=== PATIENT | male | born 1950 | race Caucasian/White ===

== ENCOUNTER 2019-07-08 15:19 | Outpatient (CLI) | payer MEDICARE, OTHER, SELFPAY ==
[2019-07-11 14:05] LABS: Reference Lab Test Result Negative
== END 2019-07-08 15:20 | disposition home or self-care (01) ==
PROVIDERS: PCP Internal Medicine
DX: Z01.84 Encounter for antibody response examination (principal)
CPT/HCPCS: 36415; 86769

== ENCOUNTER 2019-07-20 09:13 | Inpatient (IN) | payer MEDICARE, OTHER, SELFPAY ==
[2019-07-20] VITALS (27 sets, daily range): BP systolic 139–176; BP diastolic 70–94; PULSE 49–69; RESP 12–20; TEMP 36.1–37; O2SAT 99–100; BMI 22.2; BMI 21.4
[2019-07-20 10:28] LABS: Eosinophils Absolute Auto 0.1 K/mm3 (0-0.3); Eosinophils Percent Auto 2.4 % (0-4.4); Hematocrit 23.7 % (42.0-52.0); Hemoglobin 7.6 g/dL (14.0-18.0); Immature Granulocyte Absolute 0.14 K/mm3 (0.00-0.031); Immature Granulocyte Percent A 4.9 % (0-0.5); Lymphocytes Absolute Auto 0.29 K/mm3 (0.9-3.2); Lymphocytes Percent Auto 10.1 % (18.3-44.2); Mean Corpuscular HGB Conc 32.1 g/dl (32-36); Mean Corpuscular Hemoglobin 32.5 pg (26-34); Mean Corpuscular Volume 101.3 fl (80-100); Monocytes Absolute Auto 0.2 K/mm3 (0.1-0.6); Monocytes Percent Auto 6.6 % (2.6-8.5); Neutrophils Absolute Auto 2.1 K/mm3 (1.3-6.7); Platelet Count Result 138 k/mm3 (150-375); Red Blood Count 2.34 M/mm3 (4.6-6.20); Red Cell Distribution Width 16.5 % (11.5-14.5); White Blood Count 2.9 K/mm3 (4.5-10.0)
[2019-07-20 10:37] LABS: INR 1.1; Partial Thromboplastin Time 29.3 SECONDS (22.3-36.8); Prothrombin Time 13.7 Seconds (11.1-14.7)
[2019-07-20 10:40] LABS: Blood Urea Nitrogen 74 mg/dL (9-20); Calcium 9.4 mg/dL (8.4-10.2); Carbon Dioxide 23 mmol/L (22-30); Chloride 101 mmol/L (98-107); Estimated CRCL calculation 8 ml/min; Estimated Glomerular Filt Rate 8; Glucose 89 mg/dL (75-110); Potassium 5.3 mmol/L (3.4-5.0); Sodium 135 mmol/L (137-145)
--- NOTE | 2019-07-20 11:39 | ED.GENADULT ---
HPI - General Adult General Chief complaint: Unspecified Stated complaint: bleeding hemorrhoids Time Seen by Provider: 07/20/19 10:37 History of Present Illness HPI narrative: Patient is a 68-year-old male who presents ER with rectal bleeding. Patient had 2 episodes of large-volume blood come out of his rectum this morning and last night. Patient has history of internal hemorrhoids that have bled to the point of requiring blood transfusion. Feels he may have reached that point again. No dizziness or shortness of breath. He is not on a blood thinner. He has seen Dr. Beltran in the past. Reports chronic constipation. Of note, patient is a renal transplant patient. Related Data Home Medications Medication Instructions Recorded Confirmed atorvastatin 10 mg tablet 10 mg PO DAILY 02/25/19 03/04/19 acetaminophen 500 mg capsule 500 mg PO Q6H PRN 03/04/19 07/20/19 aspirin 81 mg tablet,delayed 81 mg PO DAILY 03/04/19 03/04/19 release famotidine 20 mg tablet 20 mg PO DAILY 03/04/19 03/04/19 prednisone 5 mg tablet 5 mg PO DAILY 03/04/19 03/04/19 valganciclovir 450 mg tablet See Rx Instructions .ROUTE .COMPLEX 03/04/19 03/04/19 belatacept mg IV 07/20/19 calcium polycarbophil [FiberCon] 1,250 mg PO BID 07/20/19 carvedilol BID 07/20/19 cholecalciferol (vitamin D3) 50 mcg PO DAILY 07/20/19 furosemide [Lasix] 80 mg PO DAILY 07/20/19 lactulose See Rx Instructions .ROUTE .COMPLEX 07/20/19 polyethylene glycol 3350 [Miralax] 17 g PO DAILY PRN 07/20/19 sennosides-docusate sodium [Senna PO BID 07/20/19 with Docusate Sodium] sevelamer carbonate TID 07/20/19 sulfamethoxazole-trimethoprim See Rx Instructions .ROUTE .COMPLEX 07/20/19 [Bactrim] sumatriptan succinate mg PO PRN 07/20/19 Allergies Allergy/AdvReac Type Severity Reaction Status Date / Time lisinopril Allergy Severe Swelling Verified 07/20/19 09:44 celecoxib AdvReac Unknown Other Verified 07/20/19 09:42 Anti-InflammatORY MEDS AdvReac Intermediate Other Uncoded 07/20/19 09:43 Review of Systems Review of Systems: All systems reviewed & are unremarkable except as noted in HPI and below Constitutional: Constitutional: Denies chills, Denies fever(s) and Denies weakness ENT: Denies nasal congestion and Denies sore throat Cardiovascular: Cardiovascular: Denies chest pain and Denies radiating jaw, neck or arm pain Gastrointestinal: Gastrointestinal: Denies abdominal pain, Denies nausea and Denies vomiting Comments: Bleeding hemorrhoids Neurologic: Denies dizziness and Denies syncope [facility] Past Medical History Medical History Anemia in chronic kidney disease With history of blood transfusion. Angioedema (~11/2015) Attributed to DARRYN-inhibitor. Benign prostatic hyperplasia Cerebrovascular accident (~2010) Without residual deficit. Chronic back pain Colon polyp (~11/2017) Colonoscopy per Dr. Beltran revealed transverse colon polyp (tubular adenoma), diverticulosis, and internal hemorrhoids. Depression End-stage renal disease on hemodialysis Gastroesophageal reflux disease Hyperlipidemia Hypertension Melanoma Pulmonary embolism Renal transplant failure and rejection Surgical History Surgical History History of bilateral cataract extraction History of inguinal hernia repair History of kidney transplant History of melanoma excision Malignant melanoma excised from the face. History of repair of anterior cruciate ligament of left knee History of repair of right rotator cuff History of toe surgery Right 2nd toe surgery with hardware. Status post creation of arteriovenous fistula Left upper extremity. Family History Family History Mother Cerebrovascular accident Sibling Diabetes mellitus Hypertension Father Coronary artery disease Congestive heart disease Social History Social History (
[2019-07-20 13:54] LABS: Hematocrit 19.8 % (42.0-52.0); Hemoglobin 6.4 g/dL (14.0-18.0)
--- NOTE | 2019-07-20 15:11 | P.PNNP_ITS ---
Progress Note: A&P Assessment and Plan (1) Renal transplant failure and rejection: Code(s): T86.12 - Kidney transplant failure; T86.11 - Kidney transplant rejection Status: Acute (2) S/P kidney transplant: Code(s): Z94.0 - Kidney transplant status Status: Acute (3) Anemia: Code(s): D64.9 - Anemia, unspecified Status: Acute (4) Essential (primary) hypertension: Code(s): I10 - Essential (primary) hypertension Status: Acute Additional Plan * HD today and continue M/W/F schedule - on dialysis given renal transplant failure - hope is that renal tranplant function will improve with time - followed by [facility] * PRBC transfusion PRN * High dose Epogen with HD * GI consultation * Follow H/H FULL CONSULT TO FOLLOW Subjective Date/time seen: 07/20/19 15:11 Patient olerating dialysis at the time of my visit (seen on HD at ~ 3:00PM); no apparent distress noted other that he is hungry and would like to eat something. Exam Narrative: Exam Narrative: General: WD/WN male in NAD Heart: normal S1 and S2; no rub Lungs: clear to auscultation Abdomen: soft, nontender, nondistended, positive bowel sounds Extremities: no cyanosis or clubbing; no edema Skin: warm and dry Objective Data Vital Signs Vital Signs: Vital Signs Temp Pulse Resp BP Pulse Ox 07/20/19 15:00 36.3 C L 60 18 156/79 H 07/20/19 14:44 36.3 C L 59 L 18 147/71 H 07/20/19 13:27 49 L 12 100 07/20/19 12:30 36.1 C L 58 L 20 151/72 H 99 07/20/19 12:28 49 L 12 152/94 H 100 07/20/19 11:16 56 L 15 159/79 H 100 07/20/19 09:31 56 L 07/20/19 09:26 36.1 C L 58 L 14 139/71 100 Intake/Output Intake/Output: Intake & Output 07/17/19 07/18/19 07/19/19 07/20/19 23:59 23:59 23:59 23:59 Intake Total 0 Balance 0 Meds/Results Medications: Active Medications Generic Name Dose Route Start Last Admin Trade Name Freq PRN Reason Stop Dose Admin Epoetin Miguel 20,000 units 07/20/19 19:00 Epogen IV PUSH 07/20/19 19:01 ONCE ONE Acetaminophen 1,000 mg in 100 mls @ 400 mls/hr 07/20/19 11:37 Ofirmev 1,000 Mg Ivpb IVPB 07/21/19 11:38 Q6H PRN Mild Pain (1-3) or Fever Albumin Human 50 mls @ 999 mls/hr 07/20/19 13:03 Albutein IVPB 08/19/19 13:04 Q10M PRN HYPOTENSION Sodium Chloride 250 mls @ 30 mls/hr 07/20/19 13:58 Normal Saline Iv IV CONT 07/20/19 22:17 .Q8H20M STA Morphine Sulfate 4 mg 07/20/19 11:37 Morphine Sulfate Inj IV PUSH Q2H PRN Pain Rated 7-10 Ondansetron HCl 4 mg 07/20/19 11:37 Zofran Inj IV PUSH Q4H PRN Nausea Labs Labs: Laboratory Tests 07/20/19 13:42 07/20/19 10:14
--- NOTE | 2019-07-20 16:14 | WPDGICN ---
Assessment and Plan Assessment and plan (1) Lower GI bleeding: Code(s): K92.2 - Gastrointestinal hemorrhage, unspecified Status: Acute Assessment and Plan: In view of rather massive lower GI bleeding. Plan is for colonoscopy after preparation tonight. Colonoscopy will be performed in the morning. Continue to monitor hemoglobin and transfuse as necessary. (2) Acute on chronic anemia: Code(s): D64.9 - Anemia, unspecified Status: Acute (3) End-stage renal disease on hemodialysis: Code(s): N18.6 - End stage renal disease; Z99.2 - Dependence on renal dialysis Status: Acute Assessment and Plan: Patient receiving transfusion during dialysis this evening. (4) Hypertension: Code(s): I10 - Essential (primary) hypertension Status: Acute (5) S/P kidney transplant: Code(s): Z94.0 - Kidney transplant status Status: Acute Assessment and Plan: Kidney apparently not functioning well after transplantation. Patient remains on dialysis and consideration for additional transplant in the future is being discussed. GI Consult Note Consult date/time: 07/20/19 16:14 HPI: Atiloi Sarmiento is a 68 year old male seen in evaluation at the request of the emergency room. Patient has a history of chronic kidney disease. Underwent renal transplant last year. However new kidney is not working appropriately. Patient remains on dialysis. He has history of hemorrhoids with occasional rectal bleeding. Over the last 2 days has had massive lower GI bleeding with large amount of bright red blood per rectum. Because of massive bleeding he presented the emergency room last evening. He was found to have a hemoglobin of 6.4 today. Baseline hemoglobin several weeks ago with a hemoglobin at 10.4 . Patient denies abdominal pain. His weight appetite has been normal. He does have a tendency to constipation. Patient had a screening colonoscopy prior to renal transplant in 2018 which revealed a benign adenomatous colon polyp. Internal hemorrhoids were also identified at that time. Past medical history is significant for hypertension and arthritis. Medications include atorvastatin, bupropion, carvedilol, calcium, cholecalciferol, famotidine, Lasix, lactulose. Prednisone. Allergies are reported to lisinopril and celecoxib. Review of Systems Review of Systems: All systems reviewed & are unremarkable except as noted in HPI and below PMFSH Past Medical History Medical History Anemia in chronic kidney disease With history of blood transfusion. Angioedema (~11/2015) Attributed to DARRYN-inhibitor. Benign prostatic hyperplasia Cerebrovascular accident (~2010) Without residual deficit. Chronic back pain Colon polyp (~11/2017) Colonoscopy per Dr. Beltran revealed transverse colon polyp (tubular adenoma), diverticulosis, and internal hemorrhoids. Depression End-stage renal disease on hemodialysis Gastroesophageal reflux disease Hyperlipidemia Hypertension Melanoma Pulmonary embolism Renal transplant failure and rejection Surgical History Surgical History History of bilateral cataract extraction History of inguinal hernia repair History of kidney transplant History of melanoma excision Malignant melanoma excised from the face. History of repair of anterior cruciate ligament of left knee History of repair of right rotator cuff History of toe surgery Right 2nd toe surgery with hardware. Status post creation of arteriovenous fistula Left upper extremity. Family History Family History Mother Cerebrovascular accident Sibling Diabetes mellitus Hypertension Father Coronary artery disease Congestive heart disease Social History Social History Social History: The patient
[2019-07-20] MEDS: EPOETIN ALFA 20,000 UNITS/ML VIAL 20000 UNITS IV PUSH (16:42)
--- NOTE | 2019-07-20 16:42 | WPDANESEPP ---
Anes - Eval Pre Procedure Procedure: Operation Date: 07/21/19 08:00 Proposed Procedures p Esophagogastroduodenoscopy & Colonoscopy - Alan Beltran MD Date/Time: 07/20/19 16:42 Pre Op Diagnosis: rectal bleeding/anemia Patient Data Age: 68 Gender: M Height: 5 ft 6 in Weight: 60.3 kg Last Vital Signs Temp 97.6 F 07/20/19 15:16 Pulse 58 L 07/20/19 16:30 Resp 18 07/20/19 15:16 BP 171/70 H 07/20/19 16:30 Pulse Ox 100 07/20/19 13:27 Allergies Allergy/AdvReac Type Severity Reaction Status Date / Time lisinopril Allergy Severe Swelling Verified 07/20/19 09:44 celecoxib AdvReac Unknown Other Verified 07/20/19 09:42 Anti-InflammatORY MEDS AdvReac Intermediate Other Uncoded 07/20/19 09:43 Home Medications Medication Instructions Recorded Confirmed Type tamsulosin 0.4 mg capsule 0.4 mg PO BID #180 cap 02/09/19 03/04/19 Rx atorvastatin 10 mg tablet 10 mg PO DAILY 02/25/19 03/04/19 History acetaminophen 500 mg capsule 500 mg PO Q6H PRN 03/04/19 07/20/19 History aspirin 81 mg tablet,delayed 81 mg PO DAILY 03/04/19 03/04/19 History release famotidine 20 mg tablet 20 mg PO DAILY 03/04/19 03/04/19 History prednisone 5 mg tablet 5 mg PO DAILY 03/04/19 03/04/19 History valganciclovir 450 mg tablet See Rx Instructions .ROUTE .COMPLEX 03/04/19 03/04/19 History bupropion HCl 150 mg tablet,12 hr 150 mg PO BID #180 tablet 04/18/19 Rx sustained-release zolpidem 5 mg tablet 5 mg PO .AT HS #30 tablet 06/30/19 Rx belatacept mg IV 07/20/19 History calcium polycarbophil [FiberCon] 1,250 mg PO BID 07/20/19 History carvedilol BID 07/20/19 History cholecalciferol (vitamin D3) 50 mcg PO DAILY 07/20/19 History furosemide [Lasix] 80 mg PO DAILY 07/20/19 History lactulose See Rx Instructions .ROUTE .COMPLEX 07/20/19 History polyethylene glycol 3350 [Miralax] 17 g PO DAILY PRN 07/20/19 History sennosides-docusate sodium [Senna PO BID 07/20/19 History with Docusate Sodium] sevelamer carbonate TID 07/20/19 History sulfamethoxazole-trimethoprim See Rx Instructions .ROUTE .COMPLEX 07/20/19 History [Bactrim] sumatriptan succinate mg PO PRN 07/20/19 History Laboratory Tests 07/20/19 07/20/19 07/20/19 10:14 10:14 10:14 WBC 2.9 K/mm3 L K/mm3 (4.5-10.0) RBC 2.34 M/mm3 L M/mm3 (4.6-6.20) Hgb 7.6 g/dL L g/dL (14.0-18.0) Hct 23.7 % L % (42.0-52.0) MCV 101.3 fl H fl (80-100) MCH 32.5 pg pg (26-34) MCHC 32.1 g/dl g/dl (32-36) RDW 16.5 % H % (11.5-14.5) Plt Count 138 k/mm3 L k/mm3 (150-375) MPV 11.0 fl H fl (7.4-10.4) Immature Gran % (Auto) 4.9 % H % (0-0.5) Neut % (Auto) 75.0 % H % (45.5-73.1) Lymph % (Auto) 10.1 % L % (18.3-44.2) [place] % (Auto) 6.6 % % (2.6-8.5) Eos % (Auto) 2.4 % % (0-4.4) Baso % (Auto) 1.0 % % (0.2-1.2) Lymph # (Auto) 0.29 K/mm3 L K/mm3 (0.9-3.2) [place] # (Auto) 0.2 K/mm3 K/mm3 (0.1-0.6) Eos # (Auto) 0.1 K/mm3 K/mm3 (0-0.3) Baso # (Auto) 0.0 K/mm3 K/mm3 (0.0-0.1) Abs Immat Gran (auto) 0.14 K/mm3 H K/mm3 (0.00-0.031) Absolute Neuts (auto) 2.1 K/mm3 K/mm3 (1.3-6.7) Absolute Nucleated RBC 0.0 K/mm3 K/mm3 (0.0-0.012) Nucleated RBC % 0.0 % % (0.0-0.2) PT 13.7 Seconds Seconds (11.1-14.7) INR 1.1 APTT 29.3 SECONDS SECONDS (22.3-36.8) Sodium 135 mmol/L L mmol/L (137-145) Potassium 5.3 mmol/L H mmol/L (3.4-5.0) Chloride 101 mmol/L mmol/L (98-107) Carbon Dioxide 23 mmol/L mmol/L (22-30) BUN 74 mg/dL H mg/dL (9-20) Creatinine 7.10 mg/dL H mg/dL (0.7-1.3) Estim Creat Clear Calc 8 ml/min ml/min Estimated GFR 8 L (59 - ) Glucose 89 mg/dL mg/dL (75-110) Calcium 9.4 mg/dL mg/dL
--- NOTE | 2019-07-20 17:00 | PM.IMHP ---
H&P: HPI History of Present Illness Chief complaint: Bleeding hemorrhoids. Narrative: Atilio Sarmiento is a 68-year-old male with end-stage renal disease currently on hemodialysis due to transplant failure, chronic anemia with history of blood transfusions, hypertension, and several other comorbidities who presented to the emergency department earlier this morning for evaluation of bleeding hemorrhoids. He reports hemorrhoidal bleeding over the past 1 month, however over the last 2 days the bleeding has been more severe. This morning he reports passing ?strictly red blood? and thus he came in for evaluation. As mentioned, he has chronic anemia with baseline hemoglobin around 10 grams. On arrival to the emergency department today his hemoglobin was 7.6, with a drop of over 1 gram on repeat lab draw approximately 3 hours later. He is now status post dialysis and did receive blood transfusion at that time. At the time my evaluation, he is drinking his colon prep and feels in his usual state of health. He denies epigastric pain, abdominal pain and rectal pain. No tenesmus. He has not been straining to have bowel movements. No epistaxis, hematuria, or melena. Review of Systems Review of Systems: Narrative: Twelve systems were reviewed with pertinent positives and negatives as per HPI. No fever, chills, or sweats. No recent cold or flu symptoms. He denies chest pain and pleuritic pain. He has occasional dyspnea on exertion, which is unchanged. He denies lower extremity edema. No nausea or vomiting. He still urinates in some amount and denies dysuria. Except as documented, all other systems were reviewed and are negative. [facility] Past Medical History Medical History (Updated 07/20/19 @ 20:19 by Wendy Castellanos PA-C) Anemia in chronic kidney disease With history of blood transfusion. Angioedema (~11/2015) Attributed to DARRYN-inhibitor. Benign prostatic hyperplasia Cerebrovascular accident (~2010) Without residual deficit. Chronic back pain Colon polyp (~11/2017) Colonoscopy per Dr. Beltran revealed transverse colon polyp (tubular adenoma), diverticulosis, and internal hemorrhoids. Depression End-stage renal disease on hemodialysis Gastroesophageal reflux disease Hyperlipidemia Hypertension Melanoma in situ Pulmonary embolism Renal transplant failure and rejection (~01/2019) Surgical History Surgical History (Updated 07/20/19 @ 20:19 by Wendy Castellanos PA-C) History of bilateral cataract extraction History of inguinal hernia repair History of kidney transplant History of melanoma excision Melanoma in situ excised from the face. History of repair of anterior cruciate ligament of left knee History of repair of right rotator cuff History of toe surgery Right 2nd toe surgery with hardware. Status post creation of arteriovenous fistula Left upper extremity. Family History Family History Mother Cerebrovascular accident Sibling Diabetes mellitus Hypertension Father Coronary artery disease Congestive heart disease Social History Social History (Updated 07/20/19 @ 20:20 by Wendy Castellanos PA-C) Social History: The patient is and lives with his in [place]. 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 He is a lifelong nonsmoker and denies alcohol and drug abuse. He designates his , Brigid, as his surrogate decision maker and he wishes to be a full code. Spiritual care concerns: No Meds Home Medications and Allergies Home Medications Medication Instructions Recorded Confirmed Type tamsulosin 0.4 mg capsule 0.4 mg PO BID #180 cap 02/09/19 07/20/19 Rx atorvastatin 10 mg tablet 10 mg PO DAILY 02/25/19 07/20/19 History acetaminophen 500 mg capsule 500 mg PO Q6H PRN 03/04/19 07/20/19 History famotidine 20 mg tablet 20 mg PO DAILY 03/04/19 07/20/19 History prednisone 5 mg tablet 5 mg PO DAILY 03/04/19 07/20/19 History valganciclovir 450 mg
[2019-07-20] MEDS: PEG (High)/E-LYTE SOLN 4,000 ML BTL 4000 ML PO (17:57)
[2019-07-20 18:32] LABS: Hematocrit 24.1 % (42.0-52.0); Hemoglobin 8.1 g/dL (14.0-18.0)
[2019-07-20] MEDS: carvediloL 12.5 MG TABLET PO (21:30)
[2019-07-20] MEDS: TAMSULOSIN HCL 0.4 MG CAPSULE PO (22:41)
[2019-07-21] VITALS (14 sets, daily range): BP systolic 115–162; BP diastolic 60–71; PULSE 56–78; RESP 16–20; TEMP 36.6–37.1; O2SAT 99–100
[2019-07-21] LABS: Hematocrit 27.2 % (42.0-52.0); Hemoglobin 8.9 g/dL (14.0-18.0)
[2019-07-21 06:34] LABS: Basophils Percent Auto 0.6 % (0.2-1.2); Eosinophils Percent Auto 2.5 % (0-4.4); Hematocrit 24.6 % (42.0-52.0); Hemoglobin 8.3 g/dL (14.0-18.0); Immature Granulocyte Absolute 0.02 K/mm3 (0.00-0.031); Immature Granulocyte Percent A 1.3 % (0-0.5); Lymphocytes Absolute Auto 0.24 K/mm3 (0.9-3.2); Mean Corpuscular HGB Conc 33.7 g/dl (32-36); Mean Corpuscular Hemoglobin 32.2 pg (26-34); Mean Corpuscular Volume 95.3 fl (80-100); Mean Platelet Volume 9.9 fl (7.4-10.4); Monocytes Absolute Auto 0.1 K/mm3 (0.1-0.6); Monocytes Percent Auto 8.8 % (2.6-8.5); Neutrophils Absolute Auto 1.2 K/mm3 (1.3-6.7); Neutrophils Percent Auto 71.8 % (45.5-73.1); Platelet Count Result 117 k/mm3 (150-375); Red Blood Count 2.58 M/mm3 (4.6-6.20); Red Cell Distribution Width 16.2 % (11.5-14.5)
[2019-07-21 06:40] LABS: White Blood Count 1.6 K/mm3 (4.5-10.0)
[2019-07-21 06:54] LABS: Blood Urea Nitrogen 33 mg/dL (9-20); Calcium 8.5 mg/dL (8.4-10.2); Carbon Dioxide 29 mmol/L (22-30); Chloride 98 mmol/L (98-107); Estimated CRCL calculation 14 ml/min; Estimated Glomerular Filt Rate 15; Glucose 80 mg/dL (75-110); Potassium 3.9 mmol/L (3.4-5.0); Sodium 138 mmol/L (137-145)
[2019-07-21] MEDS: SODIUM CHLORIDE 0.9% IV 500 ML 10 ML IV CONT (07:33)
--- NOTE | 2019-07-21 07:53 | PC.NURSE ---
Pt off the floor for his EGD and colonoscopy this am.
--- NOTE | 2019-07-21 08:23 | SUR.OPER ---
SPOKE WITH DR. BROOKS AND HE IS AWARE OF 1.1 WBC, INFORMED HIS BILATERAL KNEE REPLACEMENTS WERE BOTH WITHIN THE PAST YEAR PT IS ON SEPTRA INPAT. DR. BROOKS DOES NOT WANT OTHER ANTIBIOTICS GIVEN
--- NOTE | 2019-07-21 08:31 | SUR.OPER ---
COLON ENDED AT 0824 EGD STARTED AT 0831
--- NOTE | 2019-07-21 08:36 | WPDGIPROGNO ---
Progress Note: A&P Additional Plan Patient alert and comfortable. he noted some additional bleeding with preparation for colonoscopy. Bright red blood per rectum described. He denies abdominal or rectal pain. Physical exam reveals him to be alert. Comfortable at rest. Lungs are clear. Heart without murmur. Abdomen is soft and nontender. Digital external rectal exam reveals no masses. Labs reveal hemoglobin 8.3 after transfusion. WBC has decreased to 1.6. Platelets 117 K. impression 1. Acute on chronic anemia. GI blood loss recently from rectal area. Hemorrhoids identified by colonoscopy. These may require surgery because of profound decline in hemoglobin recently. EGD today was unremarkable aside from hiatal hernia. 2.. Leukopenia. Decline in WBC and platelet count suggest he may have hematologic process in place. Consider Hematology evaluation. Continue to monitor hemoglobin. 3. End-stage renal disease. Failed renal transplant patient reminds on dialysis. Likely chronic kidney disease contributes to his baseline chronic anemia. Subjective Date/time seen: 07/21/19 08:36 Objective Data Vital Signs Vital Signs: Vital Signs - 24 hr 07/20/19 09:26 07/20/19 09:31 07/20/19 11:16 Temperature 36.1 C L Pulse Rate 58 L 56 L 56 L Respiratory Rate 14 15 Blood Pressure 139/71 159/79 H Pulse Oximetry 100 100 07/20/19 12:28 07/20/19 12:30 07/20/19 13:27 Temperature 36.1 C L Pulse Rate 49 L 58 L 49 L Respiratory Rate 12 20 12 Blood Pressure 152/94 H 151/72 H Pulse Oximetry 100 99 100 07/20/19 14:01 07/20/19 14:15 07/20/19 14:30 Temperature 36.3 C L Pulse Rate 51 L 59 L 56 L Respiratory Rate 18 Blood Pressure 147/77 H 147/71 H 146/70 H Pulse Oximetry 07/20/19 14:44 07/20/19 14:45 07/20/19 15:00 Temperature 36.3 C L 36.3 C L Pulse Rate 59 L 58 L 60 Respiratory Rate 18 18 Blood Pressure 147/71 H 155/72 H 156/79 H Pulse Oximetry 07/20/19 15:15 07/20/19 15:16 07/20/19 15:30 Temperature 36.4 C Pulse Rate 56 L 56 L 61 Respiratory Rate 18 Blood Pressure 162/76 H 162/76 H 162/82 H Pulse Oximetry 07/20/19 15:45 07/20/19 16:00 07/20/19 16:15 Temperature Pulse Rate 60 58 L 67 Respiratory Rate Blood Pressure 153/77 H 163/79 H 176/91 H Pulse Oximetry 07/20/19 16:30 07/20/19 16:45 07/20/19 17:00 Temperature Pulse Rate 58 L 60 58 L Respiratory Rate Blood Pressure 171/70 H 163/81 H 160/78 H Pulse Oximetry 07/20/19 17:03 07/20/19 17:08 07/20/19 20:23 Temperature 36.7 C Pulse Rate 58 L 63 69 Respiratory Rate 18 Blood Pressure 164/79 H 166/82 H Pulse Oximetry 07/20/19 21:30 07/20/19 22:00 07/21/19 00:00 Temperature 36.9 C Pulse Rate 67 69 56 L Respiratory Rate 16 Blood Pressure 170/79 H Pulse Oximetry 100 07/21/19 04:00 07/21/19 06:00 07/21/19 07:16 Temperature 36.7 C 37.1 C Pulse Rate 64 62 66 Respiratory Rate 16 16 Blood Pressure 156/71 H 162/66 H Pulse Oximetry 100 100 Intake/Output Intake/Output: Intake & Output 07/18/19 07/19/19 07/20/19 07/21/19 23:59 23:59 23:59 23:59 Intake Total 850 3250 Output Total 1600 Balance -750 3250 Meds/Results Medications: Active Medications Generic Name Dose Route Start Last Admin Trade Name Freq PRN Reason Stop Dose Admin Acetaminophen 500 mg 07/20/19 20:26 Tylenol Tablet PO Q6H PRN Mild Pain (Scale Score 1-4) Atorvastatin Calcium 10 mg 07/21/19 09:00 Lipitor PO DAILY JESSA Bupropion HCl 150 mg 07/20/19 21:00 07/20/19 21:30 Wellbutrin-Sr (12 Hr) PO 150 mg Q12HR JESSA Administration Calcium Polycarbophil 1,250 mg 07/21/19 09:00 Fiber Con PO BID JESSA Carvedilol 12.5 mg 07/20/19 21:00 07/20/19 21:30 Coreg PO 12.5 mg Q12HR JESSA Administration Famotidine 20 mg 07/21/19 09:00 Pepcid PO DAILY JESSA Furosemide 80 mg 07/21/19 09:00 Lasix Tablet PO DAILY
[2019-07-21] MEDS: TAMSULOSIN HCL 0.4 MG CAPSULE PO ×2 (10:03→16:17)
[2019-07-21] MEDS: CHOLECALCIFEROL 1,000 UNIT TABLET 2000 UNITS PO (10:03)
[2019-07-21] MEDS: SEVELAMER CARBONATE 800 MG TABLET BY MOUTH ×3 (10:03→16:17)
[2019-07-21] MEDS: SENNA/DOCUSATE SODIUM TABLET 1 TAB PO ×2 (10:04→16:17)
[2019-07-21] MEDS: FUROSEMIDE 80 MG TABLET PO (10:04)
[2019-07-21] MEDS: calcium polycarbophiL 625 MG TABLET 1250 MG PO ×2 (10:04→16:16)
[2019-07-21] MEDS: predniSONE 5 MG TABLET PO (10:04)
[2019-07-21] MEDS: ATORVASTATIN 10 MG TABLET PO (10:04)
[2019-07-21] MEDS: carvediloL 12.5 MG TABLET PO ×2 (10:04→20:45)
[2019-07-21] MEDS: FAMOTIDINE 20 MG TABLET PO (10:05)
--- NOTE | 2019-07-21 12:45 | PM.CNNEP ---
Assessment and Plan Assessment and plan (1) S/P kidney transplant: Code(s): Z94.0 - Kidney transplant status Status: Acute (2) Renal transplant failure and rejection: Code(s): T86.12 - Kidney transplant failure; T86.11 - Kidney transplant rejection Status: Acute (3) Rectal bleeding: Code(s): K62.5 - Hemorrhage of anus and rectum Status: Acute (4) Anemia: Code(s): D64.9 - Anemia, unspecified Status: Acute (5) Hypertension: Qualifiers: Hypertension type: essential hypertension Qualified Code(s): I10 - Essential (primary) hypertension Code(s): I10 - Essential (primary) hypertension Status: Acute Assessment and Plan: . Additional Plan HD tomorrow and continue M/W/F schedule PRBC transfusion Surgery consultation regarding hemorrhoids High dose Epogen with HD continue transplant medications GI following s/p colonoscopy Follow trend of H/H Will continue to follow. History of Present Illness Reason for Consult Consult date: 07/21/19 Reason for consult: acute renal failure (s/p renal transplant failure) Chief Complaint Chief complaint: Bleeding hemorrhoids. History of Present Illness Narrative: The patient is a 68-year-old male with a past medical history as outlined below who presented to [facility] emergency room yessterday for evaluation of bleeding hemorrhoids. He state he has been having hemorrhoidal bleeding over the past month but recently, in the last 2 - 3 days, he has noted the bleeding to be more severe. On the morning of admision, he states he was passing a significant amount of bright red blood. For this reason, he came to the ER for further evaluation. Workup and evaluation in the emergency room demonstrated the a for mention hemorrhoidal bleeding with routine blood test showing a hemoglobin of 7.6 given the constellation of symptoms that he mention as well as the a for mentioned hemoglobin result, he was admitted the hospital for further evaluation and therapy it should be noted that 3 hr after the initial blood draw, his hemoglobin dropped even further to 6.5 and is tentatively going to be transfused with a unit of packed red blood cells with his dialysis treatment. Renal consultation was requested due to his dialysis dependent renal failure. The patient recently had a renal transplant for his end-stage renal disease. 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 Since this issue began in May, he has been back on dialysis on Thursday schedule under my care at [facility]. He received dialysis yesterday and is due for dialysis tomorrow to maintain this schedule. Currently, he appears to be doing reasonably well with no other acute issues or complaints voiced at this time. Review of Systems Review of Systems: Narrative: As per HPI. [facility] Past Medical History Medical History Anemia in chronic kidney disease With history of blood transfusion. Angioedema (~11/2015) Attributed to DARRYN-inhibitor. Benign prostatic hyperplasia Cerebrovascular accident (~2010) Without residual deficit. Chronic back pain Colon polyp (~11/2017) Colonoscopy per Dr. Beltran revealed transverse colon polyp (tubular adenoma), diverticulosis, and internal hemorrhoids. Depression End-stage renal disease on hemodialysis Gastroesophageal reflux disease Hyperlipidemia Hypertension Melanoma in situ Pulmonary embolism Renal transplant failure and rejection (~01/2019) Surgical History Surgical History (Reviewed 07/01
[2019-07-21 14:01] LABS: Hematocrit 26.4 % (42.0-52.0); Hemoglobin 8.4 g/dL (14.0-18.0)
--- NOTE | 2019-07-21 15:41 | PM.CNGS ---
Assessment and Plan Assessment and plan (1) Hemorrhoids, internal, with bleeding: Code(s): K64.8 - Other hemorrhoids Status: Acute Assessment and Plan: The patient was found to have internal hemorrhoids with stigmata of bleeding during his Colonoscopy today associated with profound anemia. The patient was seen in evaluation with Dr. Babcock and treatment options were discussed, including the recommendation of proceeding with anoscopy with rubberband ligation. Description of the procedure, risks, benefits, indications, and expected outcomes were discussed with the patient in detail. All questions were answered. The patient was agreeable to proceed with the bedside procedure today. He tolerated this well and we discussed instructions with the patient after discharge. Will plan to have the patient follow-up with Dr. Babcock in 3 weeks in our office and call sooner if he has any significant pain or rectal bleeding prior to the appointment. Would recommend continuing his currently bowel regimen and also adding Metamucil 1-2 times daily. Also instructed the patient to run warm water with his shower head over perianal area twice daily. Patient is agreeable to staying overnight and will recheck labs again in the morning. Thank you for allowing us to see the patient in consultation. (2) Anemia: Code(s): D64.9 - Anemia, unspecified Status: Acute Assessment and Plan: Received 1 transfusion and hemoglobin stable at 8.4. Will continue to monitor labs. Should stabilize following rubberband ligation. (3) Rectal bleeding: Code(s): K62.5 - Hemorrhage of anus and rectum Status: Acute (4) End-stage renal disease on hemodialysis: Code(s): N18.6 - End stage renal disease; Z99.2 - Dependence on renal dialysis Status: Acute (5) S/P kidney transplant: Code(s): Z94.0 - Kidney transplant status Status: Acute (6) Chronic idiopathic constipation: Code(s): K59.04 - Chronic idiopathic constipation Status: Acute Assessment and Plan: Will add Metamucil as discussed above. Continue normal bowel regimen he was taking previously on discharge for the constipation. (7) Hypertension: Code(s): I10 - Essential (primary) hypertension Status: Acute (8) BPH w/o urinary obs/LUTS: Code(s): N40.0 - Benign prostatic hyperplasia without lower urinary tract symptoms Status: Acute (9) Hyperlipidemia, unspecified: Code(s): E78.5 - Hyperlipidemia, unspecified Status: Acute (10) Pancytopenia: Code(s): D61.818 - Other pancytopenia Status: Acute Additional Plan Discussed and formulated plan of care with Dr. Babcock today. History of Present Illness Consult details Consult date: 07/21/19 Reason for consult: other (Internal hemorrhoids with bleeding and anemia.) Requesting physician: Alan Beltran MD Narrative: The patient is a 68-year-old male who has end-stage renal disease with failed renal transplant currently on hemodialysis, chronic anemia with a history of transfusions, chronic constipation, hypertension, and multiple other medical problems. He presented to the emergency department yesterday with complaints of significant rectal bleeding. He reports having a known history of hemorrhoids that have had issues with bleeding in the past. He reports that typically he is able to apply pressure with a wet wipe after a bowel movement and the bleeding stops. On Thursday, he reports noticing a significant amount of bleeding per his rectum, more than he had in the past, which required the help of his to get the bleeding to stop with applying pressure with a wash cloth. After about 10-15 minutes, he reports the bleeding resolved. He called his transplant team to notify them of this issue and for guidance, and they instructed him to go to the nearest ER for evaluation. ER workup revealed anemia with a hemoglobin of 7.6 and neutropenia. The patient was
--- NOTE | 2019-07-21 15:48 | PM.IMPN ---
Progress Note: A&P Assessment and Plan (1) Hemorrhoids, internal, with bleeding: Code(s): K64.8 - Other hemorrhoids Status: Acute Assessment and Plan: The patient reports a hx of hemorrhoids. He presented to the ED with c/o bleeding hemorrhoids. He reports mild bleeding for the past 1-2 months which worsening in the past 2-3 weeks. He reports two episodes of large volume blood loss Tuesday 07/18 which prompted him to proceed to the ED. He underwent colonosopy by Dr. Beltran today which revealed large internal hemorrhoids with bleeding stigmata which were the likely etiology for his bleeding. He also had extensive medium sized diverticula without active bleeding. General surgery has been consulted as his hemorrhoids have caused profound anemia Continue bowel regimen to prevent constipation Continue to stress the importance of avoiding straining during bowel movements Continue high fiber diet and fiber supplement (2) Acute on chronic anemia: Code(s): D64.9 - Anemia, unspecified Status: Acute Assessment and Plan: He has chronic anemia, likely due to his renal disease and anti-rejection regimen, with baseline Hb 10.3 and Hct 32. Hb at presentation was 07/19 was 7.6g/dL and Hct 23.7%. Hb decreased to 6.4g/dL and Hct 19.8% three hours later and he received 1 unit pRBC yesterday. Hb and Hct are stable today at 8.4g/dL and 26.4% respectively. Vitamin B12, folate, and iron are pending. Continue to monitor hemoglobin and hematocrit closely He will receive epogen with HD per nephrology Transfuse pRBC PRN (3) End-stage renal disease on hemodialysis: Code(s): N18.6 - End stage renal disease; Z99.2 - Dependence on renal dialysis Status: Acute Assessment and Plan: The patient is s/p renal transplant in January 2019, with subsequent failure in June 2019. He follows with the transplant team at [place] and his meat team lead is Dr. Patrick. He is on HD M/W/F. Nephrology is on board and recommendations are greatly appreciated Continue HD on M/W/F schedule per nephrology (4) Hypertension: Qualifiers: Hypertension type: essential hypertension Qualified Code(s): I10 - Essential (primary) hypertension Code(s): I10 - Essential (primary) hypertension Status: Acute Assessment and Plan: Blood pressures were reviewed and are at target. Continue carvedilol Continue lasix Continue to monitor (5) Pancytopenia: Code(s): D61.818 - Other pancytopenia Status: Acute Assessment and Plan: The patient was noted to have pancytopenia. His WBC was 2.9 k/mm3 07/19 and 1.6 today on repeat labs. His absolute neutrophil count is 1.2 k/mm3. His platelet count was 138 k/mm3 07/19 and repeat platelet count today was 117 k/mm3. Hb is 8.3 g/dL and Hct 24.6%. I called to discuss this with Mariely, his construction coordinator with [facility]. She recommended I call and speak with Dr. Webb, one of the renal transplant specialists. She advised that I check CMV DNA PCR and BK DNA PCR and call their team with the results once available. She discussed this is likely due to medications given for his renal transplant/anti-rejection regimen. She advised that he was fine to discharge but will need close outpatient follow-up with the transplant team in 1 week. He will also need repeat labs on Monday 07/24. Plan to send CMV and BK results to [facility] transplant team Subjective Date/time seen: 07/21/19 12:45 Interval history: Mr. Sarmiento is seen and examined at bedside following EGD and colonoscopy earlier today in follow-up for acute on chronic anemia due to hemorrhoids and ESRD. He reports that he is very hungry and eager to eat. He denies further rectal bleeding today. He reports that he generally is generally constipated but is on an bowel regimen which works well. He denies chest pain and shortness of breath. He denies headaches, lightheadedness, and wea
--- NOTE | 2019-07-21 15:55 | P.OP_ITS ---
Procedure Note - Detailed Date of procedure: 07/21/19 Pre-op diagnosis: Bleeding hemorrhoids. Bleeding internal hemorrhoids Post-op diagnosis: same Procedure performed: Anoscopy with rubber-band ligation of internal hemorrhoids Description of procedure: Time-out was performed confirming patient and planned procedure being a anoscopy with hemorrhoid ligation. With the patient in the left lateral decubitus position and Marcelina our SIDE STAPLER helping me we carefully positioned the patient such that I could easily performing anoscopy. This was with his buttocks right at the edge of his bed. I then performed anoscopy completely circumferentially which revealed a large left lateral internal hemorrhoid that appeared to be somewhat irritated and had the signs of previous or fairly recent bleeding. He also had a similar sized right posterolateral Hemorrhoid with some excoriations on it suggesting recent bleeding. and lastlly a small to medium right anterolateral internal hemorrhoid without any signs of recent bleeding. He has a small anterior anal tag externally andno other external hemorrhoids. Following this the anoscope was positioned to expose the left lateral side of the area just above the dentate line. Following this we could see the large irritated internal hemorrhoid. I used the hemorrhoidal grasper to carefully pinch its base and the patient did not complain of any significant pain. Therefore, I passed a grasper through the loop of the hemorrhoid ligator which had been loaded with a black latex rubber band. We then advanced the ligation device over the grasper to the base of the hemorrhoid and fired it releasing the rubber band. There was briefly some mild bright red bleeding. I used a Kleenex through the anoscope to put pressure on this for about 1 minute. I then removed the Kleenex and carefully inspected it. I could see the band in good position. The patient was not having significant pain. I then removed the anoscope waited for about 1-2 minutes the patient stated that he had some aching discomfort but otherwise no sharp discomfort. We therefore placed the anoscope back again such that I could see the right posterior large irritated hemorrhoid and similar procedure was then done to apply another rubber-band at the base of this internal hemorrhoid. The scope was removed and the patient tolerated the procedure well. Estimated blood loss about 5 cc. Surgeon: Saji Babcock MD Drains: No Packing: No Pathology: none sent Complications: No immediate complications Condition: stable Disposition: floor
[2019-07-21 17:48] LABS: Iron 73 ug/dL (49-181)
[2019-07-21 17:59] LABS: Percent Iron Saturation 29 % (20-50)
[2019-07-21 20:08] LABS: Folic Acid 6.1 ng/mL (2.76->20)
[2019-07-21] MEDS: ZOLPIDEM TARTRATE 5 MG TABLET PO (20:45)
[2019-07-22] VITALS (22 sets, daily range): BP systolic 125–158; BP diastolic 61–79; PULSE 51–78; RESP 12–18; TEMP 35.9–37; O2SAT 97–98
[2019-07-22 05:46] LABS: Basophils Percent Auto 0.7 % (0.2-1.2); Eosinophils Percent Auto 2.1 % (0-4.4); Hematocrit 21.8 % (42.0-52.0); Hemoglobin 7.2 g/dL (14.0-18.0); Immature Granulocyte Absolute 0.08 K/mm3 (0.00-0.031); Immature Granulocyte Percent A 5.5 % (0-0.5); Lymphocytes Absolute Auto 0.28 K/mm3 (0.9-3.2); Lymphocytes Percent Auto 19.2 % (18.3-44.2); Mean Corpuscular Volume 96.9 fl (80-100); Mean Platelet Volume 10.4 fl (7.4-10.4); Monocytes Absolute Auto 0.1 K/mm3 (0.1-0.6); Monocytes Percent Auto 8.2 % (2.6-8.5); Neutrophils Absolute Auto 0.9 K/mm3 (1.3-6.7); Neutrophils Percent Auto 64.3 % (45.5-73.1); Platelet Count Result 109 k/mm3 (150-375); Red Blood Count 2.25 M/mm3 (4.6-6.20); Red Cell Distribution Width 16.3 % (11.5-14.5)
[2019-07-22 05:54] LABS: Blood Urea Nitrogen 51 mg/dL (9-20); Calcium 8.6 mg/dL (8.4-10.2); Carbon Dioxide 27 mmol/L (22-30); Chloride 98 mmol/L (98-107); Estimated CRCL calculation 10 ml/min; Estimated Glomerular Filt Rate 10; Glucose 82 mg/dL (75-110); Potassium 4.2 mmol/L (3.4-5.0); Sodium 135 mmol/L (137-145)
[2019-07-22 06:15] LABS: White Blood Count 1.5 K/mm3 (4.5-10.0)
[2019-07-22 06:16] LABS: Anisocytosis 2+ (NORMAL); Ovalocytes 1+ (NORMAL); Platelet Estimate Adequate (Adequate)
--- NOTE | 2019-07-22 07:40 | WPDANESPN ---
Anes - Prog Note Post-Op Date/Time: 07/22/19 07:40 Cardiovascular status: normal Respiratory status: normal Airway patency: baseline Mental status: baseline Post-Op hydration status: normal Vital Signs: Last Vital Signs Temp 36.6 C 07/22/19 06:00 Pulse 68 07/22/19 06:00 Resp 16 07/22/19 06:00 BP 158/64 H 07/22/19 06:00 Pulse Ox 97 07/22/19 06:00 I/O: Intake & Output 07/21/19 07/21/19 07/22/19 15:59 23:59 07:59 Intake Total 490 470 300 Output Total 500 200 Balance 490 -30 100 Laboratory Tests 07/22/19 05:11 07/22/19 05:11 07/21/19 07/21/19 07/21/19 06:19 06:28 13:55 WBC RBC Hgb 8.4 L Hct 26.4 L MCV MCH MCHC RDW Plt Count MPV Immature Gran % (Auto) Neut % (Auto) Lymph % (Auto) Burnet % (Auto) Eos % (Auto) Baso % (Auto) Lymph # (Auto) Burnet # (Auto) Eos # (Auto) Baso # (Auto) Abs Immat Gran (auto) Absolute Neuts (auto) Absolute Nucleated RBC Nucleated RBC % Platelet Estimate Anisocytosis Ovalocytes Sodium Potassium Chloride Carbon Dioxide BUN Creatinine Estim Creat Clear Calc Estimated GFR Glucose Calcium Iron 73 TIBC 253 L % Saturation 29 Ferritin 1130.00 H Vitamin B12 786.0 Folate 6.1 CMV DNA Quant PCR CMV DNA Qnt Source CMV Qnt PCR log IU/mL BK Virus Spec Source BK Virus DNA Quant PCR 07/21/19 07/21/19 07/22/19 13:55 13:55 05:11 WBC 1.5 L* RBC 2.25 L Hgb 7.2 L Hct 21.8 L MCV 96.9 MCH 32.0 MCHC 33.0 RDW 16.3 H Plt Count 109 L MPV 10.4 Immature Gran % (Auto) 5.5 H Neut % (Auto) 64.3 Lymph % (Auto) 19.2 Burnet % (Auto) 8.2 Eos % (Auto) 2.1 Baso % (Auto) 0.7 Lymph # (Auto) 0.28 L Burnet # (Auto) 0.1 Eos # (Auto) 0.0 Baso # (Auto) 0.0 Abs Immat Gran (auto) 0.08 H Absolute Neuts (auto) 0.9 L Absolute Nucleated RBC 0.0 Nucleated RBC % 0.0 Platelet Estimate Adequate Anisocytosis 2+ Ovalocytes 1+ Sodium Potassium Chloride Carbon Dioxide BUN Creatinine Estim Creat Clear Calc Estimated GFR Glucose Calcium Iron TIBC % Saturation Ferritin Vitamin B12 Folate CMV DNA Quant PCR Pending CMV DNA Qnt Source Pending CMV Qnt PCR log IU/mL Pending BK Virus Spec Source Pending BK Virus DNA Quant PCR Pending 07/22/19 05:11 WBC RBC Hgb Hct MCV MCH MCHC RDW Plt Count MPV Immature Gran % (Auto) Neut % (Auto) Lymph % (Auto) Burnet % (Auto) Eos % (Auto) Baso % (Auto) Lymph # (Auto) Burnet # (Auto) Eos # (Auto) Baso # (Auto) Abs Immat Gran (auto) Absolute Neuts (auto) Absolute Nucleated RBC Nucleated RBC % Platelet Estimate Anisocytosis Ovalocytes Sodium 135 L Potassium 4.2 Chloride 98 Carbon Dioxide 27 BUN 51 H D Creatinine 5.50 H Estim Creat Clear Calc 10 Estimated GFR 10 L Glucose 82 Calcium 8.6 Iron TIBC % Saturation Ferritin Vitamin B12 Folate CMV DNA Quant PCR CMV DNA Qnt Source CMV Qnt PCR log IU/mL BK Virus Spec Source BK Virus DNA Quant PCR Post-procedural complaints: none Patient Feedback: Patient satisfied with anesthetic care.
[2019-07-22] MEDS: CHOLECALCIFEROL 1,000 UNIT TABLET 2000 UNITS PO (07:48)
[2019-07-22] MEDS: predniSONE 5 MG TABLET PO (07:49)
[2019-07-22] MEDS: SEVELAMER CARBONATE 800 MG TABLET BY MOUTH ×2 (07:49→12:41)
[2019-07-22] MEDS: carvediloL 12.5 MG TABLET PO (07:49)
[2019-07-22] MEDS: FAMOTIDINE 20 MG TABLET PO (07:49)
[2019-07-22] MEDS: ATORVASTATIN 10 MG TABLET PO (07:49)
[2019-07-22] MEDS: TAMSULOSIN HCL 0.4 MG CAPSULE PO (07:50)
[2019-07-22] MEDS: calcium polycarbophiL 625 MG TABLET 1250 MG PO (07:50)
[2019-07-22] MEDS: SENNA/DOCUSATE SODIUM TABLET 1 TAB PO (07:50)
[2019-07-22] MEDS: FUROSEMIDE 80 MG TABLET PO (07:50)
[2019-07-22] MEDS: ACETAMINOPHEN 500 MG TABLET PO (07:53)
--- NOTE | 2019-07-22 08:03 | WPDGIPROGNO ---
Progress Note: A&P Additional Plan patient alert and comfortable this morning. Had initial hemorrhoid banding yesterday. Physical exam reveals patient to be alert. Comfortable at rest. He is anicteric. Abdomen is soft and nontender. Labs reveal WBC 1.5, hemoglobin 7.2, hematocrit 21.8, platelets 109 K. impression 1. Internal hemorrhoids. Now status post banding appear to been source a recent massive rectal bleeding. Follow-up with Dr. Babcock for additional banding at a later date. High-fiber diet suggested. 2. History of colon polyps. No polyps at this time. Follow-up colonoscopy in 5 years suggested. 3. Acute on chronic anemia. Chronic anemia likely related to kidney disease. Acute anemia could be from GI bleeding. Patient also on immunosuppressant medications for recent kidney transplant. 4. Pancytopenia. Likely related to immunosuppressants related to a kidney transplant. Patient should follow up with Renal Transplant surgery. Continue to monitor CBC frequently. Plan hopefully early discharge. As stated should follow up with Renal Transplant surgery. CBC will need to be monitored closely. Subjective Date/time seen: 07/22/19 08:03 Objective Data Vital Signs Vital Signs: Vital Signs - 24 hr 07/21/19 08:39 07/21/19 08:49 07/21/19 08:59 Temperature Pulse Rate 59 L 65 63 Respiratory Rate 16 20 19 Blood Pressure 115/61 128/65 136/68 Pulse Oximetry 99 99 99 07/21/19 12:44 07/21/19 14:00 07/21/19 16:00 Temperature 36.6 C Pulse Rate 63 70 69 Respiratory Rate 16 Blood Pressure 136/65 Pulse Oximetry 100 07/21/19 20:00 07/21/19 20:45 07/21/19 22:00 Temperature 36.8 C Pulse Rate 78 78 60 Respiratory Rate 16 16 Blood Pressure 139/60 Pulse Oximetry 100 99 07/22/19 00:00 07/22/19 04:00 07/22/19 06:00 Temperature 36.6 C Pulse Rate 63 61 68 Respiratory Rate 16 Blood Pressure 158/64 H Pulse Oximetry 97 07/22/19 07:49 Temperature Pulse Rate 68 Respiratory Rate Blood Pressure Pulse Oximetry Intake/Output Intake/Output: Intake & Output 07/19/19 07/20/19 07/21/19 07/22/19 23:59 23:59 23:59 23:59 Intake Total 850 3960 300 Output Total 1600 500 200 Balance -750 3460 100 Meds/Results Medications: Active Medications Generic Name Dose Route Start Last Admin Trade Name Freq PRN Reason Stop Dose Admin Acetaminophen 500 mg 07/20/19 20:26 07/22/19 07:53 Tylenol Tablet PO 500 mg Q6H PRN Administration Mild Pain (Scale Score 1-4) Atorvastatin Calcium 10 mg 07/21/19 09:00 07/22/19 07:49 Lipitor PO 10 mg DAILY JESSA Administration Bupropion HCl 150 mg 07/20/19 21:00 07/22/19 07:48 Wellbutrin-Sr (12 Hr) PO 150 mg Q12HR JESSA Administration Calcium Polycarbophil 1,250 mg 07/21/19 09:00 07/22/19 07:50 Fiber Con PO 1,250 mg BID JESSA Administration Carvedilol 12.5 mg 07/20/19 21:00 07/22/19 07:49 Coreg PO 12.5 mg Q12HR JESSA Administration Epoetin Miguel 20,000 units 07/22/19 18:47 Epogen IV PUSH 07/22/19 18:48 ONCE ONE Famotidine 20 mg 07/21/19 09:00 07/22/19 07:49 Pepcid PO 20 mg DAILY JESSA Administration Furosemide 80 mg 07/21/19 09:00 07/22/19 07:50 Lasix Tablet PO 80 mg DAILY JESSA Administration Albumin Human 50 mls @ 999 mls/hr 07/20/19 13:03 Albutein IVPB 08/19/19 13:04 Q10M PRN HYPOTENSION Morphine Sulfate 4 mg 07/20/19 11:37 Morphine Sulfate Inj IV PUSH Q2H PRN Pain Rated 7-10 Non-Formulary Medication 0 % 07/20/19 20:30 Belatacept [Nulojix] .ROUTE 08/19/19 20:31 .COMPLEX JESSA Non-Formulary Medication 0 % 07/20/19 20:30 Valganciclovir .ROUTE 08/19/19 20:31 .COMPLEX JESSA Ondansetron HCl 4 mg 07/20/19 11:37 Zofran Inj IV PUSH Q4H PRN Nausea Polyethylene Glycol 17 gm 07/20/19 20:26 Miralax PO DAILY PRN Constipation Prednisone 5 mg 07/21/19 09:00
--- NOTE | 2019-07-22 08:57 | PC.NURSE ---
Patient to dialysis per bed.
--- NOTE | 2019-07-22 09:17 | PM.PNGS ---
Progress Note: A&P Assessment and Plan (1) Hemorrhoids, internal, with bleeding: Code(s): K64.8 - Other hemorrhoids Status: Acute Assessment and Plan: F/U in 3 weeks in the office. (2) Anemia: Code(s): D64.9 - Anemia, unspecified Status: Acute Assessment and Plan: F/U as out patient with nephrology and Transplant service. Additional Plan Okay from the surgical point of view for patient uto be discharged. Would recommend had held shower to the external anal area twice a day. Will follow up with the patient in the office in 3 weeks for repeat anoscopy possible further rubber-band ligation of internal hemorrhoids. Patient should contact the office if he has further bleeding that is more serious. Occasional small amounts of blood are expected. Time Spent With Patient Time with patient: less than 15 minutes Subjective Subjective Date/Time Seen: 07/22/19 09:17 Post Op day: 1 ( No serious bleeding from the rectum) Patient reports: tolerating a regular diet and bowel movement Interval history: Patient is sitting up in bed. He is eating breakfast. He states that he felt that he needed to have a small bowel movement this morning when he urinated. There was a low mucousy bloody fluid that came out. No bright red bleeding or continuing bleeding after the hemorrhoid ligation yesterday afternoon. Review of Systems Constitutional: Constitutional: Reports no additional constitutional complaints ENT: Reports other (Mucous Membranes moist.) Cardiovascular: Cardiovascular: Denies dyspnea Respiratory: Respiratory: Denies pain on inspiration and Denies dyspnea Gastrointestinal: Comments: Now continuing bleeding per rectum. Pain well controlled with Tylenol. Musculoskeletal: Musculoskeletal: Reports other (No calf swelling or edema) Integumentary/Breasts: Skin/Breast: Reports system reviewed and no additional complaints, except as docu Exam Const: General: cooperative, no acute distress, alert and awake Orientation/consciousness: patient oriented x3 HENMT: Mouth: Yes moist mucous membranes Neck: Neck: normal visual inspection Chest: Chest palpation & inspection: normal inspection of the chest Resp: Effort & Inspection: normal respiratory effort Auscultation: clear to auscultation bilaterally Cardio: Jugular venous distension: no JVD Rate: regular rate Rhythm: regular rhythm GI: GI Palp: No abdominal tenderness Auscultation: normal bowel sounds Rectal Exam: deferred Neuro: General: patient oriented x3 and moves all extremities Speech: normal speech Extrem: General: normal exam except as noted Psych: Mental Status: mental status grossly normal Speech and movement: Normal speech and movement present Affect: normal affect Thought content: Yes Normal thought content present Objective Data Vital Signs Vital Signs: Vital Signs - 24 hr 07/21/19 12:44 07/21/19 14:00 07/21/19 16:00 Temperature 36.6 C Pulse Rate 63 70 69 Respiratory Rate 16 Blood Pressure 136/65 Pulse Oximetry 100 07/21/19 20:00 07/21/19 20:45 07/21/19 22:00 Temperature 36.8 C Pulse Rate 78 78 60 Respiratory Rate 16 16 Blood Pressure 139/60 Pulse Oximetry 100 99 07/22/19 00:00 07/22/19 04:00 07/22/19 06:00 Temperature 36.6 C Pulse Rate 63 61 68 Respiratory Rate 16 Blood Pressure 158/64 H Pulse Oximetry 97 07/22/19 07:49 07/22/19 08:00 Temperature Pulse Rate 68 78 Respiratory Rate Blood Pressure Pulse Oximetry Intake/Output Intake/Output: Intake & Output 07/19/19 07/20/19 07/21/19 07/22/19 23:59 23:59 23:59 23:59 Intake Total 850 3960 300 Output Total 1600 500 200 Balance -750 3460 100 Meds/Results Medications: Active Medications Generic Name Dose Route Start Last Admin Trade Name Freq PRN Reason Stop Dose Admin Acetaminophen 500 mg 07/20/19 20:26 07/22/19 07:53 Tylenol Tablet PO 500 mg Q6H PRN Administration
--- NOTE | 2019-07-22 09:56 | P.PNNP_ITS ---
Progress Note: A&P Assessment and Plan (1) Renal transplant failure and rejection: Code(s): T86.12 - Kidney transplant failure; T86.11 - Kidney transplant rejection Status: Acute Assessment and Plan: * [place] transplant attempting to salvage kidney * however, dialysis dependent at this time * continue transplant medications as outlined * HD today and continue M/W/F schedule * electrolytes, volume status, and clearance acceptable (2) Rectal bleeding: Code(s): K62.5 - Hemorrhage of anus and rectum Status: Acute Assessment and Plan: * s/p EGD and colonoscopy with results noted * s/p noscopy with rubber-band ligation of internal hemorrhoids * continue supportive therapy (3) Anemia: Code(s): D64.9 - Anemia, unspecified Status: Acute Assessment and Plan: * likely a combination of renal failure, chronic disease, and #2 * s/p PRBC transfusion on this admission * high dose Epogen with HD * follow trend of H/H (4) Hypertension: Qualifiers: Hypertension type: essential hypertension Qualified Code(s): I10 - Essential (primary) hypertension Code(s): I10 - Essential (primary) hypertension Status: Acute Assessment and Plan: * elevated at this time * follow trend following dialysis * previous readings with in range (5) Pancytopenia: Code(s): D61.818 - Other pancytopenia Status: Acute Assessment and Plan: * presumably secondary to immunosuppressant medications * noted discussion with Transplant physician at [facility] Will continue to follow. Subjective Date/time seen: 07/22/19 09:56 Tolerating dialysis at the time of my visit (seen on HD at ~ 9:45AM); no apparent distress voiced; s/p EGD and colonoscopy as well as anoscopy with rubber-band ligation of internal hemorrhoids yesterday and tolerated these procedure reasonably well. Exam Narrative: Exam Narrative: General: WD/WN male in NAD Heart: normal S1 and S2; no rub Lungs: clear to auscultation Abdomen: soft, nontender, nondistended, positive bowel sounds Extremities: no cyanosis or clubbing; no edema Skin: warm and dry Objective Data Vital Signs Vital Signs: Vital Signs Temp Pulse Resp BP Pulse Ox 07/22/19 09:45 58 L 135/71 07/22/19 09:30 55 L 143/65 H 07/22/19 09:20 59 L 139/68 07/22/19 09:10 36.6 C 63 16 143/70 H 07/22/19 08:00 78 07/22/19 07:49 68 07/22/19 06:00 36.6 C 68 16 158/64 H 97 07/22/19 04:00 61 07/22/19 00:00 63 07/21/19 22:00 36.8 C 60 16 139/60 99 07/21/19 20:45 78 07/21/19 20:00 78 16 100 07/21/19 16:00 69 07/21/19 14:00 36.6 C 70 16 136/65 100 07/21/19 12:44 63 Intake/Output Intake/Output: Intake & Output 07/19/19 07/20/19 07/21/19 07/22/19 23:59 23:59 23:59 23:59 Intake Total 850 3960 540 Output Total 1600 500 200 Balance -750 3460 340 Meds/Results Medications: Active Medications Generic Name Dose Route Start Last Admin Trade Name Freq PRN Reason Stop Dose Admin Acetaminophen 500 mg 07/20/19 20:26 07/22/19 07:53 Tylenol Tablet PO 500 mg Q6H PRN Administration Mild Pain (Scale Score 1-4)
--- NOTE | 2019-07-22 09:56 | PM.PNNEP ---
Progress Note: A&P Assessment and Plan (1) Renal transplant failure and rejection: Code(s): T86.12 - Kidney transplant failure; T86.11 - Kidney transplant rejection Status: Acute Assessment and Plan: [place] transplant attempting to salvage kidney however, dialysis dependent at this time continue transplant medications as outlined HD today and continue M/W/F schedule electrolytes, volume status, and clearance acceptable (2) Rectal bleeding: Code(s): K62.5 - Hemorrhage of anus and rectum Status: Acute Assessment and Plan: s/p EGD and colonoscopy with results noted s/p noscopy with rubber-band ligation of internal hemorrhoids continue supportive therapy (3) Anemia: Code(s): D64.9 - Anemia, unspecified Status: Acute Assessment and Plan: likely a combination of renal failure, chronic disease, and #2 s/p PRBC transfusion on this admission high dose Epogen with HD follow trend of H/H (4) Hypertension: Qualifiers: Hypertension type: essential hypertension Qualified Code(s): I10 - Essential (primary) hypertension Code(s): I10 - Essential (primary) hypertension Status: Acute Assessment and Plan: elevated at this time follow trend following dialysis previous readings with in range (5) Pancytopenia: Code(s): D61.818 - Other pancytopenia Status: Acute Assessment and Plan: presumably secondary to immunosuppressant medications noted discussion with Transplant physician at [facility] Will continue to follow. Subjective Date/time seen: 07/22/19 09:56 Tolerating dialysis at the time of my visit (seen on HD at ~ 9:45AM); no apparent distress voiced; s/p EGD and colonoscopy as well as anoscopy with rubber-band ligation of internal hemorrhoids yesterday and tolerated these procedure reasonably well. Exam Narrative: Exam Narrative: General: WD/WN male in NAD Heart: normal S1 and S2; no rub Lungs: clear to auscultation Abdomen: soft, nontender, nondistended, positive bowel sounds Extremities: no cyanosis or clubbing; no edema Skin: warm and dry Objective Data Vital Signs Vital Signs: Vital Signs Temp Pulse Resp BP Pulse Ox 07/22/19 09:45 58 L 135/71 07/22/19 09:30 55 L 143/65 H 07/22/19 09:20 59 L 139/68 07/22/19 09:10 36.6 C 63 16 143/70 H 07/22/19 08:00 78 07/22/19 07:49 68 07/22/19 06:00 36.6 C 68 16 158/64 H 97 07/22/19 04:00 61 07/22/19 00:00 63 07/21/19 22:00 36.8 C 60 16 139/60 99 07/21/19 20:45 78 07/21/19 20:00 78 16 100 07/21/19 16:00 69 07/21/19 14:00 36.6 C 70 16 136/65 100 07/21/19 12:44 63 Intake/Output Intake/Output: Intake & Output 07/19/19 07/20/19 07/21/19 07/22/19 23:59 23:59 23:59 23:59 Intake Total 850 3960 540 Output Total 1600 500 200 Balance -750 3460 340 Meds/Results Medications: Active Medications Generic Name Dose Route Start Last Admin Trade Name Freq PRN Reason Stop Dose Admin Acetaminophen 500 mg 07/20/19 20:26 07/22/19 07:53 Tylenol Tablet PO 500 mg Q6H PRN Administration Mild Pain (Scale Score 1-4) Atorvastatin Calcium 10 mg 07/21/19 09:00 07/22/19 07:49 Lipitor PO 10 mg DAILY JESSA Administration Bupropion HCl 150 mg 07/20/19 21:00 07/22/19 07:48 Wellbutrin-Sr (12 Hr) PO 150 mg Q12HR JESSA Administration Calcium Polycarbophil 1,250 mg 07/21/19 09:00 07/22/19 07:50 Fiber Con PO 1,250 mg BID JESSA Administration Carvedilol 12.5 mg 07/20/19 21:00 07/22/19 07:49 Coreg PO 12.5 mg Q12HR JESSA Administration Epoetin Miguel 20,000 units 07/22/19 19:00 Epogen IV PUSH 07/22/19 19:01 ONCE ONE Famotidine 20 mg 07/21/19 09:00 07/22/19 07:49 Pepcid PO 20 mg DAILY JESSA Administration Furosemide 80 mg 07/21/19 09:00 07/22/19 07:50 Lasix Tablet PO 80 mg DAILY JESSA Administ
[2019-07-22] MEDS: EPOETIN ALFA 20,000 UNITS/ML VIAL 20000 UNITS IV PUSH (11:15)
--- NOTE | 2019-07-22 12:40 | PC.NURSE ---
Patient returned from dialysis per bed.
[2019-07-22 12:56] LABS: Hematocrit 23.7 % (42.0-52.0); Hemoglobin 7.9 g/dL (14.0-18.0)
--- NOTE | 2019-07-22 14:40 | PM.DS ---
DS: Admitting Diagnosis Admitting Diagnosis Admitting Diagnosis: Kidney transplant failure DS: Discharge Diagnosis Discharge Diagnosis (1) Hemorrhoids, internal, with bleeding: Code(s): K64.8 - Other hemorrhoids Status: Acute (2) Acute on chronic anemia: Code(s): D64.9 - Anemia, unspecified Status: Acute (3) End-stage renal disease on hemodialysis: Code(s): N18.6 - End stage renal disease; Z99.2 - Dependence on renal dialysis Status: Acute (4) Hypertension: Qualifiers: Hypertension type: essential hypertension Qualified Code(s): I10 - Essential (primary) hypertension Code(s): I10 - Essential (primary) hypertension Status: Acute (5) Pancytopenia: Code(s): D61.818 - Other pancytopenia Status: Acute DS: Summary Hospital Course Reason for hospitalization: Bleeding Hemorrhoids Hospital Course: Mr. Sarmiento is a 68 y.o. male with PMH significant for ESRD on HD due to transplant failure and currently on immunosuppresive therapy for transplant therapy, hemorrhoids, chronic anemia with hx of blood transfusions, hypertension, GERD, HTN, and multiple other comorbidities. He presented to the emergency department 07/20/19 due to rectal bleeding. He reported ongoing bleeding for the past 1-2 months with recent onset of large volume bleeding in the past two days prior to admission. Initial workup in the ED revealed WBC 2.900, Hb 7.6, Hct 23.7, platelet count 138, potassium 5.3, BUN 74, and Cr 7.1. Hb dropped to 6.5 and Hct 19.8 three hours later so he was transfused 1 unit pRBC. He as admitted to the hospitalist service and GI was consulted. He underwent colonosopy by Dr. Beltran today which revealed large internal hemorrhoids with bleeding stigmata which were the likely etiology for his bleeding. He also had extensive medium sized diverticula without active bleeding. EGD revealed a hiatal hernia but was otherwise unremarkable. He was advised to begin a high fiber diet and continue his fiber supplement. He was seen by general surgery and underwent rubber-band ligation of his internal hemorrhoids. He was advised to continue his bowel regimen to prevent constipation. He was noted to have pancytopenia. I spoke with Dr. Webb, one of the renal transplant specialists, who advised that I check CMV DNA PCR and BK DNA PCR and call their team with the results once available. She discussed this is likely due to medications given for his renal transplant/anti-rejection regimen. She advised that he was fine to discharge but will need close outpatient follow-up with the transplant team in 1 week. He will also need repeat labs on Monday 07/24. Status at Discharge Functional status at discharge: independent ambulation Overall status at discharge: patient is back to baseline Time Spent with Patient Time attestation: Total time spent providing and/or coordinating discharge services: 45 minutes Exam Narrative: Exam Narrative: General: Well-developed and well-nourished 68 y.o. male sitting in the Gipson's position in bed in no acute distress. HEENT: Normocephalic and atraumatic. EOMI. Mucous membranes moist. Neck: Supple without lymphadenopathy or masses. Cardiac: Regular rate and rhythm. S1 and S2 normal. 2/6 systolic murmur at the LSB. Lungs: Lungs are clear to auscultation bilaterally. Abdomen: Bowel sounds normoactive. Abdomen is soft, non-distended, and non-tender. Extremities: LUE radiocephalic fistula with palpable thrill and audible bruit. No edema to the lower extremities bilaterally. Arianna negative. Neurological: Alert. Exam is non-focal. Speech is clear. Skin: Warm and dry. Psychiatric: Judgment and insight intact. Mood pleasant and affect normal. DS: Data Data Completed and Pending Labs on day of discharge: Labs from last 24 hours 07/22/19 07/22/19 07/22/19 12:50 05:11 05:11 WBC 1.5 L* RBC 2.25 L Hgb 7.9 L 7.2 L Hct 23.7 L 21.8 L MCV 9
[2019-07-27 10:48] LABS: CMV DNA Quant PCR IU/mL <200 IU/mL (<200); Cytomegalovirus DNA Quant PCR <2.30 log IU/mL (<2.30); Cytomegalovirus DNA Source Serum
[2019-07-28 15:18] LABS: BK Virus Specimen Source Plasma
== END 2019-07-22 15:09 | disposition home or self-care (01) | DRG 347 ==
LOC: ANHED 11:04 → ANH2MED 12:02
PROVIDERS: Internal Medicine Gastroenterology; Internal Medicine Nephrology; Physician Assistant; Surgery; Admitting Provider Family Medicine; Emergency Provider Emergency Medicine; PCP Internal Medicine; Visit Provider Hospitalist
PROC: 0DJ08ZZ Inspection of Upper Intestinal Tract, Via Natural or Artificial Opening Endoscopic (ICD-10-PCS; CPT 43235; principal; 2019-07-21 08:00)
DX: K64.8 Other hemorrhoids (principal); N18.6 End stage renal disease; D61.818 Other pancytopenia; T86.11 Kidney transplant rejection; T86.12 Kidney transplant failure; I12.0 Hypertensive chronic kidney disease with stage 5 chronic kidney disease or end stage renal disease; D62 Acute posthemorrhagic anemia; D63.1 Anemia in chronic kidney disease; K59.04 Chronic idiopathic constipation; K64.4 Residual hemorrhoidal skin tags; K57.30 Diverticulosis of large intestine without perforation or abscess without bleeding; N40.0 Benign prostatic hyperplasia without lower urinary tract symptoms; K21.9 Gastro-esophageal reflux disease without esophagitis; K44.9 Diaphragmatic hernia without obstruction or gangrene; E78.5 Hyperlipidemia, unspecified; Z86.73 Personal history of transient ischemic attack (TIA), and cerebral infarction without residual deficits; Z86.010 Personal history of colon polyps; Z99.2 Dependence on renal dialysis; Z85.820 Personal history of malignant melanoma of skin; Z86.711 Personal history of pulmonary embolism; Z79.899 Other long term (current) drug therapy
CPT/HCPCS: 36415; 36430; 80048; 82607; 82728; 82746; 83540; 83550; 85014; 85018; 85025; 85610; 85730; 86850; 86900; 86901; 86923; 87497; 87799; 96361; 96374; 99285; A9270; G0257; G0378; J2704; J7030; J7040; J7512; P9016; Q4081

== ENCOUNTER 2019-07-26 15:28 | Outpatient (CLI) | payer MEDICARE, OTHER, SELFPAY ==
[2019-07-26 16:18] LABS: Hematocrit 24.9 % (42.0-52.0); Hemoglobin 7.9 g/dL (14.0-18.0); Mean Corpuscular HGB Conc 31.7 g/dl (32-36); Mean Corpuscular Hemoglobin 32.4 pg (26-34); Mean Platelet Volume 10.3 fl (7.4-10.4); Platelet Count Result 130 k/mm3 (150-375); Red Blood Count 2.44 M/mm3 (4.6-6.20); Red Cell Distribution Width 17.3 % (11.5-14.5); White Blood Count 2.6 K/mm3 (4.5-10.0)
== END 2019-07-26 15:29 | disposition home or self-care (01) ==
PROVIDERS: Visit Provider Physician Assistant
DX: K92.2 Gastrointestinal hemorrhage, unspecified (principal); D64.9 Anemia, unspecified; N18.6 End stage renal disease; Z99.2 Dependence on renal dialysis
CPT/HCPCS: 36415; 85027

== ENCOUNTER 2019-08-18 10:37 | Outpatient (CLI) | payer MEDICARE, OTHER, SELFPAY ==
--- NOTE | ~2019-08-18 | XR_ITS ---
EXAMINATION: XR chest 2V DATE: 08/18/2019 11:01 INDICATION: Shortness of breath. TECHNIQUE: Frontal and lateral views of the chest were obtained. COMPARISON: Chest 2 views 03/26/2018 FINDINGS: There are small pleural effusions. There is a diffuse interstitial pattern, consistent with mild pulmonary edema. There are airspace opacities at the lung bases, likely atelectasis. There is m ild scarring at the lung apices. No pneumothorax. Cardiomegaly is noted. There is a moderate-sized hi atal hernia. There are suture anchors in right humeral head. IMPRESSION: 1. Mild pulmonary edema with small pleural effusions. 2. Cardiomegaly. 3. Moderate-sized hiatal hernia. Reviewed, dictated and finalized at location A.
== END 2019-08-18 10:38 | disposition home or self-care (01) ==
LOC: ANHIMG 10:44
PROVIDERS: Visit Provider Internal Medicine Nephrology
DX: R06.02 Shortness of breath (principal); K44.9 Diaphragmatic hernia without obstruction or gangrene; J81.1 Chronic pulmonary edema; I51.7 Cardiomegaly
CPT/HCPCS: 71046

== ENCOUNTER 2020-02-03 08:21 | Outpatient (NON) | payer MEDICARE, OTHER, SELFPAY ==
[2020-02-04 00:20] LABS: SARS-CoV-2 RNA PCR Negative
== END 2020-02-03 08:22 ==
PROVIDERS: Visit Provider Nurse Practitioner
DX: R68.89 Other general symptoms and signs (principal); Z20.828 Contact with and (suspected) exposure to other viral communicable diseases
CPT/HCPCS: 87635; C9803; U0003

== ENCOUNTER 2020-02-21 14:08 | Outpatient (CLI) | payer MEDICARE, OTHER, SELFPAY ==
--- NOTE | ~2020-02-21 | XR_ITS ---
EXAMINATION: XR chest 2V EXAM DATE: 02/21/2020 14:22 INDICATION: R06.02 - Shortness of breath. TECHNIQUE: Frontal and lateral projections of the chest obtained and reviewed. Comparison is made to prior examination from 08/18/2019. FINDINGS: Mild cardiomegaly. There is moderate sliding gastroesophageal hiatal hernia. Some biapical scarring. Near resolution of previously seen right pleural effusion. No acute airspace disease or pn eumothorax. There are mild bony degenerative changes. Right-sided rotator cuff repair anchors. Lumbar scoliosis. IMPRESSION: 1. No acute cardiopulmonary findings. 2. Moderate hiatal hernia. 3. Mild cardiomegaly. Reviewed, dictated and finalized at location B. 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
== END 2020-02-21 14:09 | disposition home or self-care (01) ==
PROVIDERS: Visit Provider Nurse Practitioner
DX: R06.02 Shortness of breath (principal); K44.9 Diaphragmatic hernia without obstruction or gangrene; I51.7 Cardiomegaly
CPT/HCPCS: 71046

== ENCOUNTER 2020-04-16 11:49 | Outpatient (CLI) | payer MEDICARE, OTHER, SELFPAY ==
--- NOTE | ~2020-04-16 | XR_ITS ---
XR chest 2V DATE: 04/16/2020 12:13 INDICATION: Pneumonia TECHNIQUE: PA and lateral views COMPARISON: 02/21/2020 PA and lateral chest FINDINGS: Cardiomegaly. Aortic calcification and mild tortuosity. Small pleural effusions and mild prominence of the fissures suggesting mild congestive change. No pul monary infiltrate or consolidation. No pneumothorax. Moderately large hiatal hernia. Diffuse osteopenia. Bilateral chronic rotator cuff atrophy. Scoliosis and degenerative change of the thoracolumbar spine. IMPRESSION: Cardiomegaly and mild congestive changes Hiatal hernia Reviewed, dictated and finalized at location B. NG ANALYST
== END 2020-04-16 11:50 | disposition home or self-care (01) ==
LOC: ANHIMG 12:00
PROVIDERS: Visit Provider Internal Medicine Nephrology
DX: N18.6 End stage renal disease (principal); R06.02 Shortness of breath; R09.89 Other specified symptoms and signs involving the circulatory and respiratory systems; K44.9 Diaphragmatic hernia without obstruction or gangrene
CPT/HCPCS: 71046

== ENCOUNTER 2020-04-16 16:41 | Inpatient (IN) | payer MEDICARE, OTHER, SELFPAY ==
--- NOTE | ~2020-04-16 | CT_ITS ---
EXAMINATION: CT diagnostic chest wo con EXAM DATE: 04/24/2020 11:59 INDICATION: pneumonia v chf pattern . TECHNIQUE: Spiral CT of the chest without contrast. Axial, coronal and sagittal images were reviewe d. Coronal maximum intensity pixel images of chest reviewed. The dose-length product (DLP) for this examination was 145.21 mGy-cm. The exposure was tailored according to patient size (auto mA exposur e control), and iterative reconstruction (ASIR) was used as additional dose reduction technique. The re is no prior study for comparison. FINDINGS: There is large gastroesophageal hiatal hernia. Moderate pericardial effusion and small pleu ral effusions. There is moderate hyperinflation and mild emphysema. There is cardiomegaly, in particu lar left ventricular enlargement. Dense coronary artery calcifications and/or stents. Regions of inte rlobular septal thickening and scattered groundglass opacities without confluent consolidation. No pn eumothorax. There are no osteoblastic or osteolytic lesions identified. Several mild chronic appearin g thoracolumbar compression fractures. Bilateral renal atrophy. IMPRESSION: 1. Findings consistent with mild CHF exacerbation. Infection not excludable. 2. Moderate pericardial effusion. 3. Emphysema and hyperinflation. 4. Large hiatal hernia. Reviewed, dictated and finalized at location B. INE ASSISTANT
--- NOTE | ~2020-04-16 | XR_ITS ---
EXAMINATION: XR chest 1V portable EXAM DATE: 04/23/2020 12:45 INDICATION: CHF -- post-HD (getting dialysis this AM) . TECHNIQUE: Portable AP frontal chest x-ray was obtained. Comparison is made to prior examination from 04/21/2020, . FINDINGS: Moderate amount of ill-defined bilateral airspace disease, abnormal reticulation, appearanc e most consistent with pulmonary edema. Infection not excludable. There is cardiomegaly and pulmonary vascular congestion. No pneumothorax or pleural effusion. Right-sided rotator cuff repair anchors. P ossible gastric banding device. Amount of opacification appears more pronounced than prior study, however there is difference in tech nique which could account for at least some of it. IMPRESSION: Findings consistent with CHF exacerbation, stable or with mild progression. Pneumonia no t excludable. Reviewed, dictated and finalized at location B. ING HOUSE WORKER IMPRESSION: Findings consistent with CHF exacerbation, stable or with mild pro gression. Pneumonia not excludable.
--- NOTE | ~2020-04-16 | XR_ITS ---
EXAMINATION: XR chest 2V EXAM DATE: 04/19/2020 18:39 INDICATION: Cough . TECHNIQUE: Frontal and lateral projections of the chest obtained and reviewed. Comparison is made to prior examination from 04/16/2020. FINDINGS: Moderate to large gastroesophageal hiatal hernia, with barium from the modified performed earlier same date. There is mild cardiomegaly. Development of patchy bilateral perihilar edema or pneumonia, please clin ically correlate. There is no pneumothorax suspected. There are no pleural effusions. Right humeral r otator cuff repair anchors. IMPRESSION: Development of moderate amount of bilateral perihilar distribution edema and/or infection . Reviewed, dictated and finalized at location A. POURER IMPRESSION: Development of moderate amount of bilateral perihilar distribution edema and/or infection.
--- NOTE | ~2020-04-16 | XR_ITS ---
EXAMINATION: XR chest 1V portable INDICATION: Fluid overload TECHNIQUE: Portable AP chest at 1304 hours COMPARISON: 04/19/2020 FINDINGS: Cardiomegaly is noted. There is a small amount of persistent enteric contrast in a hiatal h ernia from recent modified esophagram. Patchy perihilar opacities persist without significant change. There is also airspace opacity of the right lung base. No pleural effusion or pneumothorax is identi fied. Surgical changes are noted in the right humeral head. IMPRESSION: 1. Persistent perihilar opacities without significant change, likely pulmonary edema. 2. Right basilar opacity, consistent with atelectasis versus pneumonia. Reviewed, dictated and finalized at location A. ING DOCK HAND
--- NOTE | ~2020-04-16 | XR_ITS ---
EXAMINATION: XR barium swallow modified DATE: 04/19/2020 15:32 INDICATION: Coughing, dysphagia TECHNIQUE: Modified barium esophagram was performed by myself to administered fluoroscopy, in conjun ction with speech pathologist who administered barium in varying consistencies as per speech patholog ist documentation. This was recorded on tape. A single fluoroscopic spot image was recorded. The DAP for this procedure was 1.92 Gycm2. Fluoroscopy exposure time was 2.9 minutes. FINDINGS: Oral stage: Adequate function. Pharyngeal phase: Adequate function. Laryngeal penetration: Trace within liquids. Aspiration: None. Laryngeal sensitivity: Present. IMPRESSION: Trace laryngeal penetration with thin liquids. Please refer to speech pathologist finding s and specific feeding recommendations. Reviewed, dictated and finalized at location A. RVISOR DYER IMPRESSION: Trace laryngeal penetration with thin liquids. Please refer to vijay roland pathologist findings and specific feeding recommendations.
--- NOTE | ~2020-04-16 | XR_ITS ---
EXAMINATION: XR chest 1V INDICATION: Cough and shortness of breath TECHNIQUE: Frontal view of the chest is obtained. COMPARISON: 04/20/2020 FINDINGS: There is stable cardiomegaly. Previously described perihilar and bibasilar opacities persis t but have improved. There is no pleural effusion or pneumothorax. Surgical changes are noted in the right shoulder. Small amount of enteric contrast material from recent modified esophagram is noted in the left upper quadrant. A moderate-sized hiatal hernia is again noted. IMPRESSION: 1. Persistent but improved perihilar and bibasilar opacities, consistent with pulmonary edema and/or atelectasis/or pneumonia. 2. Cardiomegaly. Reviewed, dictated and finalized at location A. E PLUG CUTTER OPERATOR HELPER IMPRESSION: 1. Persistent but improved perihilar and bibasilar opacities, consistent with p ulmonary edema and/or atelectasis/or pneumonia. 2. Cardiomegaly.
--- NOTE | ~2020-04-16 | CT_ITS ---
EXAMINATION: CT brain wo con INDICATION: Altered mental status COMPARISON: 12/30/2007 TECHNIQUE: Standard unenhanced head CT. The dose-length product (DLP) was 605.33 mGy-cm. The mA was a djusted according to patient size. Iterative reconstruction technique was employed. FINDINGS: There is no acute intraparenchymal hemorrhage. No evidence of mass lesion. No evidence of a cute infarction. There are old lacunar infarcts of the right basal ganglia. There is mild periventric ular and subcortical hypodensity probably related to small vessel ischemic disease. There is mild pro minence of the sulci and ventricles related to cerebral atrophy. Intracranial calcified cerebral athe rosclerosis is noted. There are no extra-axial collections. There is no mass effect or midline shift. Changes in the globes are likely from ocular lens surgery. The visualized sinuses and mastoid air c ells are well aerated. IMPRESSION: 1. No acute intracranial abnormality. 2. Age related findings. Reviewed, dictated and finalized at location A. OGRAPHER APPRENTICE
[2020-04-16 16:47] VITALS: BP 151/62; PULSE 74; RESP 16; TEMP 37.2; O2SAT 99
--- NOTE | 2020-04-16 16:56 | ECG_ITS ---
Measurements Intervals Damon Rate: 77 P: 63 AL: 130 QRS: 54 QRSD: 97 T: 104 QT: 374 QTc: 425 Interpretive Statements SINUS RHYTHM FREQUENT ATRIAL PREMATURE COMPLEXES LEFT VENTRICULAR HYPERTROPHY AND ST-T CHANGE BORDERLINE ST-T WAVE ABNORMALITY- INF/LAT LEADS MINIMAL Q WAVES- LATERAL LEADS BASELINE ARTIFACT- I, II, III, AVR, AVL, AVF, V5 BORDERLINE ECG Electronically Signed On 04-16-2020 19:03:47 DISCOTHEQUE DANCER by Onofre Aly D.O.
[2020-04-16 17:12] LABS: Basophils Percent Auto 0.3 % (0.2-1.2); Eosinophils Absolute Auto 0.3 K/mm3 (0-0.3); Eosinophils Percent Auto 4.2 % (0-4.4); Hematocrit 30.5 % (42.0-52.0); Hemoglobin 9.9 g/dL (14.0-18.0); Immature Granulocyte Absolute 0.02 K/mm3 (0.00-0.031); Immature Granulocyte Percent A 0.3 % (0-0.5); Lymphocytes Absolute Auto 0.92 K/mm3 (0.9-3.2); Lymphocytes Percent Auto 14.4 % (18.3-44.2); Mean Corpuscular HGB Conc 32.5 g/dl (32-36); Mean Corpuscular Hemoglobin 33.6 pg (26-34); Mean Corpuscular Volume 103.4 fl (80-100); Mean Platelet Volume 9.8 fl (7.4-10.4); Monocytes Absolute Auto 0.5 K/mm3 (0.1-0.6); Neutrophils Absolute Auto 4.7 K/mm3 (1.3-6.7); Neutrophils Percent Auto 73.8 % (45.5-73.1); Platelet Count Result 185 k/mm3 (150-375); Red Blood Count 2.95 M/mm3 (4.6-6.20); Red Cell Distribution Width 14.2 % (11.5-14.5); White Blood Count 6.4 K/mm3 (4.5-10.0)
[2020-04-16 17:24] LABS: Alanine Aminotransferase 6 U/L (4-50); Albumin Level 3.3 g/dL (3.5-5.1); Alkaline Phosphatase 83 U/L (38-126); Anion Gap 7 mmol/L (8-16); Aspartate Amino Transferase 33 U/L (17-59); Bilirubin,Total 0.9 mg/dL (0.2-1.3); Blood Urea Nitrogen 36 mg/dL (9-20); Calcium 8.8 mg/dL (8.4-10.2); Carbon Dioxide 30 mmol/L (22-30); Chloride 99 mmol/L (98-107); Estimated CRCL calculation 12 ml/min; Estimated Glomerular Filt Rate 13; Glucose 99 mg/dL (75-110); Potassium 4.7 mmol/L (3.4-5.0); Sodium 136 mmol/L (137-145)
[2020-04-16 18:01] VITALS: BP 156/76; PULSE 76; PULSE 77; RESP 23; O2SAT 97
--- NOTE | 2020-04-16 18:02 | PC.NURSE ---
Pt states he will attempt to provide urine sample, urinal given at this time. Instructed to use call light when sample is available.
--- NOTE | 2020-04-16 18:04 | ED.WEAKNESS ---
HPI - Weakness General Chief complaint: Weakness Stated complaint: generalized weakness after dialysis Time Seen by Provider: 04/16/20 17:39 Source: patient and family Mode of arrival: ambulatory Limitations: clinical condition History of Present Illness HPI Narrative: 69-year-old male Hemodialysis patient, failed kidney transplant Complains of a mild dry cough, some shortness of breath, and general weakness He had dialysis done today but this did not alleviate his symptoms in fact he might have felt worse after he got home Low-grade fever of 100.3 was reported but is not present now He had a chest x-ray done between dialysis and arriving to the ER which was unremarkable; apparently there was concern for decreased breath sounds on one side and possible PNA when he was examined at dialysis He has an inhaler that was prescribed for similar symptoms a couple of months ago but for whatever reason has not wanted to use it today MD Complaint: generalized weakness Location: generalized Related Data Home Medications Medication Instructions Recorded Confirmed atorvastatin 10 mg tablet 10 mg PO DAILY 02/25/19 03/15/20 acetaminophen 500 mg capsule 500 mg PO Q6H PRN 03/04/19 03/15/20 famotidine 20 mg tablet 20 mg PO DAILY 03/04/19 03/15/20 valganciclovir 450 mg tablet See Rx Instructions .ROUTE .COMPLEX 03/04/19 03/15/20 calcium polycarbophil [FiberCon] 1,250 mg PO BID 07/20/19 03/15/20 carvedilol 12.5 mg BID 07/20/19 03/15/20 cholecalciferol (vitamin D3) 50 mcg PO DAILY 07/20/19 03/15/20 furosemide [Lasix] 80 mg PO DAILY 07/20/19 03/15/20 lactulose See Rx Instructions .ROUTE .COMPLEX 07/20/19 03/15/20 polyethylene glycol 3350 [Miralax] 17 g PO DAILY PRN 07/20/19 03/15/20 sevelamer carbonate [Renvela] 800 mg TID 07/20/19 03/15/20 Allergies Allergy/AdvReac Type Severity Reaction Status Date / Time lisinopril Allergy Severe Swelling Verified 04/16/20 16:56 celecoxib AdvReac Mild back pain Verified 04/16/20 16:56 Anti-InflammatORY MEDS AdvReac Mild Other Uncoded 03/15/20 10:19 Review of Systems Review of Systems: All systems reviewed & are unremarkable except as noted in HPI and below Constitutional: Constitutional: Denies chills, Reports fatigue, Denies fever(s), Denies headache(s) and Reports weakness Eyes: Eyes: Reports no additional eye complaints and Denies change in vision ENT: Denies headache(s), Denies epistaxis, Denies nasal congestion and Denies sore throat Cardiovascular: Cardiovascular: Denies chest pain, Denies leg edema, Denies palpitations and Denies dyspnea Respiratory: Respiratory: Reports cough, Reports dyspnea and Denies wheezing Gastrointestinal: Gastrointestinal: Denies abdominal pain, Denies diarrhea, Denies nausea and Denies vomiting Genitourinary: Genitourinary: Denies hematuria, Denies dysuria and Denies urinary frequency Musculoskeletal: Musculoskeletal: Denies deformity, Denies arthralgias, Denies joint swelling, Denies muscle weakness and Denies numbness Integumentary/Breasts: Skin/Breast: Denies rash and Denies wounds Neurologic: Denies headache(s), Denies focal weakness, Denies numbness and Denies weakness Psychiatric: Psychiatric: Reports no additional psychiatric complaints Endocrine: Endocrine: Denies fatigue and Denies palpitations Hematologic/Lymphatic: Hematologic/Lymphatic: Denies easy bleeding and Denies easy bruising Allergic/Immunologic: Allergic/Immunologic: Denies wheezing PMFSH Past Medical History Medical History Anemia in chronic kidney disease With history of blood transfusion. Angioedema (~11/2015) Attributed to DARRYN-inhibitor. Benign prostatic hyperplasia Cerebrovascular accident (~2010) Without residual deficit. Chronic back pain Colon polyp (~11/2017) Colonoscopy per Dr. Beltran revealed transverse colon polyp (tubular adenoma), diverticulosis, and internal hemorrhoids. Depression End-stage renal disease on h
[2020-04-16] MEDS: ALBUTEROL SULFATE (*SP) AEROSOL 1 PUFF 4 PUFF INHALATION (18:25)
[2020-04-16 18:55] LABS: Lactic Acid Reflex 1.8 mmol/L (0.7-2.1)
[2020-04-16 19:00] VITALS: BP 158/78; PULSE 78; RESP 28; O2SAT 96
[2020-04-16 19:02] LABS: Troponin I 0.117 ng/mL (0.000-0.034)
[2020-04-16] MEDS: ASPIRIN 81 MG CHEWABLE TABLET 324 MG PO (19:53)
[2020-04-16 20:15] VITALS: BP 154/83; PULSE 75; RESP 23; O2SAT 97
[2020-04-16 20:25] LABS: Add Urine Microscopic? YES; Appearance Urine Clear (Clear); Bilirubin Urine Negative (Negative); Blood Urine Negative (Negative); Color Urine Yellow (Yellow); Glucose Urine UA Negative (Negative); Ketones Urine Negative (Negative); Leukocyte Esterase Ur Negative LEU/UL (Negative); Nitrate Urine Negative (Negative); Protein Urine 2+ mg/dL (Negative); RBC Urine 0-2 /hpf (0-2); Specific Grav Ur 1.011 (1.001-1.035); Urobilinogen Urine Negative mg/dL (<2.0); WBC Urine 0-3 /hpf
[2020-04-16 20:54] LABS: Troponin I 0.121 ng/mL (0.000-0.034)
[2020-04-16 23:43] VITALS: BP 158/77; PULSE 73; RESP 22; TEMP 36.8; O2SAT 96
[2020-04-17] VITALS (24 sets, daily range): BP systolic 128–160; BP diastolic 64–87; PULSE 62–95; RESP 18–24; TEMP 36–36.9; O2SAT 92–100; BMI 20.9; BMI 22.1
[2020-04-17 00:01] LABS: Troponin I 0.147 ng/mL (0.000-0.034)
--- NOTE | 2020-04-17 00:30 | PC.NURSE ---
This patient, Atilio Sarmiento, was admitted to IMU Room 212-01. Patient/family oriented to hospital policies and general routines including ID bracelet, bed and alarms, visiting hours, pain management, procedures, bathroom and other care routines, personal items, smoking policy, room service/diet, and visiting hours. Information on how to activate the Rapid Response Team has been discussed. Patient/Family are encouraged to report perceived risks to care and to ask questions if they do not understand what they are told or what they should do.
--- NOTE | 2020-04-17 04:32 | PM.IMHP ---
H&P: HPI History of Present Illness Date/Time: 04/17/20 04:32 Chief Complaint: Weakness Narrative: This is a 69-year-old male with known history of end-stage renal disease on dialysis Wednesdays and Fridays who presented to the [facility] for evaluation of generalized weakness and nonproductive cough after getting home today from dialysis. The patient mentions that when he got home he felt very weak and had a sporadic cough. His was very concerned and asked him to come to the hospital for evaluation. He reports he had a low-grade fever at home of 100.3 although he has not had any fever in the hospital. He denies any recent chest pain, palpitations, severe shortness of breath, wheezing, abdominal pain, dysuria, hematuria, nausea, vomiting, diarrhea, or rectal bleeding. Patient is known to make a small amount of urine every day. He does report that he has had more frequent falls lately which he attributes to generalized weakness. The patient was evaluated emergency room this evening and routine labs were obtained. the patient did not require any supplemental oxygen this evening. He was swabbed for COVID-19 in the emergency room. Chest x-ray was obtained after dialysis today as there was some concern that the patient might have had pneumonia. Chest x-ray demonstrated mild congestive changes and cardiomegaly but no acute infiltrates. Troponin was ordered and not surprisingly came back mildly elevated. We were asked to admit the patient to the hospital for observation and ER provider has consulted nephrology. On my encounter with the patient he has no complaint other than generalized weakness. the patient does tell me that last week he had an episode during dialysis where his dialysis needle was not placed in his fistula correctly and he experience and infiltration of his left forearm. Since then the swelling has gone down and he denies any discomfort, numbness, tingling, or other symptoms of his left arm or hand. Review of Systems Review of Systems: All systems reviewed & are unremarkable except as noted in HPI and below PMFSH Past Medical History Medical History Anemia in chronic kidney disease With history of blood transfusion. Angioedema (~11/2015) Attributed to DARRYN-inhibitor. Benign prostatic hyperplasia Cerebrovascular accident (~2010) Without residual deficit. Chronic back pain Colon polyp (~11/2017) Colonoscopy per Dr. Beltran revealed transverse colon polyp (tubular adenoma), diverticulosis, and internal hemorrhoids. Depression End-stage renal disease on hemodialysis Gastroesophageal reflux disease Hyperlipidemia Hypertension Melanoma in situ Physical deconditioning Pulmonary embolism Renal transplant failure and rejection (~01/2019) Surgical History Surgical History History of bilateral cataract extraction History of inguinal hernia repair History of kidney transplant History of melanoma excision Melanoma in situ excised from the face. History of repair of anterior cruciate ligament of left knee History of repair of right rotator cuff History of toe surgery Right 2nd toe surgery with hardware. Status post creation of arteriovenous fistula Left upper extremity. Family History Family History Mother Cerebrovascular accident Sibling Diabetes mellitus Hypertension Father Coronary artery disease Congestive heart disease Social History Social History Social History: The patient is and lives with his in [place]. 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 He is a lifelong nonsmoker and denies alcohol and drug abuse. He designates his , Brigid, as his surrogate decision maker and he wishes to be a full code. Smoking status: Never smoker Second hand tobacco smoke
[2020-04-17 05:49] LABS: Troponin I 0.145 ng/mL (0.000-0.034)
--- NOTE | 2020-04-17 07:48 | PM.CNNEP ---
Assessment and Plan Assessment and plan (1) End-stage renal disease on hemodialysis: Code(s): N18.6 - End stage renal disease; Z99.2 - Dependence on renal dialysis Status: Chronic Assessment and Plan: The patient has end-stage renal disease. He gets dialysis 3 times a week. He had his dialysis yesterday so was not due till tomorrow. His volume status looks okay. Electrolytes look okay. I wonder if this may have something to do with the admission rather than being fluid itself. He is not on oxygen and is feeling okay lying flat in bed so will follow this along. (2) Suspected 2019 novel coronavirus infection: Code(s): Z20.822 - Contact with and (suspected) exposure to COVID-19 Status: Acute Assessment and Plan: The patient has low-grade fever, weakness, and a cough. He was swabbed and we will see if this is positive. (3) Hypertension: Qualifiers: Hypertension type: essential hypertension Qualified Code(s): I10 - Essential (primary) hypertension Code(s): I10 - Essential (primary) hypertension Status: Chronic Assessment and Plan: His blood pressure is mildly high. He is on amlodipine And carvedilol for this. He is also on Lasix once a day. I will increase this to twice a day. (4) Generalized weakness: Code(s): R53.1 - Weakness Status: Acute Assessment and Plan: . Perhaps he has the COVID. He is also very thin and I question how well he eats. He says he has been eating okay though. On the low side. (5) Anemia: Qualifiers: Anemia type: unspecified type Qualified Code(s): D64.9 - Anemia, unspecified Code(s): D64.9 - Anemia, unspecified Status: Chronic Assessment and Plan: Hemoglobin is 9.9. We will give him EPO. (6) Elevated troponin level: Code(s): R77.8 - Other specified abnormalities of plasma proteins Status: Acute Assessment and Plan: His troponin levels are mildly elevated and fairly plateaued. Will check another level later today. (7) Hyperlipidemia: Qualifiers: Hyperlipidemia type: unspecified Qualified Code(s): E78.5 - Hyperlipidemia, unspecified Code(s): E78.5 - Hyperlipidemia, unspecified Status: Chronic Assessment and Plan: He is on atorvastatin. (8) Migraine, unspecified, not intractable, without status migrainosus: Code(s): G43.909 - Migraine, unspecified, not intractable, without status migrainosus Status: Acute Assessment and Plan: He gets meds p.r.n.. He does not have a headache now. History of Present Illness Reason for Consult Consult date: 04/17/20 Reason for consult: end stage renal disease Chief Complaint Chief complaint: troponin leak,chronic kidney failure,pleural effus History of Present Illness Narrative: Atilio is a very pleasant 69-year-old gentleman who has multiple medical problems including end-stage renal disease on dialysis Wednesdays and Fridays, hypertension, hyperlipidemia renal osteodystrophy, anemia of chronic kidney disease, migraines, vitamin-D deficiency,, BPH, stroke, colon polyp, depression, GERD, melanoma in situ, pulmonary embolism, kidney transplant 2019 which rejected. The patient says he went to dialysis feeling fine yesterday. Yesterday after dialysis he gradually became weak. Then he developed a cough. Any ran a fever of 100.3 so came to the ER. In the ER he was evaluated. He was swabbed for COVID-19. He was admitted and is in isolation right now. Patient says he feels about the same today as he did yesterday. He denies any shortness of breath. No belly pain. No nausea vomiting diarrhea constipation. No productive cough. He does have dry cough though. No loss of taste or smell. No chest pain. He has had hypertension for a long time. This is but caused his kidney disease. He has hyperlipidemia as well and is on atorvastatin for this. He was on this befor
[2020-04-17] MEDS: carvediloL 12.5 MG TABLET BY MOUTH ×2 (09:58→20:21)
[2020-04-17] MEDS: ATORVASTATIN 10 MG TABLET PO (09:58)
[2020-04-17] MEDS: amLODIPine BESYLATE 5 MG TABLET PO (09:58)
[2020-04-17] MEDS: SEVELAMER CARBONATE 800 MG TABLET BY MOUTH ×3 (09:58→17:12)
[2020-04-17] MEDS: calcium polycarbophiL 625 MG TABLET 1250 MG PO ×2 (09:58→17:12)
[2020-04-17] MEDS: FUROSEMIDE 80 MG TABLET PO ×2 (09:58→17:12)
[2020-04-17] MEDS: CHOLECALCIFEROL 1,000 UNITS TABLET 2000 UNITS PO (09:59)
[2020-04-17] MEDS: FAMOTIDINE 20 MG TABLET PO (09:59)
[2020-04-17] MEDS: TAMSULOSIN HCL 0.4 MG CAPSULE PO ×2 (09:59→17:12)
[2020-04-17] MEDS: ENOXAPARIN 30 MG/0.3 ML SYRINGE SUB-Q (09:59)
[2020-04-17] MEDS: ALBUTEROL SULFATE (*SP) AEROSOL 1 PUFF 2 PUFF INHALATION (10:17)
[2020-04-17 12:44] LABS: Glucose Point of Care 85 (65-105)
--- NOTE | 2020-04-17 13:53 | PM.IMPN ---
Progress Note: A&P Assessment and Plan (1) Chronic kidney failure: Code(s): N18.9 - Chronic kidney disease, unspecified Status: Acute Assessment and Plan: Currently on dialysis Appreciate Nephrology note Continue dialysis treatment. (2) Generalized weakness: Code(s): R53.1 - Weakness Status: Acute Assessment and Plan: Likely secondary to chronic disease and protein calorie malnutrition Will obtain Structures Mechanic consult PT/OT Also advanced disease (3) Shortness of breath: Code(s): R06.02 - Shortness of breath Status: Acute Assessment and Plan: Re started home Albuterol Added Atrovent Continue to monitor Chest xr reviewed (4) Physical deconditioning: Code(s): R53.81 - Other malaise Status: Acute Assessment and Plan: PT/OT (5) Elevated troponin level: Code(s): R77.8 - Other specified abnormalities of plasma proteins Status: Acute Assessment and Plan: Likely due to ESRD No chest pain (6) Suspected 2019 novel coronavirus infection: Code(s): Z20.822 - Contact with and (suspected) exposure to COVID-19 Status: Acute Assessment and Plan: Awaiting test results. (7) Anemia: Code(s): D64.9 - Anemia, unspecified Status: Acute Assessment and Plan: As per Nephro Epo (8) S/P kidney transplant: Code(s): Z94.0 - Kidney transplant status Status: Acute Assessment and Plan: Failed kidney transplant Continue HD (9) Body mass index (BMI) 21.0-21.9, adult: Onset Date: 11/17/18 Code(s): Z68.21 - Body mass index [BMI] 21.0-21.9, adult Status: Acute Assessment and Plan: Likely secondary to chronic illness Structures Mechanic consult Subjective Date/time seen: 04/17/20 13:53 Patient with generalized weakness. Review of Systems Review of Systems: Narrative: Generalized weakness. Constitutional: Comments: no fevers, no rigors, no chills. Cardiovascular: Comments: sob, no leg swelling. Respiratory: Comments: dry cough. Gastrointestinal: Comments: no n/v/abdominal pain. Musculoskeletal: Comments: LUE swelling after infiltrated iv. Integumentary/Breasts: Comments: no rashes. Neurologic: Comments: no sensory motor deficit. Exam Narrative: Exam Narrative: Chronically ill looking Const: General: no acute distress, alert, awake, Physically active and ill appearing Nutritional Appearance: cachectic Orientation/consciousness: patient oriented x3 HENMT: Head: normocephalic Ears: hearing grossly normal bilaterally General nose exam: Normal external nose present Face and sinus: normal facial exam Eyes: General: appearance normal, both eyes and all related structures Pupils: Equal, round and reactive pupils present EOM: EOMs intact bilaterally Neck: Neck: no lymphadenopathy, supple and no JVD Resp: Effort & Inspection: able to speak in complete sentences and Actively coughing Auscultation: wheezes and diminished lung sounds Cardio: Jugular venous distension: no JVD Rate: regular rate Rhythm: regular rhythm GI: GI Palp: Yes Soft to palpation and Yes No hepatosplenomegaly present Skin: Rashes: no rashes Neuro: General: patient oriented x3 Cranial nerves: Yes CN's II-XII intact bilaterally and Yes Equal, round and reactive pupils present Cognition (Neuro): normal cognition Gait exam (Neuro): Normal gait present Motor exam (neuro): 5/5 motor strength present throughout Extrem: General: no pedal edema and other (LUE forearm swelling.) Objective Data Vital Signs Vital Signs: Vital Signs - 24 hr 04/16/20 16:47 04/16/20 18:01 04/16/20 19:00 Temperature 98.9 F Pulse Rate 74 77 78 Respiratory Rate 16 23 H 28 H Blood Pressure 151/62 H 156/76 H 158/78 H Pulse Oximetry 99 97 96 04/16/20 20:15 04/16/20 23:43 04/17/20 00:00 Temperature 98.3 F 96.8 F L Pulse Rate 75 73 70 Respiratory Rate 23 H 22 H 18 Blood Pressure 154/83 H 158
[2020-04-17 13:56] LABS: SARS-CoV-2 RNA PCR Negative
[2020-04-17 15:23] LABS: Troponin I 0.205 ng/mL (0.000-0.034)
[2020-04-17] MEDS: ALBUTEROL SULFATE NEB 2.5 MG/0.5 ML INH INHALATION (20:22)
[2020-04-17] MEDS: IPRATROPIUM BR 0.02% INH SOLN 0.5 MG/2.5 ML VIAL INHALATION (20:22)
[2020-04-17] MEDS: ACETAMINOPHEN 325 MG TABLET 650 MG PO (20:26)
[2020-04-18] VITALS (38 sets, daily range): BP systolic 134–154; BP diastolic 62–89; PULSE 64–78; RESP 16–21; TEMP 36–37.2; O2SAT 93–100
[2020-04-18] MEDS: ALBUTEROL SULFATE NEB 2.5 MG/0.5 ML INH INHALATION ×4 (02:09→20:23)
[2020-04-18] MEDS: IPRATROPIUM BR 0.02% INH SOLN 0.5 MG/2.5 ML VIAL INHALATION ×4 (02:09→20:22)
--- NOTE | 2020-04-18 08:25 | PC.NURSE ---
Patient to dialysis via bed. Report given to HUEY Myles.
[2020-04-18] MEDS: EPOETIN ALFA-EPBX 10,000 UNITS/ML VIAL 10000 UNITS IV PUSH (11:01)
--- NOTE | 2020-04-18 12:35 | PC.NURSE ---
Patient returned to room following dialysis. Report received from HUEY Myles.
[2020-04-18] MEDS: calcium polycarbophiL 625 MG TABLET 1250 MG PO ×2 (12:54→18:52)
[2020-04-18] MEDS: ATORVASTATIN 10 MG TABLET PO (12:54)
[2020-04-18] MEDS: TAMSULOSIN HCL 0.4 MG CAPSULE PO ×2 (12:54→18:52)
[2020-04-18] MEDS: carvediloL 12.5 MG TABLET BY MOUTH ×2 (12:54→20:59)
[2020-04-18] MEDS: amLODIPine BESYLATE 5 MG TABLET PO (12:54)
[2020-04-18] MEDS: FAMOTIDINE 20 MG TABLET PO (12:54)
[2020-04-18] MEDS: CHOLECALCIFEROL 1,000 UNITS TABLET 2000 UNITS PO (12:54)
[2020-04-18] MEDS: SEVELAMER CARBONATE 800 MG TABLET BY MOUTH ×2 (12:54→18:53)
[2020-04-18] MEDS: ENOXAPARIN 30 MG/0.3 ML SYRINGE SUB-Q (12:55)
--- NOTE | 2020-04-18 13:32 | PM.IMPN ---
Progress Note: A&P Assessment and Plan (1) Elevated troponin level: Code(s): R77.8 - Other specified abnormalities of plasma proteins Status: Acute Assessment and Plan: Patient with elevated trop levels Extensive cardiac work up in the past noted ESRD Not Left heart cath according to available records. (2) End-stage renal disease on hemodialysis: Code(s): N18.6 - End stage renal disease; Z99.2 - Dependence on renal dialysis Status: Chronic Assessment and Plan: Undergoing HD treatments Appreciate Nephrology note (3) Generalized weakness: Code(s): R53.1 - Weakness Status: Acute Assessment and Plan: Likely secondary to chronic disease course progression PT/OT (4) Chronic kidney failure: Code(s): N18.9 - Chronic kidney disease, unspecified Status: Acute Assessment and Plan: On HD (5) Physical deconditioning: Code(s): R53.81 - Other malaise Status: Acute Assessment and Plan: PT/OT (6) Renal transplant failure and rejection: Code(s): T86.12 - Kidney transplant failure; T86.11 - Kidney transplant rejection Status: Acute Assessment and Plan: Failed renal transplant On HD. (7) Body mass index (BMI) 21.0-21.9, adult: Onset Date: 11/17/18 Code(s): Z68.21 - Body mass index [BMI] 21.0-21.9, adult Status: Acute Assessment and Plan: Appreciate Boarder Machine note Nepro as recommended (8) Chronic bilateral low back pain without sciatica: Code(s): M54.5 - Low back pain; G89.29 - Other chronic pain Status: Acute Assessment and Plan: Stable (9) Suspected 2019 novel coronavirus infection: Code(s): Z20.822 - Contact with and (suspected) exposure to COVID-19 Status: Acute Assessment and Plan: Ruled out. Subjective Date/time seen: 04/18/20 13:32 Patient states that he feels well. No issues overnight. Review of Systems Review of Systems: Narrative: No new issues, poor appetite. Constitutional: Constitutional: Reports poor appetite Cardiovascular: Cardiovascular: Reports dyspnea on exertion Comments: no chest pain but sob with activity Respiratory: Comments: no cough, no sputum production. Gastrointestinal: Comments: no n/v/abdominal pain. Musculoskeletal: Comments: generalized weakness Integumentary/Breasts: Comments: no rashes Neurologic: Comments: no sensory motor deficit Exam Narrative: Exam Narrative: lying in bed undergoing dialysis Const: General: cooperative, comfortable, no acute distress, alert, awake and other (Chronically ill looking.) Nutritional Appearance: underweight HENMT: Head: normal to inspection and normocephalic Ears: hearing grossly normal bilaterally General nose exam: Normal external nose present Face and sinus: normal facial exam Eyes: General: appearance normal, both eyes and all related structures Pupils: Equal, round and reactive pupils present EOM: EOMs intact bilaterally Neck: Neck: no lymphadenopathy, supple and no JVD Resp: Effort & Inspection: able to speak in complete sentences Auscultation: clear to auscultation bilaterally Cardio: Rate: regular rate Rhythm: regular rhythm GI: GI Palp: Yes Soft to palpation and Yes No hepatosplenomegaly present Skin: Rashes: no rashes Wounds: no wounds Neuro: General: patient oriented x3 and CN's II-XI intact bilaterally Cranial nerves: Yes CN's II-XII intact bilaterally and Yes Equal, round and reactive pupils present Cognition (Neuro): normal cognition Speech: normal speech Gait exam (Neuro): Normal gait present Motor exam (neuro): 5/5 motor strength present throughout Extrem: General: no pedal edema Objective Data Vital Signs Vital Signs: Vital Signs - 24 hr 04/17/20 14:00 04/17/20 16:00 04/17/20 18:00 Temperature 97.1 F L Pulse Rate 65 68 65 Respiratory Rate 23 H Blood Pressure 142/79 H Pulse Oximetry 97 04/17/20 20
--- NOTE | 2020-04-18 13:51 | PM.PNNEP ---
Progress Note: A&P Assessment and Plan (1) End-stage renal disease on hemodialysis: Code(s): N18.6 - End stage renal disease; Z99.2 - Dependence on renal dialysis Status: Chronic Assessment and Plan: The patient has end-stage renal disease. On HD now. His volume status looks okay. Electrolytes look okay. (2) Suspected 2019 novel coronavirus infection: Code(s): Z20.822 - Contact with and (suspected) exposure to COVID-19 Status: Acute Assessment and Plan: He was swabbed and negative. (3) Hypertension: Qualifiers: Hypertension type: essential hypertension Qualified Code(s): I10 - Essential (primary) hypertension Code(s): I10 - Essential (primary) hypertension Status: Chronic Assessment and Plan: His blood pressure is mildly high. He is on amlodipine And carvedilol for this. He is also on Lasix twice a day. (4) Generalized weakness: Code(s): R53.1 - Weakness Status: Acute Assessment and Plan: improved. (5) Anemia: Qualifiers: Anemia type: unspecified type Qualified Code(s): D64.9 - Anemia, unspecified Code(s): D64.9 - Anemia, unspecified Status: Chronic Assessment and Plan: Hemoglobin is 9.9. We will give him EPO. (6) Elevated troponin level: Code(s): R77.8 - Other specified abnormalities of plasma proteins Status: Acute Assessment and Plan: His troponin levels are mildly elevated and fairly plateaued. Will check another level later today. (7) Hyperlipidemia: Qualifiers: Hyperlipidemia type: unspecified Qualified Code(s): E78.5 - Hyperlipidemia, unspecified Code(s): E78.5 - Hyperlipidemia, unspecified Status: Chronic Assessment and Plan: He is on atorvastatin. (8) Migraine, unspecified, not intractable, without status migrainosus: Code(s): G43.909 - Migraine, unspecified, not intractable, without status migrainosus Status: Acute Assessment and Plan: He gets meds p.r.n.. He does not have a headache now. Subjective Date/time seen: 04/18/20 13:51 Interval history: on hd julio it well doing well with fluid removal. seen at 9a no cp or sob. Review of Systems Cardiovascular: Cardiovascular: Reports no additional cardiovascular complaints Respiratory: Respiratory: Reports no additional respiratory complaints Gastrointestinal: Gastrointestinal: Reports no additional gastrointestinal complaints Genitourinary: Genitourinary: Reports no additional male genitourinary complaints Exam Narrative: Exam Narrative: WDWN in NAD skin no rash head ncat lungs clear cor reg no rub abd BS+ nontender and soft ext no edema. Objective Data Vital Signs Vital Signs: Vital Signs - 24 hr 04/17/20 14:00 04/17/20 16:00 04/17/20 18:00 Temperature 36.2 C L Pulse Rate 65 68 65 Respiratory Rate 23 H Blood Pressure 142/79 H Pulse Oximetry 97 04/17/20 20:00 04/17/20 20:21 04/17/20 20:22 Temperature 36.2 C L Pulse Rate 72 76 72 Respiratory Rate 20 Blood Pressure 138/64 Pulse Oximetry 96 04/17/20 20:29 04/17/20 20:33 04/17/20 22:00 Temperature Pulse Rate 72 68 73 Respiratory Rate Blood Pressure Pulse Oximetry 97 04/17/20 23:35 04/18/20 00:00 04/18/20 02:00 Temperature 36.3 C L Pulse Rate 65 64 67 Respiratory Rate 18 Blood Pressure 128/69 Pulse Oximetry 99 04/18/20 02:10 04/18/20 02:18 04/18/20 04:00 Temperature 37.2 C Pulse Rate 64 65 71 Respiratory Rate 20 Blood Pressure 148/76 H Pulse Oximetry 99 04/18/20 06:00 04/18/20 07:39 04/18/20 07:49 Temperature Pulse Rate 78 74 70 Respiratory Rate 18 18 Blood Pressure Pulse Oximetry 93 04/18/20 08:00 04/18/20 08:15 04/18/20 08:41 Temperature 36.4 C Pulse Rate 66 74 71 Respiratory Rate 18 Blood Pressure 143/70 H 141/76 H Pulse Oximetry 04/18/20 08:42
[2020-04-18 14:24] LABS: Basophils Percent Auto 0.4 % (0.2-1.2); Eosinophils Absolute Auto 0.1 K/mm3 (0-0.3); Eosinophils Percent Auto 2.6 % (0-4.4); Hematocrit 30.5 % (42.0-52.0); Immature Granulocyte Absolute 0.02 K/mm3 (0.00-0.031); Immature Granulocyte Percent A 0.4 % (0-0.5); Lymphocytes Absolute Auto 0.63 K/mm3 (0.9-3.2); Lymphocytes Percent Auto 11.7 % (18.3-44.2); Mean Corpuscular HGB Conc 32.8 g/dl (32-36); Mean Corpuscular Hemoglobin 32.7 pg (26-34); Mean Corpuscular Volume 99.7 fl (80-100); Mean Platelet Volume 9.6 fl (7.4-10.4); Monocytes Absolute Auto 0.3 K/mm3 (0.1-0.6); Monocytes Percent Auto 5.9 % (2.6-8.5); Neutrophils Absolute Auto 4.3 K/mm3 (1.3-6.7); Platelet Count Result 189 k/mm3 (150-375); Red Blood Count 3.06 M/mm3 (4.6-6.20); Red Cell Distribution Width 13.9 % (11.5-14.5); White Blood Count 5.4 K/mm3 (4.5-10.0)
[2020-04-18 14:37] LABS: Anion Gap 8 mmol/L (8-16); Blood Urea Nitrogen 27 mg/dL (9-20); Calcium 8.9 mg/dL (8.4-10.2); Carbon Dioxide 32 mmol/L (22-30); Chloride 96 mmol/L (98-107); Estimated CRCL calculation 17 ml/min; Estimated Glomerular Filt Rate 17; Glucose 118 mg/dL (75-110); Potassium 4.5 mmol/L (3.4-5.0); Sodium 136 mmol/L (137-145)
--- NOTE | 2020-04-18 15:34 | PM.CNCAR ---
Assessment and Plan Assessment and plan (1) Elevated troponin level: Code(s): R77.8 - Other specified abnormalities of plasma proteins Status: Acute Assessment and Plan: No clinical symptoms to suggest ACS. Troponin are mildly elevated and essentially flat up to .205. Obtain echo to assess for wall motion abnormality. If not wall motion abnormality, no further cardiac workup is needed. (2) Hyperlipidemia: Qualifiers: Hyperlipidemia type: unspecified Qualified Code(s): E78.5 - Hyperlipidemia, unspecified Code(s): E78.5 - Hyperlipidemia, unspecified Status: Chronic (3) Hypertension: Qualifiers: Hypertension type: essential hypertension Qualified Code(s): I10 - Essential (primary) hypertension Code(s): I10 - Essential (primary) hypertension Status: Chronic Assessment and Plan: High. On Amlodipine and Coreg. Increase Amlodipine 10 mg daily. (4) End-stage renal disease on hemodialysis: Code(s): N18.6 - End stage renal disease; Z99.2 - Dependence on renal dialysis Status: Chronic History of Present Illness History of Present Illness Consult date/time: 04/18/20 15:34 Reason for consult: Elevated troponin. 69 yr old man presented to ER with weakness and dry cough after hemodialysis several days ago. He has a history of failed kidney transplant, ESRD on HD, hypertension, dyslipidemia. He is a poor historian and he gave me his name but not place or year. Denies chest pains. I could not get any other information or history from him. I'm not sure if he has underlying dementia. Reason For Visit: troponin leak,chronic kidney failure,pleural effus Review of Systems Constitutional: Constitutional: Reports as per HPI, Denies chills, Reports fatigue and Reports fever(s) Cardiovascular: Cardiovascular: Reports as per HPI, Denies chest pain and Denies dyspnea Respiratory: Respiratory: Reports as per HPI, Reports cough and Denies dyspnea Gastrointestinal: Gastrointestinal: Reports as per HPI and Denies abdominal pain Genitourinary: Genitourinary: Reports as per HPI and Denies dysuria Musculoskeletal: Musculoskeletal: Reports as per HPI Neurologic: Reports as per HPI, Denies dizziness and Denies syncope [facility] Past Medical History Medical History Anemia in chronic kidney disease With history of blood transfusion. Angioedema (~11/2015) Attributed to DARRYN-inhibitor. Benign prostatic hyperplasia Cerebrovascular accident (~2010) Without residual deficit. Chronic back pain Colon polyp (~11/2017) Colonoscopy per Dr. Beltran revealed transverse colon polyp (tubular adenoma), diverticulosis, and internal hemorrhoids. Depression End-stage renal disease on hemodialysis Gastroesophageal reflux disease Hyperlipidemia Hypertension Melanoma in situ Physical deconditioning Pulmonary embolism Renal transplant failure and rejection (~01/2019) Surgical History Surgical History History of bilateral cataract extraction History of inguinal hernia repair History of kidney transplant History of melanoma excision Melanoma in situ excised from the face. History of repair of anterior cruciate ligament of left knee History of repair of right rotator cuff History of toe surgery Right 2nd toe surgery with hardware. Status post creation of arteriovenous fistula Left upper extremity. Family History Family History Mother Cerebrovascular accident Sibling Diabetes mellitus Hypertension Father Coronary artery disease Congestive heart disease Social History Social History Social History: The patient is and lives with his in [place]. 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 He is a lifelong nonsmoker and denies alcohol and drug ab
[2020-04-18] MEDS: ALBUTEROL SULFATE (*SP) AEROSOL 1 PUFF 2 PUFF INHALATION (16:21)
[2020-04-18] MEDS: guaiFENesin/CODEINE (*CRX) 200/20 MG 10 ML SYRUP PO ×2 (16:43→20:59)
--- NOTE | 2020-04-18 18:33 | PC.NURSE ---
This patient, Atilio Sarmiento, was transferred to [facility] on 04/18/20 at 1833. Personal belongings sent with patient. Report given to HUEY Rios. Appropriate documentation sent with patient.
--- NOTE | 2020-04-18 18:35 | PC.NURSE ---
Received from [facility] via wheelchair. at side.
[2020-04-18] MEDS: ZOLPIDEM TARTRATE (*CRX) 5 MG TABLET PO (20:58)
[2020-04-18] MEDS: FLUTICASONE PROPIONATE 0.05% NA SPR 16 GM BTL (*BKC) 2 SPRAY NASAL (20:59)
--- NOTE | 2020-04-18 22:22 | PC.NURSE ---
PT HAS PERIODS OF CONFUSION.
[2020-04-18] MEDS: ACETAMINOPHEN 325 MG TABLET 650 MG PO (22:33)
--- NOTE | 2020-04-18 23:50 | PC.NURSE ---
[id number] DR GRIDER NOTIFIED EARLIER THAT PT HAVING PERIODS OF CONFUSION AND RESTLESSNESS. DR GRIDER CAME AND EVALUATED PT. NO ORDERS RECEIVED.
[2020-04-19] VITALS (13 sets, daily range): BP systolic 128–161; BP diastolic 59–86; PULSE 62–89; RESP 18–20; TEMP 36.7–37; O2SAT 87–98
--- NOTE | 2020-04-19 | ECHO_ITS ---
Patient Info Name: Atilio Sarmiento Age: 69 years : 1950 Gender: Male Ht: 66 in Wt: 141 lbs BSA: 1.73 m2 HR: 70 bpm BP: 138 / 62 mmHg Technical Quality: Good Exam Date: 04/19/2020 11:21 AM Exam Location: [facility] Pulmonary Exam Room: 244 Patient Status: Inpatient Admit Date: 04/17/2020 Staff Ordering Physician: Onofre Aly DO [employer] Network Administrator: Caitlin Roberts RDCS Attending Provider: Shaji Chang MD Referring Physician: Jermain MEADOWS; Exam Type: CA echo doppler color flow Study Info Indications - hx/o renal tx sob elevated troponins Complete two-dimensional, color flow and Doppler transthoracic echocardiogram is performed. Summary 1. Complete two-dimensional, color flow and Doppler transthoracic echocardiogram is performed. 2. Left ventricular chamber dimension is severely enlarged. 3. Left ventricular systolic function is severely reduced, estimated at 20-25%. 4. The left ventricular diastolic function is grade I diastolic dysfunction. 5. E/e' 14 is mildly elevated. 6. Left atrial chamber dimension is severely enlarged. 7. Right atrial chamber dimension is mildly enlarged. 8. There is mild aortic valve sclerosis. 9. There is mild to moderate aortic valve regurgitation. 10. There is moderate to severe mitral valve regurgitation. 11. There is mild tricuspid valve regurgitation. 12. Mild pulmonary hypertension, estimated pulmonary arterial systolic pressure is 48 mmHg. 13. Normal inferior vena cava with <50% collapse upon inspiration consistent with elevated right atrial pressure, 10 mmHg. 14. There is small circumferential pericardial effusion. Left Ventricle E/e' 14 is mildly elevated. Left ventricular chamber dimension is severely enlarged. Left ventricular systolic function is severely reduced, estimated at 20-25%. The left ventricular diastolic function is grade I diastolic dysfunction. Right Ventricle Right ventricular chamber dimension is normal. Right ventricular systolic function is normal. Left Atria Left atrial chamber dimension is severely enlarged. Right Atria Right atrial chamber dimension is mildly enlarged. Aortic Valve The aortic valve is trileaflet. There is mild aortic valve sclerosis. There is no aortic valve stenosis. There is mild to moderate aortic valve regurgitation. Pulmonic Valve There is no pulmonic regurgitation. Mitral Valve There is no mitral valve stenosis. There is moderate to severe mitral valve regurgitation. Tricuspid Valve There is mild tricuspid valve regurgitation. Mild pulmonary hypertension, estimated pulmonary arterial systolic pressure is 48 mmHg. Pericardium/Pleural There is small circumferential pericardial effusion. Inferior Vena Cava Normal inferior vena cava with <50% collapse upon inspiration consistent with elevated right atrial pressure, 10 mmHg. Aorta The aortic root size at the sinus of Valsalva is normal. Left Ventricular Outflow Tract Name Value Normal LVOT 2D LVOT Diameter 2.0 cm LVOT Doppler LVOT Peak Gradient 8 mmHg LVOT Mean Gradient 6 mmHg
[2020-04-19] MEDS: ALBUTEROL SULFATE NEB 2.5 MG/0.5 ML INH INHALATION ×4 (01:46→21:31)
[2020-04-19] MEDS: IPRATROPIUM BR 0.02% INH SOLN 0.5 MG/2.5 ML VIAL INHALATION ×4 (01:46→21:31)
--- NOTE | 2020-04-19 03:17 | PC.NURSE ---
PT UP TO BATHROOM WITH WALKER REFUSES TO USE URINAL. VOIDED IN TOILET, STATES IM GOOD NOW.' INFORMED PT WE NEED TO MEASURE URINE IN FUTURE SO U-HAT PLACED IN TOILET. DR GRIDER ON FLOOR AND NOTIFIED.
[2020-04-19] MEDS: guaiFENesin/CODEINE (*CRX) 200/20 MG 10 ML SYRUP PO ×4 (04:57→20:47)
[2020-04-19 06:01] LABS: Albumin Level 2.9 g/dL (3.5-5.1); Anion Gap 9 mmol/L (8-16); Blood Urea Nitrogen 38 mg/dL (9-20); Calcium 9.2 mg/dL (8.4-10.2); Carbon Dioxide 29 mmol/L (22-30); Chloride 95 mmol/L (98-107); Estimated CRCL calculation 13 ml/min; Estimated Glomerular Filt Rate 13; Glucose 100 mg/dL (75-110); Potassium 4.3 mmol/L (3.4-5.0); Sodium 133 mmol/L (137-145)
[2020-04-19] MEDS: SEVELAMER CARBONATE 800 MG TABLET BY MOUTH ×3 (09:11→16:51)
[2020-04-19] MEDS: CHOLECALCIFEROL 1,000 UNITS TABLET 2000 UNITS PO (09:11)
[2020-04-19] MEDS: calcium polycarbophiL 625 MG TABLET 1250 MG PO ×2 (09:11→16:51)
[2020-04-19] MEDS: amLODIPine BESYLATE 5 MG TABLET 10 MG PO (09:12)
[2020-04-19] MEDS: ATORVASTATIN 10 MG TABLET PO (09:12)
[2020-04-19] MEDS: FUROSEMIDE 80 MG TABLET PO ×2 (09:12→16:51)
[2020-04-19] MEDS: ENOXAPARIN 30 MG/0.3 ML SYRINGE SUB-Q (09:13)
[2020-04-19] MEDS: TAMSULOSIN HCL 0.4 MG CAPSULE PO ×2 (09:13→16:52)
[2020-04-19] MEDS: FAMOTIDINE 20 MG TABLET PO (09:13)
[2020-04-19] MEDS: carvediloL 12.5 MG TABLET BY MOUTH ×2 (09:13→20:46)
--- NOTE | 2020-04-19 11:05 | PCNFU ---
Nutrition Follow-Up Complete: Suboptimal oral intake related to decreased appetite as evidenced by patient statements, intake records. Goal: Patient to consume 50% of meals and supplements or greater. Patient is progressing towards goal. We will continue current goal. Pt current nutrition is Renal Dialysis Diet. Last recorded weight is 54.7 kg, down from 62.2 kg on admit. Bowel Motility:No BM documented. Labs Reviewed:GFR 13,BUN 38,Cr 4.6,Alb 2.9,Na 133 Meds Noted:Lasix,Pepsid, Coreg, Fiber con, Norvasc, Renvela, Vit D, Flomax Additional Notes: Nutrition follow up. Spoke with nursing today, patient confused. Oral Intake: 50-100% of meals. Diet order: Renal Dialysis with Nepro BID providing an additional 425 kcals and 19 gms protein. Agree with diet orders. Monitoring: weight, labs, oral intake every 5 days.
--- NOTE | 2020-04-19 11:06 | PM.PNNEP ---
Progress Note: A&P Assessment and Plan (1) End-stage renal disease on hemodialysis: Code(s): N18.6 - End stage renal disease; Z99.2 - Dependence on renal dialysis Status: Chronic Assessment and Plan: The patient has end-stage renal disease. due for dialysis tomorrow. No swelling and lungs are clear. Potassium is fine. (2) Suspected 2019 novel coronavirus infection: Code(s): Z20.822 - Contact with and (suspected) exposure to COVID-19 Status: Acute Assessment and Plan: He was swabbed and negative. (3) Hypertension: Qualifiers: Hypertension type: essential hypertension Qualified Code(s): I10 - Essential (primary) hypertension Code(s): I10 - Essential (primary) hypertension Status: Chronic Assessment and Plan: His blood pressure is doing pretty well ranging from 130-150. He is on amlodipine And carvedilol for this. He is also on Lasix twice a day. (4) Generalized weakness: Code(s): R53.1 - Weakness Status: Acute Assessment and Plan: improved. (5) Anemia: Qualifiers: Anemia type: unspecified type Qualified Code(s): D64.9 - Anemia, unspecified Code(s): D64.9 - Anemia, unspecified Status: Chronic Assessment and Plan: Hemoglobin is 9.9. We will give him EPO. (6) Elevated troponin level: Code(s): R77.8 - Other specified abnormalities of plasma proteins Status: Acute Assessment and Plan: His troponin levels are mildly elevated and Creeping up. Dr. Aly saw the patient. (7) Hyperlipidemia: Qualifiers: Hyperlipidemia type: unspecified Qualified Code(s): E78.5 - Hyperlipidemia, unspecified Code(s): E78.5 - Hyperlipidemia, unspecified Status: Chronic Assessment and Plan: He is on atorvastatin. (8) Migraine, unspecified, not intractable, without status migrainosus: Code(s): G43.909 - Migraine, unspecified, not intractable, without status migrainosus Status: Acute Assessment and Plan: He gets meds p.r.n.. He does not have a headache now. Subjective Date/time seen: 04/19/20 11:06 Interval history: Just waking from slumber. No complaints. no cp or sob. Exam Narrative: Exam Narrative: WDWN in NAD skin no rash Or subcu nodules head ncat lungs clear bilaterally cor reg no rub abd BS+ nontender and soft ext no edema. Objective Data Vital Signs Vital Signs: Vital Signs - 24 hr 04/18/20 11:15 04/18/20 11:30 04/18/20 11:45 Temperature Pulse Rate 68 70 71 Respiratory Rate Blood Pressure 153/76 H 151/78 H 149/77 H Pulse Oximetry 04/18/20 12:00 04/18/20 12:41 04/18/20 12:45 Temperature 37.0 C Pulse Rate 75 70 Respiratory Rate 18 Blood Pressure 134/74 Pulse Oximetry 100 04/18/20 12:50 04/18/20 12:54 04/18/20 13:53 Temperature 36.0 C L Pulse Rate 70 76 73 Respiratory Rate 16 18 Blood Pressure 154/78 H Pulse Oximetry 100 96 04/18/20 14:00 04/18/20 14:03 04/18/20 16:00 Temperature Pulse Rate 68 74 72 Respiratory Rate 18 Blood Pressure Pulse Oximetry 04/18/20 16:49 04/18/20 20:23 04/18/20 20:32 Temperature 37.1 C Pulse Rate 70 75 73 Respiratory Rate 20 20 20 Blood Pressure 136/66 Pulse Oximetry 100 04/18/20 20:59 04/18/20 22:00 04/19/20 01:46 Temperature 36.9 C Pulse Rate 70 71 65 Respiratory Rate 18 18 Blood Pressure 138/62 Pulse Oximetry 96 04/19/20 01:56 04/19/20 06:00 04/19/20 08:33 Temperature 36.7 C Pulse Rate 70 67 77 Respiratory Rate 18 20 18 Blood Pressure 152/83 H Pulse Oximetry 98 91 04/19/20 08:43 Temperature Pulse Rate 89 Respiratory Rate 20 Blood Pressure Pulse Oximetry Intake/Output Intake/Output: Intake & Output 04/16/20 04/17/20 04/18/20 04/19/20 23:59 23:59 23:59 23:59 Intake Total 860 720 120 Output Total 153 876 9056 200 Balance -350 460 -1309 -80
[2020-04-19] MEDS: LACTULOSE 20 GM/30 ML UDC BY MOUTH (12:15)
--- NOTE | 2020-04-19 12:59 | PM.DS ---
DS: Summary Time Spent with Patient Time attestation: Total time spent providing and/or coordinating discharge services: DS: Data Data Completed and Pending Labs on day of discharge: Labs from last 24 hours 04/19/20 04/18/20 04/18/20 05:24 14:18 14:18 WBC 5.4 RBC 3.06 L Hgb 10.0 L Hct 30.5 L MCV 99.7 MCH 32.7 MCHC 32.8 RDW 13.9 Plt Count 189 MPV 9.6 Immature Gran % (Auto) 0.4 Neut % (Auto) 79.0 H Lymph % (Auto) 11.7 L [place] % (Auto) 5.9 Eos % (Auto) 2.6 Baso % (Auto) 0.4 Lymph # (Auto) 0.63 L [place] # (Auto) 0.3 Eos # (Auto) 0.1 Baso # (Auto) 0.0 Abs Immat Gran (auto) 0.02 Absolute Neuts (auto) 4.3 Absolute Nucleated RBC 0.0 Nucleated RBC % 0.0 Sodium 133 L 136 L Potassium 4.3 4.5 Chloride 95 L 96 L Carbon Dioxide 29 32 H Anion Gap 9 8 BUN 38 H D 27 H Creatinine 4.60 H 3.50 H Estim Creat Clear Calc 13 17 Estimated GFR 13 L 17 L Glucose 100 118 H Calcium 9.2 8.9 Phosphorus 4.0 Albumin 2.9 L Preliminary micro results at discharge 04/16/20 18:35 Blood Culture - Preliminary Blood 04/16/20 18:35 Blood Culture - Preliminary Blood Discharge Plan Discharge Attending physician on discharge: Kyrie Perales V. Consulting providers: Aaron Patrick Rafe M. Discharging Clinician: Kyrie Perales V. Patient Disposition: Home, Self-Care Activity: as tolerated Diet: renal Patient Instructions: Antibiotic Form, Chronic Kidney Disease (DC), High Troponin Levels (GEN) Stand Alone Forms: General Discharge Information Follow-up/Referrals: Dilip Torres DO [Primary Care Provider] - 2 Weeks Discharge Medications: New codeine-guaifenesin 10-100 mg/5 mL Liquid 10 ml PO Q4H PRN (Reason: Cough) 10 Days Qty: 120 RF: 0 Continued atorvastatin [Lipitor] 10 mg tablet 10 mg PO DAILY RF: 0 famotidine 20 mg tablet 20 mg PO DAILY RF: 0 acetaminophen [Mapap (acetaminophen)] 500 mg capsule 500 mg PO Q6H PRN (Reason: Mild Pain (Scale Score 1-4)) RF: 0 albuterol sulfate [ProAir HFA] 90 mcg/actuation HFA aerosol inhaler 2 puff inhalation Q4-6H PRN (Reason: shortness of breath or wheezing) Qty: 8.5 RF: 2 amlodipine 5 mg tablet 5 mg PO DAILY RF: 0 zolpidem 5 mg tablet 5 mg PO HS RF: 0 carvedilol 12.5 mg tablet 12.5 mg BID RF: 0 furosemide [Lasix] 80 mg Tablet 80 mg PO DAILY RF: 0 sevelamer carbonate [Renvela] 800 mg tablet 800 mg TID RF: 0 calcium polycarbophil [FiberCon] 625 mg Tablet 1,250 mg PO BID RF: 0 lactulose 20 gram/30 mL Solution See Rx Instructions .ROUTE .COMPLEX PRN (Reason: Constipation) RF: 0 cholecalciferol (vitamin D3) 50 mcg (2,000 unit) Tablet 50 mcg PO DAILY RF: 0 Metamucil (with sugar) 3.4 gram Powder In Packet 1 packet PO QAM 30 Days Qty: 30 RF: 0 tamsulosin 0.4 mg capsule 0.4 mg PO BID Qty: 180 RF: 0 fluticasone propionate 50 mcg/actuation spray,suspension 2 spray NASAL DAILY PRN (Reason: allergy symptoms) Qty: 47.4 RF: 1 sumatriptan succinate [Imitrex] 100 mg tablet See Rx Instructions .ROUTE .COMPLEX PRN (Reason: Migraine Headache) Qty: 9 RF: 5 bupropion HCl 150 mg tablet sustained-release 12 hr 150 mg PO BID Qty: 180 RF: 1 Date of admission: 04/17/20 14:51 Primary Care Provider: Dilip Torres Admitting Provider: Shaji Chang Attending physician on admission: Shaji Chang Condition: Stable Quality VTE Prophylaxis VTE prophylaxis: pharmacologic ordered
--- NOTE | 2020-04-19 14:06 | PM.IMPN ---
Progress Note: A&P Assessment and Plan (1) Cough: Code(s): R05 - Cough Status: Acute Assessment and Plan: Persistent Repeat chest xr reviewed More in line with fluid overload Patient with positive balance On RA No respiratory distress Continue to monitor Had discussion at length with who wishes to be transferred to [facility] where he gets all his care due to persistent cough I called [facility] on 2 different occasions and still awaiting for a call back. (2) End-stage renal disease on hemodialysis: Code(s): N18.6 - End stage renal disease; Z99.2 - Dependence on renal dialysis Status: Chronic Assessment and Plan: Undergoing HD Mo, Wd, Fr. (3) Non-ischemic cardiomyopathy: Code(s): I42.8 - Other cardiomyopathies Status: Acute Assessment and Plan: Repeat ECHO at our facility with severely reduced EF=20-25% Life vest has been ordered (4) Suspected 2019 novel coronavirus infection: Code(s): Z20.822 - Contact with and (suspected) exposure to COVID-19 Status: Acute Assessment and Plan: Ruled out. (5) Generalized weakness: Code(s): R53.1 - Weakness Status: Acute Assessment and Plan: Likely secondary to all of the above. PT/OT (6) Elevated troponin level: Code(s): R77.8 - Other specified abnormalities of plasma proteins Status: Acute Assessment and Plan: Had L and R heart cath at [facility] in January 2020 Patient goes there for all his care (7) Physical deconditioning: Code(s): R53.81 - Other malaise Status: Acute Assessment and Plan: PT/OT (8) Renal transplant failure and rejection: Code(s): T86.12 - Kidney transplant failure; T86.11 - Kidney transplant rejection Status: Acute Assessment and Plan: Plans to go back on transplant list. Subjective Date/time seen: 04/19/20 14:06 Persistent cough. Review of Systems Review of Systems: Narrative: Persistent cough. Constitutional: Comments: poor appetite Cardiovascular: Comments: no sob. Respiratory: Comments: persistent cough. Gastrointestinal: Comments: no n/v/abdomional pain. Musculoskeletal: Comments: generalized weakness. Integumentary/Breasts: Comments: no rashes. Neurologic: Comments: insomnia Exam Narrative: Exam Narrative: Lying in bed. Const: General: comfortable, no acute distress, alert, awake, Physically active and other (Chronically ill looking) Nutritional Appearance: cachectic Orientation/consciousness: patient oriented x3 and Other orientation findings (somnolent.) HENMT: Head: normocephalic Ears: hearing grossly normal bilaterally General nose exam: Normal external nose present Face and sinus: normal facial exam Eyes: General: appearance normal, both eyes and all related structures Pupils: Equal, round and reactive pupils present EOM: EOMs intact bilaterally Neck: Neck: no lymphadenopathy, supple and no JVD Resp: Effort & Inspection: normal respiratory effort and able to speak in complete sentences Auscultation: clear to auscultation bilaterally Cardio: Rate: regular rate Rhythm: regular rhythm GI: GI Palp: Yes Soft to palpation and Yes No hepatosplenomegaly present Skin: Rashes: no rashes Neuro: General: patient oriented x3 and CN's II-XI intact bilaterally Cranial nerves: Yes CN's II-XII intact bilaterally and Yes Equal, round and reactive pupils present Cognition (Neuro): normal cognition Speech: normal speech Motor exam (neuro): 5/5 motor strength present throughout Extrem: General: no pedal edema Objective Data Vital Signs Vital Signs: Vital Signs - 24 hr 04/18/20 16:00 04/18/20 16:49 04/18/20 20:23 Temperature 98.7 F Pulse Rate 72 70 75 Respiratory Rate 20 20 Blood Pressure 136/66 Pulse Oximetry 100 04/18/20 20:32 04/18/20 20:59 04/18/20 22:00 Temperature 98.4 F Pulse Rate 73 70 71 Respiratory Rate 20 18 Blood Pressure 138/62
[2020-04-19] MEDS: LOSARTAN POTASSIUM 25 MG TABLET PO (14:44)
--- NOTE | 2020-04-19 15:04 | PM.PNCARD ---
Progress Note: A&P Assessment and Plan (1) Elevated troponin level: Code(s): R77.8 - Other specified abnormalities of plasma proteins Status: Acute Assessment and Plan: No clinical symptoms to suggest ACS. Troponin are mildly elevated and essentially flat up to .205. Known cardiomyopathy with no significant CAD in Jan 2020 at [facility]. (2) Hyperlipidemia: Qualifiers: Hyperlipidemia type: unspecified Qualified Code(s): E78.5 - Hyperlipidemia, unspecified Code(s): E78.5 - Hyperlipidemia, unspecified Status: Chronic (3) Hypertension: Qualifiers: Hypertension type: essential hypertension Qualified Code(s): I10 - Essential (primary) hypertension Code(s): I10 - Essential (primary) hypertension Status: Chronic Assessment and Plan: High. On Amlodipine and Coreg. Will add Losartan 25 mg daily. (4) End-stage renal disease on hemodialysis: Code(s): N18.6 - End stage renal disease; Z99.2 - Dependence on renal dialysis Status: Chronic (5) Non-ischemic cardiomyopathy: Code(s): I42.8 - Other cardiomyopathies Status: Acute Assessment and Plan: Echo 04/19/20 shows EF 20-25%. Spoke with patient's , Brigid, who states this is not new since it was known at [facility] in Jan 2020. He had cardiac cath in Jan 2020 at [facility] which did not show significant CAD to warrant revascularization. Start Losartan 25 mg daily. Already on Coreg. Discussed Life Vest to prevent sudden cardiac arrest and she is agreeing for it. Subjective Date/time seen: 04/19/20 15:04 Patient is confused and only able to give me his name and tells me he does not have chest pain. Exam Const: General: cooperative, healthy appearing and comfortable Resp: Auscultation: clear to auscultation bilaterally, no crackles, no rales, no rhonchi and no wheezes Cardio: Jugular venous distension: no JVD Rate: regular rate Rhythm: regular rhythm Heart sounds: no murmurs Peripheral pulses: dorsalis pedis present GI: GI Palp: No abdominal tenderness and Yes Soft to palpation Neuro: General: oriented to person, No oriented to place and No oriented to time Extrem: Right lower extremity: no edema Left lower extremity: no edema Objective Data Vital Signs Vital Signs: Vital Signs - 24 hr 04/18/20 16:00 04/18/20 16:49 04/18/20 20:23 Temperature 98.7 F Pulse Rate 72 70 75 Respiratory Rate 20 20 Blood Pressure 136/66 Pulse Oximetry 100 04/18/20 20:32 04/18/20 20:59 04/18/20 22:00 Temperature 98.4 F Pulse Rate 73 70 71 Respiratory Rate 20 18 Blood Pressure 138/62 Pulse Oximetry 96 04/19/20 01:46 04/19/20 01:56 04/19/20 06:00 Temperature 98.0 F Pulse Rate 65 70 67 Respiratory Rate 18 18 20 Blood Pressure 152/83 H Pulse Oximetry 98 04/19/20 08:33 04/19/20 08:43 04/19/20 14:28 Temperature Pulse Rate 77 89 75 Respiratory Rate 18 20 18 Blood Pressure Pulse Oximetry 91 04/19/20 14:34 Temperature Pulse Rate 78 Respiratory Rate 18 Blood Pressure Pulse Oximetry Intake/Output Intake/Output: Intake & Output 04/16/20 04/17/20 04/18/20 04/19/20 23:59 23:59 23:59 23:59 Intake Total 860 720 360 Output Total 533 551 8653 200 Balance -350 460 -1309 160 Meds/Results Medications: Active Medications Generic Name Dose Route Start Last Admin Trade Name Freq PRN Reason Stop Dose Admin Acetaminophen 650 mg 04/16/20 22:00 04/18/20 22:33 Acetaminophen 325 Mg Tablet PO 650 mg Q4H PRN Administration Mild Pain (1-3) or Fever Acetaminophen 500 mg 04/17/20 04:48 Acetaminophen 500 Mg Tablet PO Q6H PRN Mild Pain (Scale Score 1-4) Albuterol 2 puff 04/17/20 04:48 04/18/20 16:21 Albuterol Sulfate (*Sp) Aerosol 1 Puff INHALATION 2 puff Q4-6H PRN Administration shortness of breath or wheezing Albuterol 2.5 mg 04/17/20 20:00 04/19/20 14:26 Albuterol Sulfate Neb 2.5 Mg/0.5 M
--- NOTE | 2020-04-19 15:46 | PCSTNOTE ---
Please refer to the Modified Barium Swallow Evaluation in the EMR.
[2020-04-19] MEDS: ZOLPIDEM TARTRATE (*CRX) 5 MG TABLET PO (20:45)
[2020-04-19] MEDS: ACETAMINOPHEN 325 MG TABLET 650 MG PO (20:46)
[2020-04-19] MEDS: FLUTICASONE PROPIONATE 0.05% NA SPR 16 GM BTL (*BKC) 2 SPRAY NASAL (20:47)
[2020-04-20] VITALS (38 sets, daily range): BP systolic 122–161; BP diastolic 58–90; PULSE 59–82; RESP 16–24; TEMP 36–38.3; O2SAT 92–100
[2020-04-20] MEDS: IPRATROPIUM BR 0.02% INH SOLN 0.5 MG/2.5 ML VIAL INHALATION ×3 (02:51→21:40)
[2020-04-20] MEDS: ALBUTEROL SULFATE NEB 2.5 MG/0.5 ML INH INHALATION ×3 (02:51→21:40)
[2020-04-20] MEDS: guaiFENesin/CODEINE (*CRX) 200/20 MG 10 ML SYRUP PO (03:12)
[2020-04-20 07:53] LABS: Hematocrit 28.1 % (42.0-52.0); Mean Corpuscular Hemoglobin 32.7 pg (26-34); Mean Corpuscular Volume 102.2 fl (80-100); Platelet Count Result 165 k/mm3 (150-375); Red Blood Count 2.75 M/mm3 (4.6-6.20); Red Cell Distribution Width 14.2 % (11.5-14.5); White Blood Count 4.9 K/mm3 (4.5-10.0)
--- NOTE | 2020-04-20 08:18 | PM.PNCARD ---
Progress Note: A&P Assessment and Plan (1) Elevated troponin level: Code(s): R77.8 - Other specified abnormalities of plasma proteins Status: Acute Assessment and Plan: No clinical symptoms to suggest ACS. Troponin are mildly elevated and essentially flat up to .205. Known cardiomyopathy with no significant CAD in Jan 2020 at [facility]; Diag shows mod with 70% ostial stenosis and otherwise 30-50% CAD stenosis in LAD, LCx, RCA territories. (2) Hyperlipidemia: Qualifiers: Hyperlipidemia type: unspecified Qualified Code(s): E78.5 - Hyperlipidemia, unspecified Code(s): E78.5 - Hyperlipidemia, unspecified Status: Chronic (3) Hypertension: Qualifiers: Hypertension type: essential hypertension Qualified Code(s): I10 - Essential (primary) hypertension Code(s): I10 - Essential (primary) hypertension Status: Chronic Assessment and Plan: High. On Amlodipine and Coreg. Will add Losartan 25 mg daily. (4) End-stage renal disease on hemodialysis: Code(s): N18.6 - End stage renal disease; Z99.2 - Dependence on renal dialysis Status: Chronic (5) Non-ischemic cardiomyopathy: Code(s): I42.8 - Other cardiomyopathies Status: Acute Assessment and Plan: Echo 04/19/20 shows EF 20-25%. Spoke with patient's , Brigid, who states this is not new since it was known at [facility] in Jan 2020. He had cardiac cath in Jan 2020 at [facility] which did not show significant CAD to warrant revascularization. Started Losartan 25 mg daily. Already on Coreg. Discussed Life Vest to prevent sudden cardiac arrest and she is agreeing for it. After receiving Life vest, he may be discharged home to f/u with me in 1-2 week. Subjective Date/time seen: 04/20/20 08:18 Patient is confused and only able to give me his name and tells me he does not have chest pain. Exam Const: General: cooperative, healthy appearing and comfortable Resp: Auscultation: clear to auscultation bilaterally, no crackles, no rales, no rhonchi and no wheezes Cardio: Jugular venous distension: no JVD Rate: regular rate Rhythm: regular rhythm Heart sounds: no murmurs Peripheral pulses: dorsalis pedis present GI: GI Palp: No abdominal tenderness and Yes Soft to palpation Neuro: General: oriented to person, No oriented to place and No oriented to time Extrem: Right lower extremity: no edema Left lower extremity: no edema Objective Data Vital Signs Vital Signs: Vital Signs - 24 hr 04/19/20 08:33 04/19/20 08:43 04/19/20 14:00 Temperature 98.6 F Pulse Rate 77 89 70 Respiratory Rate 18 20 19 Blood Pressure 128/69 Pulse Oximetry 91 92 04/19/20 14:28 04/19/20 14:34 04/19/20 20:46 Temperature Pulse Rate 75 78 62 Respiratory Rate 18 18 Blood Pressure Pulse Oximetry 04/19/20 21:30 04/19/20 22:00 04/20/20 00:00 Temperature 98.6 F Pulse Rate 69 68 Respiratory Rate 18 20 20 Blood Pressure 129/59 L Pulse Oximetry 87 L 98 97 04/20/20 02:55 04/20/20 06:00 Temperature 98.5 F Pulse Rate 69 70 Respiratory Rate 18 18 Blood Pressure 141/73 H Pulse Oximetry 96 Intake/Output Intake/Output: Intake & Output 04/17/20 04/18/20 04/19/20 04/20/20 23:59 23:59 23:59 23:59 Intake Total 108 675 1128 500 Output Total 400 2029 225 300 Balance 460 1309 965 200 Meds/Results Medications: Active Medications Generic Name Dose Route Start Last Admin Trade Name Freq PRN Reason Stop Dose Admin Acetaminophen 650 mg 04/16/20 22:00 04/19/20 20:46 Acetaminophen 325 Mg Tablet PO 650 mg Q4H PRN Administration Mild Pain (1-3) or Fever Acetaminophen 500 mg 04/17/20 04:48 Acetaminophen 500 Mg Tablet PO Q6H PRN Mild Pain (Scale Score 1-4) Albuterol 2 puff 04/17/20 04:48 04/18/20 16:21 Albuterol Sulfate (*Sp) Aerosol 1 Puff INHALATION 2 puff Q4-6H PRN Administration shortness of breath or wheezing Albuterol 2.
--- NOTE | 2020-04-20 09:10 | PC.NURSE ---
To dialysis per bed. Patient not oriented to take medications. I will attempt to administer medications after dialysis.
[2020-04-20] MEDS: EPOETIN ALFA-EPBX 10,000 UNITS/ML VIAL 10000 UNITS IV PUSH (11:08)
--- NOTE | 2020-04-20 12:12 | PM.PNNEP ---
Progress Note: A&P Assessment and Plan (1) End-stage renal disease on hemodialysis: Code(s): N18.6 - End stage renal disease; Z99.2 - Dependence on renal dialysis Status: Chronic Assessment and Plan: the patient has end-stage renal disease. He started HD but needles became dislodged when he moved around. he is a bit agitated. he is getting reset up for more dialysis. will remove fluid (2) Suspected 2019 novel coronavirus infection: Code(s): Z20.822 - Contact with and (suspected) exposure to COVID-19 Status: Acute Assessment and Plan: He was swabbed and negative. (3) Hypertension: Qualifiers: Hypertension type: essential hypertension Qualified Code(s): I10 - Essential (primary) hypertension Code(s): I10 - Essential (primary) hypertension Status: Chronic Assessment and Plan: His blood pressure is doing pretty well ranging from 130-150. He is on amlodipine And carvedilol for this. (4) Generalized weakness: Code(s): R53.1 - Weakness Status: Acute Assessment and Plan: improved. (5) Anemia: Qualifiers: Anemia type: unspecified type Qualified Code(s): D64.9 - Anemia, unspecified Code(s): D64.9 - Anemia, unspecified Status: Chronic Assessment and Plan: Hemoglobin is 9.9. We will give him EPO. (6) Elevated troponin level: Code(s): R77.8 - Other specified abnormalities of plasma proteins Status: Acute Assessment and Plan: His troponin levels are mildly elevated and Creeping up. Dr. Aly saw the patient. (7) Hyperlipidemia: Qualifiers: Hyperlipidemia type: unspecified Qualified Code(s): E78.5 - Hyperlipidemia, unspecified Code(s): E78.5 - Hyperlipidemia, unspecified Status: Chronic Assessment and Plan: He is on atorvastatin. (8) Migraine, unspecified, not intractable, without status migrainosus: Code(s): G43.909 - Migraine, unspecified, not intractable, without status migrainosus Status: Acute Assessment and Plan: He gets meds p.r.n.. He does not have a headache now. Subjective Date/time seen: 04/20/20 22:12 Interval history: confused today. he had ambien last night. Exam Narrative: Exam Narrative: WDWN in NAD skin no rash Or subcu nodules head ncat lungs clear bilaterally cor reg no rub abd BS+ nontender and soft ext no edema or cyanosis.. Objective Data Vital Signs Vital Signs: Vital Signs - 24 hr 04/20/20 00:00 04/20/20 02:55 04/20/20 06:00 Temperature 36.9 C Pulse Rate 69 70 Respiratory Rate 20 18 18 Blood Pressure 141/73 H Pulse Oximetry 97 96 04/20/20 07:58 04/20/20 09:21 04/20/20 09:30 Temperature Pulse Rate 69 72 Respiratory Rate Blood Pressure 139/75 146/77 H Pulse Oximetry 95 04/20/20 09:45 04/20/20 10:00 04/20/20 10:15 Temperature Pulse Rate 80 70 71 Respiratory Rate Blood Pressure 135/90 141/73 H 140/62 Pulse Oximetry 04/20/20 10:30 04/20/20 11:00 04/20/20 11:15 Temperature Pulse Rate 70 73 77 Respiratory Rate Blood Pressure 145/74 H 154/81 H 149/83 H Pulse Oximetry 04/20/20 11:30 04/20/20 11:45 04/20/20 12:00 Temperature Pulse Rate 67 77 74 Respiratory Rate Blood Pressure 149/85 H 147/74 H 150/69 H Pulse Oximetry 04/20/20 12:15 04/20/20 12:30 04/20/20 12:45 Temperature Pulse Rate 69 67 82 Respiratory Rate Blood Pressure 130/65 137/82 138/74 Pulse Oximetry 04/20/20 13:00 04/20/20 13:15 04/20/20 13:50 Temperature 37.0 C Pulse Rate 77 73 Respiratory Rate 18 Blood Pressure 137/82 161/70 H Pulse Oximetry 95 04/20/20 13:54 04/20/20 14:00 04/20/20 14:20 Temperature 37.1 C 36.9 C Pulse Rate 74 72 Respiratory Rate 16 24 H Blood Pressure 137/80 144/70 H Pulse Oximetry 100 95 04/20/20 15:00 04/20/20 15:09 04/20/20 15:26 Temperature Pulse Rate 70 74 Respi
--- NOTE | 2020-04-20 12:51 | PC.NURSE ---
Patient returned from Dialysis. Patient not alert enough to take oral medications.
[2020-04-20] MEDS: ENOXAPARIN 30 MG/0.3 ML SYRINGE SUB-Q (13:26)
[2020-04-20] MEDS: ACETAMINOPHEN 650 MG SUPPOSITORY RECTAL (18:20)
--- NOTE | 2020-04-20 18:26 | PM.IMPN ---
Progress Note: A&P Assessment and Plan (1) Multilobar lung infiltrate: Code(s): R91.8 - Other nonspecific abnormal finding of lung field Status: Acute Assessment and Plan: Started on broad spectrum antibiotics Blood cx ordered Supportive care Had a temp Monitor temp curve (2) Acute and chronic respiratory failure with hypoxia: Code(s): J96.21 - Acute and chronic respiratory failure with hypoxia Status: Acute Assessment and Plan: Likely secondary to fluid overload and lung infiltrates O2 by nc to keep O2 sat at 94% Supportive care (3) DURGA (obstructive sleep apnea): Code(s): G47.33 - Obstructive sleep apnea (adult) (pediatric) Status: Acute Assessment and Plan: Will place him on CPAP tonight (4) Non-ischemic cardiomyopathy: Code(s): I42.8 - Other cardiomyopathies Status: Acute Assessment and Plan: Lifevest Appreciate Cardiology note (5) Cough: Code(s): R05 - Cough Status: Acute Assessment and Plan: Likely secondary to fluid overload, also started on Losartan and persistent infiltrate (6) Renal transplant failure and rejection: Code(s): T86.12 - Kidney transplant failure; T86.11 - Kidney transplant rejection Status: Acute Assessment and Plan: Failed (7) Physical deconditioning: Code(s): R53.81 - Other malaise Status: Acute Assessment and Plan: PT/OT/[employer] on board. (8) End-stage renal disease on hemodialysis: Code(s): N18.6 - End stage renal disease; Z99.2 - Dependence on renal dialysis Status: Chronic Assessment and Plan: Received HD today. Subjective Date/time seen: 04/20/20 18:26 States that feels well. Review of Systems Review of Systems: ROS unobtainable: Yes unobtainable due to medical condition (Delirious.) Exam Narrative: Exam Narrative: Sitting in bed. Const: General: comfortable, no acute distress, ill appearing and lethargic Nutritional Appearance: cachectic Orientation/consciousness: oriented to person HENMT: Head: normocephalic Ears: hearing grossly normal bilaterally General nose exam: Normal external nose present Face and sinus: normal facial exam Eyes: General: appearance normal, both eyes and all related structures Pupils: Equal, round and reactive pupils present EOM: EOMs intact bilaterally Neck: Neck: no lymphadenopathy, supple and no JVD Resp: Effort & Inspection: able to speak in complete sentences Auscultation: diminished lung sounds Cardio: Jugular venous distension: no JVD Rate: regular rate Rhythm: regular rhythm GI: GI Palp: Yes Soft to palpation and Yes No hepatosplenomegaly present Skin: Rashes: no rashes Wounds: no wounds Neuro: General: CN's II-XI intact bilaterally and other (lethargic) Cranial nerves: Yes CN's II-XII intact bilaterally and Yes Equal, round and reactive pupils present Speech: normal speech Motor exam (neuro): 5/5 motor strength present throughout Extrem: General: no pedal edema Objective Data Vital Signs Vital Signs: Vital Signs - 24 hr 04/19/20 20:46 04/19/20 21:30 04/19/20 22:00 Temperature 98.6 F Pulse Rate 62 69 68 Respiratory Rate 18 20 Blood Pressure 129/59 L Pulse Oximetry 87 L 98 04/20/20 00:00 04/20/20 02:55 04/20/20 06:00 Temperature 98.5 F Pulse Rate 69 70 Respiratory Rate 20 18 18 Blood Pressure 141/73 H Pulse Oximetry 97 96 04/20/20 09:21 04/20/20 09:30 04/20/20 09:45 Temperature Pulse Rate 69 72 80 Respiratory Rate Blood Pressure 139/75 146/77 H 135/90 Pulse Oximetry 04/20/20 10:00 04/20/20 10:15 04/20/20 10:30 Temperature Pulse Rate 70 71 70 Respiratory Rate Blood Pressure 141/73 H 140/62 145/74 H Pulse Oximetry 04/20/20 11:00 04/20/20 11:15 04/20/20 11:30 Temperature Pulse Rate 73 77 67 Respiratory Rate Blood Pressure 154/81 H 149/83 H 149/85 H Pulse Oximetry 04/20/20 11:45
[2020-04-20] MEDS: BISACODYL 10 MG SUPPOSITORY RECTAL (19:01)
[2020-04-20] MEDS: carvediloL 12.5 MG TABLET BY MOUTH (20:30)
[2020-04-21] VITALS (34 sets, daily range): BP systolic 85–126; BP diastolic 42–63; PULSE 55–72; RESP 16–20; TEMP 36.1–36.7; O2SAT 92–99
[2020-04-21] MEDS: ALBUTEROL SULFATE NEB 2.5 MG/0.5 ML INH INHALATION ×3 (03:20→15:11)
[2020-04-21] MEDS: IPRATROPIUM BR 0.02% INH SOLN 0.5 MG/2.5 ML VIAL INHALATION ×3 (03:20→15:11)
[2020-04-21] MEDS: TAMSULOSIN HCL 0.4 MG CAPSULE PO ×2 (08:31→16:08)
[2020-04-21] MEDS: FAMOTIDINE 20 MG TABLET PO (08:31)
[2020-04-21] MEDS: FUROSEMIDE 80 MG TABLET PO ×2 (08:31→16:08)
[2020-04-21] MEDS: SEVELAMER CARBONATE 800 MG TABLET BY MOUTH ×3 (08:31→16:08)
[2020-04-21] MEDS: LOSARTAN POTASSIUM 25 MG TABLET PO (08:31)
[2020-04-21] MEDS: amLODIPine BESYLATE 5 MG TABLET 10 MG PO (08:31)
[2020-04-21] MEDS: calcium polycarbophiL 625 MG TABLET 1250 MG PO ×2 (08:35→16:08)
[2020-04-21] MEDS: ATORVASTATIN 10 MG TABLET PO (08:36)
[2020-04-21] MEDS: carvediloL 12.5 MG TABLET BY MOUTH (08:42)
[2020-04-21] MEDS: ENOXAPARIN 30 MG/0.3 ML SYRINGE SUB-Q (08:48)
[2020-04-21] MEDS: guaiFENesin 200 MG/10 ML UDC PO (08:49)
[2020-04-21 08:59] LABS: Basophils Percent Auto 0.4 % (0.2-1.2); Eosinophils Absolute Auto 0.2 K/mm3 (0-0.3); Eosinophils Percent Auto 4.8 % (0-4.4); Hematocrit 30.8 % (42.0-52.0); Hemoglobin 9.9 g/dL (14.0-18.0); Immature Granulocyte Absolute 0.02 K/mm3 (0.00-0.031); Immature Granulocyte Percent A 0.4 % (0-0.5); Lymphocytes Percent Auto 13.9 % (18.3-44.2); Mean Corpuscular HGB Conc 32.1 g/dl (32-36); Mean Corpuscular Hemoglobin 32.7 pg (26-34); Mean Corpuscular Volume 101.7 fl (80-100); Mean Platelet Volume 10.5 fl (7.4-10.4); Monocytes Absolute Auto 0.3 K/mm3 (0.1-0.6); Neutrophils Absolute Auto 3.8 K/mm3 (1.3-6.7); Neutrophils Percent Auto 75.5 % (45.5-73.1); Platelet Count Result 179 k/mm3 (150-375); Red Blood Count 3.03 M/mm3 (4.6-6.20)
[2020-04-21 09:00] LABS: Ammonia < 9 umol/L (9-30)
--- NOTE | 2020-04-21 09:02 | PM.PNCARD ---
Progress Note: A&P Assessment and Plan (1) Elevated troponin level: Code(s): R77.8 - Other specified abnormalities of plasma proteins Status: Acute Assessment and Plan: No clinical symptoms to suggest ACS. Troponin are mildly elevated and essentially flat up to .205. Known cardiomyopathy with no significant CAD in Jan 2020 at [facility]; Diag shows mod with 70% ostial stenosis and otherwise 30-50% CAD stenosis in LAD, LCx, RCA territories. (2) Hyperlipidemia: Qualifiers: Hyperlipidemia type: unspecified Qualified Code(s): E78.5 - Hyperlipidemia, unspecified Code(s): E78.5 - Hyperlipidemia, unspecified Status: Chronic (3) Hypertension: Qualifiers: Hypertension type: essential hypertension Qualified Code(s): I10 - Essential (primary) hypertension Code(s): I10 - Essential (primary) hypertension Status: Chronic Assessment and Plan: High. On Amlodipine and Coreg. Will add Losartan 25 mg daily. (4) End-stage renal disease on hemodialysis: Code(s): N18.6 - End stage renal disease; Z99.2 - Dependence on renal dialysis Status: Chronic (5) Non-ischemic cardiomyopathy: Code(s): I42.8 - Other cardiomyopathies Status: Acute Assessment and Plan: Echo 04/19/20 shows EF 20-25%. Spoke with patient's , Brigid, who states this is not new since it was known at [facility] in Jan 2020. He had cardiac cath in Jan 2020 at [facility] which did not show significant CAD to warrant revascularization. Started Losartan 25 mg daily. Already on Coreg. Discussed Life Vest to prevent sudden cardiac arrest and she is agreeing for it. The rep for Life Vest came out to instruct on how to wear it on 04/20/20, however, it was deemed he was not able to comprehend on how to wear it or use it. I was told by nurse that if his mental status improves and he will be able to follow instructions then the rep can come out and start Life Vest. (6) Pneumonia: Code(s): J18.9 - Pneumonia, unspecified organism Status: Acute Assessment and Plan: CXR shows perihilar infiltrates. On Antibiotics. Managed by hospitalist. Subjective Date/time seen: 04/21/20 09:02 Denies chest pain or sob. Still has dry cough. Confused but better than prior days. Exam Const: General: cooperative, healthy appearing and comfortable Resp: Auscultation: clear to auscultation bilaterally, no crackles, no rales, no rhonchi and no wheezes Cardio: Jugular venous distension: no JVD Rate: regular rate Rhythm: regular rhythm Heart sounds: no murmurs Peripheral pulses: dorsalis pedis present GI: GI Palp: No abdominal tenderness and Yes Soft to palpation Neuro: General: oriented to person, No oriented to place and No oriented to time Extrem: Right lower extremity: no edema Left lower extremity: no edema Objective Data Vital Signs Vital Signs: Vital Signs - 24 hr 04/20/20 09:21 04/20/20 09:30 04/20/20 09:45 Temperature Pulse Rate 69 72 80 Respiratory Rate Blood Pressure 139/75 146/77 H 135/90 Pulse Oximetry 04/20/20 10:00 04/20/20 10:15 04/20/20 10:30 Temperature Pulse Rate 70 71 70 Respiratory Rate Blood Pressure 141/73 H 140/62 145/74 H Pulse Oximetry 04/20/20 11:00 04/20/20 11:15 04/20/20 11:30 Temperature Pulse Rate 73 77 67 Respiratory Rate Blood Pressure 154/81 H 149/83 H 149/85 H Pulse Oximetry 04/20/20 11:45 04/20/20 12:00 04/20/20 12:15 Temperature Pulse Rate 77 74 69 Respiratory Rate Blood Pressure 147/74 H 150/69 H 130/65 Pulse Oximetry 04/20/20 12:30 04/20/20 12:45 04/20/20 13:00 Temperature Pulse Rate 67 82 77 Respiratory Rate Blood Pressure 137/82 138/74 137/82 Pulse Oximetry 04/20/20 13:15 04/20/20 13:50 04/20/20 13:54 Temperature 98.6 F 98.7 F Pulse Rate 73 74 Respiratory Rate 18 16 Blood Pressure 161/70 H 137/80 Pulse Oximetry 95 04/20/20 14:00 04/20/20 14:2
[2020-04-21 09:19] LABS: Anion Gap 9 mmol/L (8-16); Blood Urea Nitrogen 37 mg/dL (9-20); Calcium 8.7 mg/dL (8.4-10.2); Carbon Dioxide 32 mmol/L (22-30); Chloride 92 mmol/L (98-107); Estimated CRCL calculation 10 ml/min; Estimated Glomerular Filt Rate 12; Glucose 128 mg/dL (75-110); Potassium 4.3 mmol/L (3.4-5.0); Sodium 133 mmol/L (137-145)
--- NOTE | 2020-04-21 10:27 | PM.PNNEP ---
Progress Note: A&P Assessment and Plan (1) End-stage renal disease on hemodialysis: Code(s): N18.6 - End stage renal disease; Z99.2 - Dependence on renal dialysis Status: Chronic Assessment and Plan: the patient has end-stage renal disease. He finished his dialysis yesterday without event. 2L were taken off. Chest x-ray was done today showing some fluid. He is only on half a L of oxygen by nasal cannula. However without chest x-ray think we ought to try for a little more fluid today. Will discuss. (2) Suspected 2019 novel coronavirus infection: Code(s): Z20.822 - Contact with and (suspected) exposure to COVID-19 Status: Acute Assessment and Plan: He was swabbed and negative. (3) Hypertension: Qualifiers: Hypertension type: essential hypertension Qualified Code(s): I10 - Essential (primary) hypertension Code(s): I10 - Essential (primary) hypertension Status: Chronic Assessment and Plan: His blood pressure is doing pretty well ranging from 130-150. He is on amlodipine And carvedilol for this. (4) Generalized weakness: Code(s): R53.1 - Weakness Status: Acute Assessment and Plan: Still somewhat weak. Working with the pulmonary situation. (5) Anemia: Qualifiers: Anemia type: unspecified type Qualified Code(s): D64.9 - Anemia, unspecified Code(s): D64.9 - Anemia, unspecified Status: Chronic Assessment and Plan: Hemoglobin is 9.9. We will give him EPO. (6) Elevated troponin level: Code(s): R77.8 - Other specified abnormalities of plasma proteins Status: Acute Assessment and Plan: His troponin levels are mildly elevated . Dr. Aly seeing the patient. (7) Hyperlipidemia: Qualifiers: Hyperlipidemia type: unspecified Qualified Code(s): E78.5 - Hyperlipidemia, unspecified Code(s): E78.5 - Hyperlipidemia, unspecified Status: Chronic Assessment and Plan: He is on atorvastatin. (8) Migraine, unspecified, not intractable, without status migrainosus: Code(s): G43.909 - Migraine, unspecified, not intractable, without status migrainosus Status: Acute Assessment and Plan: He gets meds p.r.n.. He does not have a headache now. (9) Acute and chronic respiratory failure with hypoxia: Code(s): J96.21 - Acute and chronic respiratory failure with hypoxia Status: Acute Assessment and Plan: This may be due to fluid. He also could have pneumonia. He did have a fever earlier in the hospital stay, and had another 1 yesterday. He is on Zosyn Will remove fluid again today. Subjective Date/time seen: 04/21/20 10:27 Interval history: Less agitated today. Still not himself. However he is much more alert and interactive today. is in the room and we discussed the situation. He is off the Ambien and pain meds. Exam Narrative: Exam Narrative: WDWN in NAD skin no rash Or subcu nodules head ncat lungs clear cor reg no rub abd BS+ nontender and soft ext no edema Objective Data Vital Signs Vital Signs: Vital Signs - 24 hr 04/20/20 10:30 04/20/20 11:00 04/20/20 11:15 Temperature Pulse Rate 70 73 77 Respiratory Rate Blood Pressure 145/74 H 154/81 H 149/83 H Pulse Oximetry 04/20/20 11:30 04/20/20 11:45 04/20/20 12:00 Temperature Pulse Rate 67 77 74 Respiratory Rate Blood Pressure 149/85 H 147/74 H 150/69 H Pulse Oximetry 04/20/20 12:15 04/20/20 12:30 04/20/20 12:45 Temperature Pulse Rate 69 67 82 Respiratory Rate Blood Pressure 130/65 137/82 138/74 Pulse Oximetry 04/20/20 13:00 04/20/20 13:15 04/20/20 13:50 Temperature 37.0 C Pulse Rate 77 73 Respiratory Rate 18 Blood Pressure 137/82 161/70 H Pulse Oximetry 95 04/20/20 13:54 04/20/20 14:00 04/20/20 14:20 Temperature 37.1 C 36.9 C Pulse Rate 74 72 Respiratory Rate 1
[2020-04-21] MEDS: CHOLECALCIFEROL 1,000 UNITS TABLET 2000 UNITS PO (10:49)
--- NOTE | 2020-04-21 13:24 | PM.IMPN ---
Progress Note: A&P Assessment and Plan (1) Multilobar lung infiltrate: Code(s): R91.8 - Other nonspecific abnormal finding of lung field Status: Acute Assessment and Plan: Started on Zosyn and Vanc Will deescalate antibiotics Awaiting blood cx Supportive care Defervesced (2) Acute and chronic respiratory failure with hypoxia: Code(s): J96.21 - Acute and chronic respiratory failure with hypoxia Status: Acute Assessment and Plan: Weaning off of oxygen. (3) DURGA (obstructive sleep apnea): Code(s): G47.33 - Obstructive sleep apnea (adult) (pediatric) Status: Acute Assessment and Plan: CPAP at bed time (4) Cough: Code(s): R05 - Cough Status: Acute Assessment and Plan: Persistent cough although improved Chest xr repeat reviewed Barium Swallow eval with mild trace penetration into larynx (5) Non-ischemic cardiomyopathy: Code(s): I42.8 - Other cardiomyopathies Status: Acute Assessment and Plan: Stable Lifevest when going home Follows up at [place] (6) Elevated troponin level: Code(s): R77.8 - Other specified abnormalities of plasma proteins Status: Acute Assessment and Plan: Had extensive cardiac work up in January R and L heart cath Appears to be stable (7) Generalized weakness: Code(s): R53.1 - Weakness Status: Acute Assessment and Plan: Likely secondary to poor nutritional status and chronic illness progression Dietary supplement with Nepro PT/OT (8) Physical deconditioning: Code(s): R53.81 - Other malaise Status: Acute Assessment and Plan: Continue therapy (9) End-stage renal disease on hemodialysis: Code(s): N18.6 - End stage renal disease; Z99.2 - Dependence on renal dialysis Status: Chronic Assessment and Plan: Continue HD on Mo, Wd, Fr. (10) Renal transplant failure and rejection: Code(s): T86.12 - Kidney transplant failure; T86.11 - Kidney transplant rejection Status: Acute Assessment and Plan: Failed renal transplant. (11) Body mass index (BMI) 21.0-21.9, adult: Onset Date: 11/17/18 Code(s): Z68.21 - Body mass index [BMI] 21.0-21.9, adult Status: Acute Assessment and Plan: Poor appetite. On Nepro Subjective Date/time seen: 04/21/20 13:24 States that he feels fine Review of Systems Review of Systems: ROS unobtainable: Yes unobtainable due to medical condition Exam Narrative: Exam Narrative: Sitting in bed. Const: General: cooperative, comfortable, alert, awake and confusion Nutritional Appearance: cachectic Orientation/consciousness: oriented to person, oriented to place and confusion HENMT: Head: normal to inspection Ears: hearing grossly normal bilaterally General nose exam: Normal external nose present Face and sinus: normal facial exam Eyes: General: appearance normal, both eyes and all related structures Pupils: Equal, round and reactive pupils present EOM: EOMs intact bilaterally Neck: Neck: full ROM, supple and no JVD Resp: Effort & Inspection: normal respiratory effort, able to speak in complete sentences and Actively coughing dry Auscultation: clear to auscultation bilaterally Cardio: Jugular venous distension: no JVD Rate: regular rate Rhythm: regular rhythm GI: GI Palp: Yes Soft to palpation and Yes No hepatosplenomegaly present Skin: Rashes: no rashes Neuro: General: oriented to person, oriented to place and CN's II-XI intact bilaterally Cranial nerves: Yes CN's II-XII intact bilaterally, Yes Equal, round and reactive pupils present and Yes Bilaterally intact EOM present Cognition (Neuro): abnormal cognition (confusion) Extrem: General: no pedal edema Objective Data Vital Signs Vital Signs: Vital Signs - 24 hr 04/20/20 13:50 04/20/20 13:54 04/20/20 14:00 Temperature 98.7 F 98.5 F Pulse Rate 74 72 Respiratory Rate 16 24 H Blood Pre
[2020-04-21] MEDS: LACTULOSE 20 GM/30 ML UDC BY MOUTH (14:27)
--- NOTE | 2020-04-21 19:30 | PC.NURSE ---
To dialysis. Report given to HUEY Kessler.
--- NOTE | 2020-04-21 20:00 | PC.NURSE ---
Pt is in dialysis at this time. Will assess when pt back on floor.
[2020-04-21] MEDS: ACETAMINOPHEN 325 MG TABLET 650 MG PO (23:41)
[2020-04-22] VITALS (16 sets, daily range): BP systolic 114–130; BP diastolic 56–68; PULSE 54–99; RESP 16–20; TEMP 35.9–36.4; O2SAT 96–100
[2020-04-22 01:35] LABS: Vancomycin Random 11.8 ug/mL (10-20)
[2020-04-22] MEDS: ALBUTEROL SULFATE NEB 2.5 MG/0.5 ML INH INHALATION ×3 (02:27→19:45)
[2020-04-22] MEDS: IPRATROPIUM BR 0.02% INH SOLN 0.5 MG/2.5 ML VIAL INHALATION ×3 (02:27→19:46)
--- NOTE | 2020-04-22 08:22 | PM.PNNEP ---
Progress Note: A&P Assessment and Plan (1) End-stage renal disease on hemodialysis: Code(s): N18.6 - End stage renal disease; Z99.2 - Dependence on renal dialysis Status: Chronic Assessment and Plan: the patient has end-stage renal disease. He had dry ultrafiltration yesterday. Blood pressure did well. Will do regular dialysis tomorrow. (2) Suspected 2019 novel coronavirus infection: Code(s): Z20.822 - Contact with and (suspected) exposure to COVID-19 Status: Acute Assessment and Plan: He was swabbed and negative. (3) Hypertension: Qualifiers: Hypertension type: essential hypertension Qualified Code(s): I10 - Essential (primary) hypertension Code(s): I10 - Essential (primary) hypertension Status: Chronic Assessment and Plan: His blood pressure was a bit low yesterday evening while on dialysis. It is doing well now. I think we can cut back on his amlodipine. (4) Generalized weakness: Code(s): R53.1 - Weakness Status: Acute Assessment and Plan: Still somewhat weak. His echo does show severe cardiomyopathy with aortic and mitral regurgitation and pulmonary hypertension. (5) Anemia: Qualifiers: Anemia type: unspecified type Qualified Code(s): D64.9 - Anemia, unspecified Code(s): D64.9 - Anemia, unspecified Status: Chronic Assessment and Plan: Hemoglobin is 9.9. We will give him EPO. (6) Elevated troponin level: Code(s): R77.8 - Other specified abnormalities of plasma proteins Status: Acute Assessment and Plan: His troponin levels are mildly elevated . Dr. Aly seeing the patient. (7) Hyperlipidemia: Qualifiers: Hyperlipidemia type: unspecified Qualified Code(s): E78.5 - Hyperlipidemia, unspecified Code(s): E78.5 - Hyperlipidemia, unspecified Status: Chronic Assessment and Plan: He is on atorvastatin. (8) Migraine, unspecified, not intractable, without status migrainosus: Code(s): G43.909 - Migraine, unspecified, not intractable, without status migrainosus Status: Acute Assessment and Plan: He gets meds p.r.n.. He does not have a headache now. (9) Acute and chronic respiratory failure with hypoxia: Code(s): J96.21 - Acute and chronic respiratory failure with hypoxia Status: Acute Assessment and Plan: This may be due to fluid. He has cardiomyopathy. His blood pressure is a bit soft when removing fluid. Will discontinue the amlodipine. Dr. Aly is on the case He also could have pneumonia. He is on Zosyn Will remove fluid again tomorrow (10) Altered mental status: Code(s): R41.82 - Altered mental status, unspecified Status: Acute Assessment and Plan: CT brain is negative. Ammonia is okay. Will check TSH B12 and folate. This may be related to pneumonia as well. Subjective Date/time seen: 04/22/20 08:22 Interval history: Patient is calm today. No shortness of breath or chest pain He knows he is in a hospital, and says it is April 2020 He is off the Ambien and pain meds. Exam Narrative: Exam Narrative: WDWN in NAD skin no rash Or subcu nodules head ncat lungs clear bilaterally cor reg no rub abd BS+ nontender and soft ext no edema or cyanosis Objective Data Vital Signs Vital Signs: Vital Signs - 24 hr 04/21/20 08:29 04/21/20 08:42 04/21/20 10:13 Temperature Pulse Rate 72 64 63 Respiratory Rate 18 Blood Pressure Pulse Oximetry 94 94 04/21/20 10:21 04/21/20 12:00 04/21/20 14:25 Temperature 36.4 C Pulse Rate 72 64 60 Respiratory Rate 18 18 Blood Pressure 108/63 Pulse Oximetry 95 96 04/21/20 15:09 04/21/20 15:12 04/21/20 15:21 Temperature Pulse Rate 60 62 Respiratory Rate 20 18 Blood Pressure Pulse Oximetry 94 04/21/20 15:57 04/21/20 19:35 04/21/20 19:45 Temperature 36.5 C Pulse
[2020-04-22] MEDS: CHOLECALCIFEROL 1,000 UNITS TABLET 2000 UNITS PO (09:10)
[2020-04-22] MEDS: FUROSEMIDE 80 MG TABLET PO ×2 (09:10→16:22)
[2020-04-22] MEDS: calcium polycarbophiL 625 MG TABLET 1250 MG PO ×2 (09:10→16:18)
[2020-04-22] MEDS: SEVELAMER CARBONATE 800 MG TABLET BY MOUTH ×3 (09:10→16:18)
[2020-04-22] MEDS: LOSARTAN POTASSIUM 25 MG TABLET PO (09:10)
[2020-04-22] MEDS: ATORVASTATIN 10 MG TABLET PO (09:10)
[2020-04-22] MEDS: FAMOTIDINE 20 MG TABLET PO (09:10)
[2020-04-22] MEDS: TAMSULOSIN HCL 0.4 MG CAPSULE PO ×2 (09:11→16:18)
[2020-04-22] MEDS: guaiFENesin 200 MG/10 ML UDC PO (09:11)
[2020-04-22] MEDS: ENOXAPARIN 30 MG/0.3 ML SYRINGE SUB-Q (09:11)
[2020-04-22] MEDS: carvediloL 12.5 MG TABLET BY MOUTH ×2 (09:12→20:29)
--- NOTE | 2020-04-22 09:24 | PM.PNCARD ---
Progress Note: A&P Assessment and Plan (1) Elevated troponin level: Code(s): R77.8 - Other specified abnormalities of plasma proteins Status: Acute Assessment and Plan: No clinical symptoms to suggest ACS. Troponin are mildly elevated and essentially flat up to .205. Known cardiomyopathy with no significant CAD in Jan 2020 at [facility]; Diag shows mod disease with 70% ostial stenosis and otherwise 30-50% CAD stenosis in LAD, LCx, RCA territories. (2) Hyperlipidemia: Qualifiers: Hyperlipidemia type: unspecified Qualified Code(s): E78.5 - Hyperlipidemia, unspecified Code(s): E78.5 - Hyperlipidemia, unspecified Status: Chronic (3) Hypertension: Qualifiers: Hypertension type: essential hypertension Qualified Code(s): I10 - Essential (primary) hypertension Code(s): I10 - Essential (primary) hypertension Status: Chronic Assessment and Plan: Controlled on Coreg and Losartan 25 mg daily. (4) End-stage renal disease on hemodialysis: Code(s): N18.6 - End stage renal disease; Z99.2 - Dependence on renal dialysis Status: Chronic (5) Non-ischemic cardiomyopathy: Code(s): I42.8 - Other cardiomyopathies Status: Acute Assessment and Plan: Echo 04/19/20 shows EF 20-25%. Spoke with patient's , Brigid, who states this is not new since it was known at [facility] in Jan 2020. He had cardiac cath in Jan 2020 at [facility] which did not show significant CAD to warrant revascularization. Started Losartan 25 mg daily. Already on Coreg. Discussed Life Vest to prevent sudden cardiac arrest and she is agreeing for it. The rep for Life Vest came out to instruct on how to wear it on 04/20/20, however, it was deemed he was not able to comprehend on how to wear it or use it. I was told by nurse that if his mental status improves and he will be able to follow instructions then the rep can come out and start Life Vest. Since he appears more lucid today, will order Life Vest to be instructed again for him to wear. (6) Pneumonia: Code(s): J18.9 - Pneumonia, unspecified organism Status: Acute Assessment and Plan: CXR shows perihilar infiltrates. On Antibiotics. Managed by hospitalist. Subjective Date/time seen: 04/22/20 09:24 Denies chest pain or sob. Has dry cough. He appears more lucid this morning. Exam Const: General: cooperative, healthy appearing and comfortable Resp: Auscultation: clear to auscultation bilaterally, no crackles, no rales, no rhonchi and no wheezes Cardio: Jugular venous distension: no JVD Rate: regular rate Rhythm: regular rhythm Heart sounds: no murmurs Peripheral pulses: dorsalis pedis present GI: GI Palp: No abdominal tenderness and Yes Soft to palpation Neuro: General: oriented to person, No oriented to place and No oriented to time Extrem: Right lower extremity: no edema Left lower extremity: no edema Objective Data Vital Signs Vital Signs: Vital Signs - 24 hr 04/21/20 10:13 04/21/20 10:21 04/21/20 12:00 Temperature Pulse Rate 63 72 64 Respiratory Rate 18 18 Blood Pressure Pulse Oximetry 94 95 04/21/20 14:25 04/21/20 15:09 04/21/20 15:12 Temperature 97.6 F Pulse Rate 60 60 Respiratory Rate 18 20 Blood Pressure 108/63 Pulse Oximetry 96 94 04/21/20 15:21 04/21/20 15:57 04/21/20 19:35 Temperature 97.7 F Pulse Rate 62 65 61 Respiratory Rate 18 18 Blood Pressure 115/60 Pulse Oximetry 04/21/20 19:45 04/21/20 20:00 04/21/20 20:15 Temperature Pulse Rate 59 L 60 58 L Respiratory Rate Blood Pressure 109/60 95/53 L 99/53 L Pulse Oximetry 04/21/20 20:30 04/21/20 20:45 04/21/20 21:00 Temperature Pulse Rate 55 L 55 L 59 L Respiratory Rate Blood Pressure 97/47 L 98/47 L 96/52 L Pulse Oximetry 04/21/20 21:15 04/21/20 21:30 04/21/20 21:45 Temperature Pulse Rate 60 57 L 56 L Respiratory Rate Blood Pressure 99/49 L 98/5
--- NOTE | 2020-04-22 14:54 | PM.IMPN ---
Progress Note: A&P Assessment and Plan (1) Altered mental status: Code(s): R41.82 - Altered mental status, unspecified Status: Acute Assessment and Plan: Improved Likely secondary to multifactorial reasons meds, acute illness. (2) Pneumonia: Code(s): J18.9 - Pneumonia, unspecified organism Status: Acute Assessment and Plan: On Zosyn and Vanc Will do one more day of iv antibiotics and then discontinue Continue to monitor (3) DURGA (obstructive sleep apnea): Code(s): G47.33 - Obstructive sleep apnea (adult) (pediatric) Status: Acute Assessment and Plan: On CPAP at night time. (4) Multilobar lung infiltrate: Code(s): R91.8 - Other nonspecific abnormal finding of lung field Status: Acute Assessment and Plan: Component of fluid overload and likely aspiration. (5) Acute and chronic respiratory failure with hypoxia: Code(s): J96.21 - Acute and chronic respiratory failure with hypoxia Status: Acute Assessment and Plan: Resolved off of oxygen Continue to monitor Spot check (6) Non-ischemic cardiomyopathy: Code(s): I42.8 - Other cardiomyopathies Status: Acute Assessment and Plan: EF=20-25% Lifevest Appreciate Cardiology note (7) Cough: Code(s): R05 - Cough Status: Acute Assessment and Plan: Improved (8) Suspected 2019 novel coronavirus infection: Code(s): Z20.822 - Contact with and (suspected) exposure to COVID-19 Status: Acute Assessment and Plan: Ruled out. (9) Generalized weakness: Code(s): R53.1 - Weakness Status: Acute Assessment and Plan: Likely secondary to chronic illness and disease progression. 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 (12) End-stage renal disease on hemodialysis: Code(s): N18.6 - End stage renal disease; Z99.2 - Dependence on renal dialysis Status: Chronic Assessment and Plan: On HD Subjective Date/time seen: 04/22/20 14:54 States that he feels fine. Review of Systems Review of Systems: Narrative: Denies any complains at this time. Exam Narrative: Exam Narrative: Sitting in bed. Const: General: cooperative, comfortable, no acute distress, alert, awake, Physically active and other (Chronically ill looking.) Nutritional Appearance: cachectic Orientation/consciousness: patient oriented x3 HENMT: Head: normocephalic Ears: hearing grossly normal bilaterally General nose exam: Normal external nose present Face and sinus: normal facial exam Mouth: Yes Normal oral and palatal mucosa present Eyes: General: appearance normal, both eyes and all related structures Pupils: Equal, round and reactive pupils present EOM: EOMs intact bilaterally Neck: Neck: no lymphadenopathy, supple and no JVD Resp: Effort & Inspection: normal respiratory effort and able to speak in complete sentences Auscultation: clear to auscultation bilaterally Cardio: Jugular venous distension: no JVD Rate: regular rate Rhythm: regular rhythm GI: GI Palp: Yes Soft to palpation and Yes No hepatosplenomegaly present Skin: Rashes: no rashes Neuro: General: patient oriented x3 and CN's II-XI intact bilaterally Cranial nerves: Yes CN's II-XII intact bilaterally, Yes Equal, round and reactive pupils present and Yes Bilaterally intact EOM present Gait exam (Neuro): Normal gait present Motor exam (neuro): 5/5 motor strength present throughout Extrem: General: no pedal edema Objective Data
[2020-04-23] VITALS (30 sets, daily range): BP systolic 77–145; BP diastolic 38–74; PULSE 59–88; RESP 16–20; TEMP 36–37.1; O2SAT 91–98
[2020-04-23] MEDS: ALBUTEROL SULFATE NEB 2.5 MG/0.5 ML INH INHALATION ×4 (01:42→21:29)
[2020-04-23] MEDS: IPRATROPIUM BR 0.02% INH SOLN 0.5 MG/2.5 ML VIAL INHALATION ×3 (01:42→21:28)
[2020-04-23 05:40] LABS: Basophils Percent Auto 0.4 % (0.2-1.2); Eosinophils Absolute Auto 0.5 K/mm3 (0-0.3); Eosinophils Percent Auto 10.9 % (0-4.4); Hematocrit 31.7 % (42.0-52.0); Hemoglobin 10.3 g/dL (14.0-18.0); Immature Granulocyte Absolute 0.01 K/mm3 (0.00-0.031); Immature Granulocyte Percent A 0.2 % (0-0.5); Lymphocytes Absolute Auto 1.07 K/mm3 (0.9-3.2); Lymphocytes Percent Auto 23.4 % (18.3-44.2); Mean Corpuscular HGB Conc 32.5 g/dl (32-36); Mean Corpuscular Hemoglobin 32.4 pg (26-34); Mean Corpuscular Volume 99.7 fl (80-100); Mean Platelet Volume 10.8 fl (7.4-10.4); Monocytes Absolute Auto 0.3 K/mm3 (0.1-0.6); Monocytes Percent Auto 5.9 % (2.6-8.5); Neutrophils Absolute Auto 2.7 K/mm3 (1.3-6.7); Neutrophils Percent Auto 59.2 % (45.5-73.1); Platelet Count Result 176 k/mm3 (150-375); Red Blood Count 3.18 M/mm3 (4.6-6.20); Red Cell Distribution Width 13.7 % (11.5-14.5); White Blood Count 4.6 K/mm3 (4.5-10.0)
[2020-04-23 05:52] LABS: Albumin Level 3.2 g/dL (3.5-5.1); Anion Gap 12 mmol/L (8-16); Blood Urea Nitrogen 62 mg/dL (9-20); Calcium 9.9 mg/dL (8.4-10.2); Carbon Dioxide 28 mmol/L (22-30); Chloride 88 mmol/L (98-107); Estimated CRCL calculation 7 ml/min; Estimated Glomerular Filt Rate 7; Glucose 88 mg/dL (75-110); Phosphorus 5.5 mg/dL (2.5-4.5); Potassium 4.7 mmol/L (3.4-5.0); Sodium 128 mmol/L (137-145)
--- NOTE | 2020-04-23 08:08 | PM.PNCARD ---
Progress Note: A&P Assessment and Plan (1) Elevated troponin level: Code(s): R77.8 - Other specified abnormalities of plasma proteins Status: Acute Assessment and Plan: No clinical symptoms to suggest ACS. Troponin are mildly elevated and essentially flat up to .205. Known cardiomyopathy with no significant CAD in Jan [address] [facility]; Diag shows mod disease with 70% ostial stenosis and otherwise 30-50% CAD stenosis in LAD, LCx, RCA territories. (2) Hyperlipidemia: Qualifiers: Hyperlipidemia type: unspecified Qualified Code(s): E78.5 - Hyperlipidemia, unspecified Code(s): E78.5 - Hyperlipidemia, unspecified Status: Chronic Assessment and Plan: On Atorvastatin. (3) Hypertension: Qualifiers: Hypertension type: essential hypertension Qualified Code(s): I10 - Essential (primary) hypertension Code(s): I10 - Essential (primary) hypertension Status: Chronic Assessment and Plan: Controlled on Coreg and Losartan 25 mg daily. (4) End-stage renal disease on hemodialysis: Code(s): N18.6 - End stage renal disease; Z99.2 - Dependence on renal dialysis Status: Chronic (5) Non-ischemic cardiomyopathy: Code(s): I42.8 - Other cardiomyopathies Status: Acute Assessment and Plan: Echo 04/19/20 shows EF 20-25%. Spoke with patient's , Brigid, who states this is not new since it was known at [facility] in Jan 2020. He had cardiac cath in Jan [address] [facility] which did not show significant CAD to warrant revascularization. Started Losartan 25 mg daily. Already on Coreg. Discussed Life Vest to prevent sudden cardiac arrest and she is agreeing for it. The rep for Life Vest came out to instruct on how to wear it on 04/20/20, however, it was deemed he was not able to comprehend on how to wear it or use it. I was told by nurse that if his mental status improves and he will be able to follow instructions then the rep can come out and start Life Vest. Since he appears more lucid today, will order Life Vest to be instructed again for him to wear. (6) Pneumonia: Code(s): J18.9 - Pneumonia, unspecified organism Status: Acute Assessment and Plan: CXR shows perihilar infiltrates. On Antibiotics. Managed by hospitalist. Subjective Date/time seen: 04/23/20 08:08 Denies chest pain or sob. He knows the year but thought he was in [place]. Exam Const: General: cooperative, healthy appearing and comfortable Resp: Auscultation: clear to auscultation bilaterally, no crackles, no rales, no rhonchi and no wheezes Cardio: Jugular venous distension: no JVD Rate: regular rate Rhythm: regular rhythm Heart sounds: no murmurs Peripheral pulses: dorsalis pedis present GI: GI Palp: No abdominal tenderness and Yes Soft to palpation Neuro: General: oriented to person, No oriented to place and No oriented to time Extrem: Right lower extremity: no edema Left lower extremity: no edema Objective Data Vital Signs Vital Signs: Vital Signs - 24 hr 04/22/20 09:12 04/22/20 12:00 04/22/20 16:00 Temperature 97 F L Pulse Rate 60 64 61 Respiratory Rate 16 Blood Pressure 119/56 L Pulse Oximetry 100 04/22/20 19:46 04/22/20 19:48 04/22/20 19:55 Temperature Pulse Rate 66 68 Respiratory Rate 20 20 Blood Pressure Pulse Oximetry 96 04/22/20 20:00 04/22/20 20:24 04/22/20 20:29 Temperature 97.6 F Pulse Rate 57 L 65 65 Respiratory Rate 16 Blood Pressure 117/68 Pulse Oximetry 100 04/23/20 00:00 04/23/20 01:42 04/23/20 01:50 Temperature Pulse Rate 71 73 77 Respiratory Rate 20 20 Blood Pressure Pulse Oximetry 04/23/20 04:00 04/23/20 05:38 04/23/20 08:02 Temperature 97.3 F L Pulse Rate 69 59 L 77 Respiratory Rate 16 18 Blood Pressure 127/68 Pulse Oximetry 98 94 Intake/Output Intake/Output: Intake & Output 04/20/20 04/21/20 04/22/20 04/23/20 23:59 23:59 23:59 23:59 Inta
--- NOTE | 2020-04-23 08:56 | PC.NURSE ---
to dialysis via bed
--- NOTE | 2020-04-23 08:57 | PC.NURSE ---
call from Alicia from [facility] to inquire about pt's schedule today and when pt was going to dialysis, I informed her he was going early a.m, she states she will be here about 1300
--- NOTE | 2020-04-23 11:52 | PM.PNNEP ---
Progress Note: A&P Assessment and Plan (1) End stage renal disease: Code(s): N18.6 - End stage renal disease Status: Chronic Assessment and Plan: HD today and continue M/W/F schedule while hospitalized follow electrolytes, volume status, and clearance (2) Altered mental status: Code(s): R41.82 - Altered mental status, unspecified Status: Acute Assessment and Plan: etiology? suspect due medication effect CT brain is negative secondary to pneumoina(?) follow mentation (3) Acute and chronic respiratory failure with hypoxia: Code(s): J96.21 - Acute and chronic respiratory failure with hypoxia Status: Acute Assessment and Plan: suspect multfactorial: - pulmonary edema - pneumonia - cardiomyopathy improvement noted at this time (4) Hypertension: Qualifiers: Hypertension type: essential hypertension Qualified Code(s): I10 - Essential (primary) hypertension Code(s): I10 - Essential (primary) hypertension Status: Chronic Assessment and Plan: relatively stable a bit low with dialysis today amlodipine already decreased follow trend of hemodynamics (5) Anemia: Qualifiers: Anemia type: unspecified type Qualified Code(s): D64.9 - Anemia, unspecified Code(s): D64.9 - Anemia, unspecified Status: Chronic Assessment and Plan: due to ESRD Epogen with HD follow trend of H/H (6) Generalized weakness: Code(s): R53.1 - Weakness Status: Acute Assessment and Plan: possibly related to cardiomyopathy and valvular heart disease along with pulmonary hypertension PT/OT as tolerated Will continue to follow. Subjective Date/time seen: 04/23/20 11:52 Tolerating dialysis at the time of my visit (seen on HD at ~ 11:45AM); issues with hypotension earlier during treatment but BP better s/p with IV albumin and discontinuation of fluid removal with HD treatment; seems a bit sleepy but recognized who I was when seen. Exam Narrative: Exam Narrative: General: WD/WN male in NAD Heart: normal S1 and S2; no rub Lungs: clear to auscultation Abdomen: soft, nontender, nondistended, positive bowel sounds Extremities: no cyanosis or clubbing; no edema Skin: warm and dry Objective Data Vital Signs Vital Signs: Vital Signs Temp Pulse Resp BP Pulse Ox 04/23/20 11:30 64 120/57 L 04/23/20 11:00 60 108/59 L 04/23/20 10:15 63 121/52 L 04/23/20 10:00 69 124/55 L 04/23/20 09:45 78 81/38 L 04/23/20 09:30 70 77/52 L 04/23/20 09:00 62 134/69 04/23/20 08:59 66 115/63 04/23/20 08:53 36.4 C 66 18 117/66 04/23/20 08:02 77 18 94 04/23/20 08:00 62 04/23/20 05:38 36.3 C L 59 L 16 127/68 98 04/23/20 04:00 69 04/23/20 01:50 77 20 04/23/20 01:42 73 20 04/23/20 00:00 71 04/22/20 20:29 65 04/22/20 20:24 36.4 C 65 16 117/68 100 04/22/20 20:00 57 L 04/22/20 19:55 68 20 04/22/20 19:48 96 04/22/20 19:46 66 20 04/22/20 16:00 36.1 C L 61 16 119/56 L 100 04/22/20 12:00 64 Intake/Output Intake/Output: Intake & Output 04/20/20 04/21/20 04/22/20 04/23/20 23:59 23:59 23:59 23:59 Intake Total 850 1975 1300 790 Output Total 2705 2300 550 Balance -1855 -325 750 790 Meds/Results Medications: Active Medications Generic Name Dose Route Start Last Admin Trade Name Freq PRN Reason Stop Dose Admin Acetaminophen 650 mg 04/21/20 23:26 04/21/20 23:41 Acetaminophen 325 Mg Tablet PO 650 mg Q4H PRN Administration Headache Albuterol 2 puff 04/17/20 04:48 04/18/20 16:21 Albuterol Sulfate (*Sp) Aerosol 1 Puff INHALATION 2 puff Q4-6H PRN Administration shortness of breath or wheezing Albuterol 2.5 mg 04/17/20 20:00 04/23/20 08:01 Albuterol Sulfate Neb 2.5 Mg/0.5 Ml Inh
--- NOTE | 2020-04-23 12:18 | PM.IMPN ---
Progress Note: A&P Assessment and Plan (1) Altered mental status: Code(s): R41.82 - Altered mental status, unspecified Status: Acute Assessment and Plan: Improved Has some disorientation Likely due to Ambien and Codeine which have been discontinued. (2) Pneumonia: Code(s): J18.9 - Pneumonia, unspecified organism Status: Acute Assessment and Plan: Doubtful likely fluid overload Blood cx with no growth Will discontinue antibiotics Patient had one episode of fever No sputum production (3) DURGA (obstructive sleep apnea): Code(s): G47.33 - Obstructive sleep apnea (adult) (pediatric) Status: Acute Assessment and Plan: CPAP at night time. (4) Multilobar lung infiltrate: Code(s): R91.8 - Other nonspecific abnormal finding of lung field Status: Acute Assessment and Plan: More in line with fluid overload (5) Acute and chronic respiratory failure with hypoxia: Code(s): J96.21 - Acute and chronic respiratory failure with hypoxia Status: Acute Assessment and Plan: Weaned off of oxygen likely secondary to fluid overload (6) Non-ischemic cardiomyopathy: Code(s): I42.8 - Other cardiomyopathies Status: Acute Assessment and Plan: Patient has been recommended lifevest. But due to AMS it was hold now more oriented will likely be able to follow intructions Stable (7) Cough: Code(s): R05 - Cough Status: Acute Assessment and Plan: Mild intermittent Greatly improved Likely due to fluid overload (8) Suspected 2019 novel coronavirus infection: Code(s): Z20.822 - Contact with and (suspected) exposure to COVID-19 Status: Acute Assessment and Plan: Ruled out. (9) Elevated troponin level: Code(s): R77.8 - Other specified abnormalities of plasma proteins Status: Acute Assessment and Plan: Had work up done R/L cath at [place] No further recs at this time Stable Appreciate Cardiology note (10) End-stage renal disease on hemodialysis: Code(s): N18.6 - End stage renal disease; Z99.2 - Dependence on renal dialysis Status: Chronic Assessment and Plan: Continue HD Doing well. Subjective Date/time seen: States that he is fine 04/23/20 12:18 Review of Systems Review of Systems: Narrative: Patient denies any complains at this time. Constitutional: Comments: no fevers. Respiratory: Comments: mild intermitent cough Gastrointestinal: Comments: constipation. Exam Narrative: Exam Narrative: Lying in bed. Const: General: comfortable and no acute distress Nutritional Appearance: cachectic Orientation/consciousness: oriented to person and oriented to place HENMT: Head: normocephalic Ears: hearing grossly normal bilaterally General nose exam: Normal external nose present Face and sinus: normal facial exam Eyes: General: appearance normal, both eyes and all related structures Pupils: Equal, round and reactive pupils present EOM: EOMs intact bilaterally Neck: Neck: no lymphadenopathy, supple and no JVD Resp: Effort & Inspection: able to speak in complete sentences Auscultation: clear to auscultation bilaterally Cardio: Rate: regular rate Rhythm: regular rhythm GI: GI Palp: Yes Soft to palpation and Yes No hepatosplenomegaly present Skin: Rashes: no rashes Neuro: General: oriented to person, oriented to place and CN's II-XI intact bilaterally Cranial nerves: Yes CN's II-XII intact bilaterally and Yes Equal, round and reactive pupils present Cognition (Neuro): normal cognition Speech: normal speech Motor exam (neuro): 5/5 motor strength present throughout Extrem: General: no pedal edema Objective Data Vital Signs Vital Signs: Vital Signs - 24 hr 04/22/20 16:00 04/22/20 19:46 04/22/20 19:48 Temperature 97 F L Pulse Rate 61 66 Respiratory Rate 16 20 Blood Pressure 119/56 L Pulse Oximetry 100 96 04/22/20 1
--- NOTE | 2020-04-23 12:33 | PC.NURSE ---
pt returned from dialysis vis bed, visiting and updated on pt condition and plan of care
[2020-04-23] MEDS: EPOETIN ALFA-EPBX 10,000 UNITS/ML VIAL 10000 UNITS IV PUSH (12:53)
[2020-04-23] MEDS: guaiFENesin 200 MG/10 ML UDC PO ×3 (13:47→22:00)
--- NOTE | 2020-04-23 13:51 | PC.NURSE ---
pt is sleepy after dialysis, he is having a persistent dry cough, requests he gets cough medicine at this time, administered, pt is not wanting to eat any lunch and does not want to take PO meds at this time, will continue to monitor, no acute distress noted, is very attentive
[2020-04-23] MEDS: calcium polycarbophiL 625 MG TABLET 1250 MG PO ×2 (15:29→17:40)
[2020-04-23] MEDS: SEVELAMER CARBONATE 800 MG TABLET BY MOUTH ×2 (15:30→17:41)
[2020-04-23] MEDS: CHOLECALCIFEROL 1,000 UNITS TABLET 2000 UNITS PO (15:30)
[2020-04-23] MEDS: FAMOTIDINE 20 MG TABLET PO (15:30)
[2020-04-23] MEDS: TAMSULOSIN HCL 0.4 MG CAPSULE PO ×2 (15:30→17:41)
[2020-04-23] MEDS: ATORVASTATIN 10 MG TABLET PO (15:31)
[2020-04-23] MEDS: carvediloL 12.5 MG TABLET BY MOUTH ×2 (15:31→22:00)
[2020-04-23] MEDS: ENOXAPARIN 30 MG/0.3 ML SYRINGE SUB-Q (15:31)
[2020-04-23] MEDS: LOSARTAN POTASSIUM 25 MG TABLET PO (15:31)
[2020-04-23 22:14] LABS: Vancomycin Random 14.9 ug/mL (10-20)
[2020-04-24] VITALS (17 sets, daily range): BP systolic 104–147; BP diastolic 54–71; PULSE 57–101; RESP 18; TEMP 35.9–36.7; O2SAT 91–99
[2020-04-24] MEDS: ALBUTEROL SULFATE NEB 2.5 MG/0.5 ML INH INHALATION ×4 (02:25→19:14)
[2020-04-24] MEDS: IPRATROPIUM BR 0.02% INH SOLN 0.5 MG/2.5 ML VIAL INHALATION ×4 (02:26→19:14)
--- NOTE | 2020-04-24 07:29 | PM.PNCARD ---
Progress Note: A&P Assessment and Plan (1) Elevated troponin level: Code(s): R77.8 - Other specified abnormalities of plasma proteins Status: Acute Assessment and Plan: No clinical symptoms to suggest ACS. Troponin are mildly elevated and essentially flat up to .205. Known cardiomyopathy with no significant CAD in Jan 2020 at [facility]; Diag shows mod disease with 70% ostial stenosis and otherwise 30-50% CAD stenosis in LAD, LCx, RCA territories. (2) Hyperlipidemia: Qualifiers: Hyperlipidemia type: unspecified Qualified Code(s): E78.5 - Hyperlipidemia, unspecified Code(s): E78.5 - Hyperlipidemia, unspecified Status: Chronic Assessment and Plan: On Atorvastatin. (3) Hypertension: Qualifiers: Hypertension type: essential hypertension Qualified Code(s): I10 - Essential (primary) hypertension Code(s): I10 - Essential (primary) hypertension Status: Chronic Assessment and Plan: Controlled on Coreg and Losartan 25 mg daily. (4) End-stage renal disease on hemodialysis: Code(s): N18.6 - End stage renal disease; Z99.2 - Dependence on renal dialysis Status: Chronic (5) Non-ischemic cardiomyopathy: Code(s): I42.8 - Other cardiomyopathies Status: Acute Assessment and Plan: Echo 04/19/20 shows EF 20-25%. Spoke with patient's , Brigid, who states this is not new since it was known at [facility] in Jan 2020. He had cardiac cath in Jan 2020 at [facility] which did not show significant CAD to warrant revascularization. Started Losartan 25 mg daily. Already on Coreg. Discussed Life Vest to prevent sudden cardiac arrest and she is agreeing for it. The rep for Life Vest came out to instruct on how to wear it on 04/20/20, however, it was deemed he was not able to comprehend on how to wear it or use it. He seems more confused today. (6) Pneumonia: Code(s): J18.9 - Pneumonia, unspecified organism Status: Acute Assessment and Plan: CXR shows perihilar infiltrates. On Antibiotics. Managed by hospitalist. Subjective Date/time seen: 04/24/20 07:29 Denies chest pain or sob. Confused, thought he was in [place] and thought year was 1958. Exam Const: General: cooperative, healthy appearing and comfortable Resp: Auscultation: clear to auscultation bilaterally, no crackles, no rales, no rhonchi and no wheezes Cardio: Jugular venous distension: no JVD Rate: regular rate Rhythm: regular rhythm Heart sounds: no murmurs Peripheral pulses: dorsalis pedis present GI: GI Palp: No abdominal tenderness and Yes Soft to palpation Neuro: General: oriented to person, No oriented to place and No oriented to time Extrem: Right lower extremity: no edema Left lower extremity: no edema Objective Data Vital Signs Vital Signs: Vital Signs - 24 hr 04/23/20 08:00 04/23/20 08:02 04/23/20 08:53 Temperature 97.6 F Pulse Rate 62 77 66 Respiratory Rate 18 18 Blood Pressure 117/66 Pulse Oximetry 94 04/23/20 08:59 04/23/20 09:00 04/23/20 09:30 Temperature Pulse Rate 66 62 70 Respiratory Rate Blood Pressure 115/63 134/69 77/52 L Pulse Oximetry 04/23/20 09:45 04/23/20 10:00 04/23/20 10:15 Temperature Pulse Rate 78 69 63 Respiratory Rate Blood Pressure 81/38 L 124/55 L 121/52 L Pulse Oximetry 04/23/20 11:00 04/23/20 11:30 04/23/20 11:45 Temperature Pulse Rate 60 64 66 Respiratory Rate Blood Pressure 108/59 L 120/57 L 140/62 Pulse Oximetry 04/23/20 12:00 04/23/20 12:12 04/23/20 13:50 Temperature 97.6 F Pulse Rate 72 69 67 Respiratory Rate 18 18 Blood Pressure 137/64 Pulse Oximetry 04/23/20 13:55 04/23/20 14:55 04/23/20 15:31 Temperature 97.9 F Pulse Rate 66 75 88 Respiratory Rate 18 19 Blood Pressure 145/72 H Pulse Oximetry 98 04/23/20 16:00 04/23/20 20:00 04/23/20 21:29 Temperature Pulse Rate 77 68 64 Respiratory Rate 19 20 Blood
[2020-04-24] MEDS: LOSARTAN POTASSIUM 25 MG TABLET PO (09:29)
[2020-04-24] MEDS: FAMOTIDINE 20 MG TABLET PO (09:29)
[2020-04-24] MEDS: TAMSULOSIN HCL 0.4 MG CAPSULE PO ×2 (09:29→17:12)
[2020-04-24] MEDS: SEVELAMER CARBONATE 800 MG TABLET BY MOUTH ×3 (09:29→17:12)
[2020-04-24] MEDS: calcium polycarbophiL 625 MG TABLET 1250 MG PO ×2 (09:29→17:12)
[2020-04-24] MEDS: carvediloL 12.5 MG TABLET BY MOUTH ×2 (09:30→21:52)
[2020-04-24] MEDS: ATORVASTATIN 10 MG TABLET PO (09:33)
[2020-04-24] MEDS: CHOLECALCIFEROL 1,000 UNITS TABLET 2000 UNITS PO (09:33)
[2020-04-24] MEDS: guaiFENesin 200 MG/10 ML UDC PO (09:33)
[2020-04-24] MEDS: ENOXAPARIN 30 MG/0.3 ML SYRINGE SUB-Q (09:33)
[2020-04-24] MEDS: FLUTICASONE PROPIONATE 0.05% NA SPR 16 GM BTL (*BKC) 2 SPRAY NASAL (09:34)
--- NOTE | 2020-04-24 10:54 | PM.IMPN ---
Progress Note: A&P Assessment and Plan (1) Altered mental status: Code(s): R41.82 - Altered mental status, unspecified Status: Resolved Assessment and Plan: Likely due to Ambien and Codeine (2) Pneumonia: Code(s): J18.9 - Pneumonia, unspecified organism Status: Acute Assessment and Plan: ordered ct chest before stopping abx, pt still actively coughing- Swallow test negative, previous cxr shows perihilar edema ? infiltrates ctchest ordered to check. (3) DURGA (obstructive sleep apnea): Code(s): G47.33 - Obstructive sleep apnea (adult) (pediatric) Status: Acute Assessment and Plan: CPAP at night time. (4) Multilobar lung infiltrate: Code(s): R91.8 - Other nonspecific abnormal finding of lung field Status: Acute Assessment and Plan: more likley to be fluid EF is 20% ct chest ordered (5) Acute and chronic respiratory failure with hypoxia: Code(s): J96.21 - Acute and chronic respiratory failure with hypoxia Status: Resolved (6) Non-ischemic cardiomyopathy: Code(s): I42.8 - Other cardiomyopathies Status: Acute Assessment and Plan: Patient has been recommended lifevest. Pt seen by cardiology follow recommendations explained EF is 20% add spironolactone (7) Cough: Code(s): R05 - Cough Status: Acute Assessment and Plan: ongoing likely secondary to fluid overload BNP ordered ct chest ordered (8) Suspected 2019 novel coronavirus infection: Code(s): Z20.822 - Contact with and (suspected) exposure to COVID-19 Status: Acute Assessment and Plan: Ruled out. (9) Elevated troponin level: Code(s): R77.8 - Other specified abnormalities of plasma proteins Status: Acute Assessment and Plan: Had work up done R/L cath at [place] (10) End-stage renal disease on hemodialysis: Code(s): N18.6 - End stage renal disease; Z99.2 - Dependence on renal dialysis Status: Chronic Assessment and Plan: Continue HD Doing well. Additional Plan Subjective Date/time seen: 04/24/20 10:54 Interval history: 69-year-old male with known history of end-stage renal disease on dialysis Wednesdays and Fridays who presented to the [facility] for evaluation of generalized weakness and nonproductive cough after getting home today from dialysis. pt is ESRD pt and has ef of 20% awaiting life vest very concerned about cough, bnp ordered, ct chest ordered continue iv abx today and oral Lasix sparingly add spironolactone Review of Systems Review of Systems: All systems reviewed & are unremarkable except as noted in HPI and below Exam Narrative: Exam Narrative: Lying in bed. Const: General: other (Chronically ill looking.) Nutritional Appearance: thin and underweight Orientation/consciousness: oriented to person HENMT: Head: normocephalic Resp: Effort & Inspection: normal respiratory effort, able to speak in complete sentences and Actively coughing dry Auscultation: clear to auscultation bilaterally Cardio: Jugular venous distension: no JVD Rate: regular rate Rhythm: regular rhythm Heart sounds: no murmurs GI: Inspection: normal to inspection Auscultation: normal bowel sounds Skin: General skin exam: normal color and no rashes or lesions noted Rashes: no rashes Wounds: no wounds Neuro: General: oriented to person and CN's II-XI intact bilaterally Speech: normal speech Gait exam (Neuro): Normal gait present Motor exam (neuro): 5/5 motor strength present throughout Sensory Exam: normal sensation Extrem: General: no pedal edema Left upper extremity: shoulder/upper arm ( Fistula in place.) Right lower extremity: lower leg ( Ecchymosis is noted of right lower extremity++ ) Psych: Mental Status: mental status grossly normal Affect: normal affect Objective Data Vital Signs Vital Signs: Vital Signs - 24 hr 04/23/20
--- NOTE | 2020-04-24 11:35 | PM.PNNEP ---
Progress Note: A&P Assessment and Plan (1) End stage renal disease: Code(s): N18.6 - End stage renal disease Status: Chronic Assessment and Plan: HD tomorrow and continue M/W/F schedule while hospitalized follow electrolytes, volume status, and clearance (2) Altered mental status: Code(s): R41.82 - Altered mental status, unspecified Status: Resolved Assessment and Plan: etiology? suspect due medication effect CT brain is negative secondary to pneumoina(?) follow mentation (3) Acute and chronic respiratory failure with hypoxia: Code(s): J96.21 - Acute and chronic respiratory failure with hypoxia Status: Resolved Assessment and Plan: suspect multfactorial: - pulmonary edema - pneumonia - cardiomyopathy improvement noted at this time CT scan of chest for further evaluation (4) Hypertension: Qualifiers: Hypertension type: essential hypertension Qualified Code(s): I10 - Essential (primary) hypertension Code(s): I10 - Essential (primary) hypertension Status: Chronic Assessment and Plan: relatively stable a bit low with dialysis today amlodipine already decreased follow trend of hemodynamics (5) Anemia: Qualifiers: Anemia type: unspecified type Qualified Code(s): D64.9 - Anemia, unspecified Code(s): D64.9 - Anemia, unspecified Status: Chronic Assessment and Plan: due to ESRD Epogen with HD follow trend of H/H (6) Generalized weakness: Code(s): R53.1 - Weakness Status: Acute Assessment and Plan: possibly related to cardiomyopathy and valvular heart disease along with pulmonary hypertension PT/OT as tolerated Will continue to follow. Subjective Date/time seen: 04/24/20 11:35 Tolerated dialysis yesterday but still feels weak and has on/off cough still; no acute distress noted; no issues/events overnight or earlier today; just leaving for CT scan of chest for further evaluation of his ongoing cough. Exam Narrative: Exam Narrative: General: WD/WN male in NAD Heart: normal S1 and S2; no rub Lungs: clear but decreased at bases Abdomen: soft, nontender, nondistended, positive bowel sounds Extremities: no cyanosis or clubbing; no edema Skin: warm and intact Objective Data Vital Signs Vital Signs: Vital Signs Temp Pulse Resp BP Pulse Ox 04/24/20 09:30 64 04/24/20 09:25 68 18 04/24/20 09:11 65 18 02/23/21 04:54 35.9 C L 67 18 147/71 H 99 04/24/20 04:00 74 04/24/20 02:30 80 18 04/24/20 02:29 101 H 18 91 04/24/20 00:00 74 04/23/20 23:50 36.6 C 69 18 139/74 97 04/23/20 22:00 86 04/23/20 21:55 37.1 C 71 18 129/70 97 04/23/20 21:40 68 20 04/23/20 21:29 64 20 91 04/23/20 20:00 68 19 98 04/23/20 16:00 77 04/23/20 15:31 88 04/23/20 14:55 36.6 C 75 19 145/72 H 98 04/23/20 13:55 66 18 04/23/20 13:50 67 18 Intake/Output Intake/Output: Intake & Output 04/21/20 04/22/20 04/23/20 04/24/20 23:59 23:59 23:59 23:59 Intake Total 1975 1300 1380 510 Output Total 2300 550 600 Balance -325 750 780 510 Meds/Results Medications: Active Medications Generic Name Dose Route Start Last Admin Trade Name Freq PRN Reason Stop Dose Admin Acetaminophen 650 mg 04/21/20 23:26 04/21/20 23:41 Acetaminophen 325 Mg Tablet PO 650 mg Q4H PRN Administration Headache Albuterol 2 puff 04/17/20 04:48 04/18/20 16:21 Albuterol Sulfate (*Sp) Aerosol 1 Puff INHALATION 2 puff Q4-6H PRN Administration shortness of breath or wheezing Albuterol 2.5 mg 04/17/20 20:00 04/24/20 09:10 Albuterol Sulfate Neb 2.5 Mg/0.5 Ml Inh INHALATION 2.5 mg Q6HRT JESSA Administration Atorvastatin Calcium 10 mg 04/17/20 09:00 04/24/20 09:33 Atorvastatin 10 Mg Tablet PO 10 mg
--- NOTE | 2020-04-24 11:35 | P.PNNP_ITS ---
Progress Note: A&P Assessment and Plan (1) End stage renal disease: Code(s): N18.6 - End stage renal disease Status: Chronic Assessment and Plan: * HD tomorrow and continue M/W/F schedule while hospitalized * follow electrolytes, volume status, and clearance (2) Altered mental status: Code(s): R41.82 - Altered mental status, unspecified Status: Resolved Assessment and Plan: * etiology? * suspect due medication effect * CT brain is negative * secondary to pneumoina(?) * follow mentation (3) Acute and chronic respiratory failure with hypoxia: Code(s): J96.21 - Acute and chronic respiratory failure with hypoxia Status: Resolved Assessment and Plan: * suspect multfactorial: - pulmonary edema - pneumonia - cardiomyopathy * improvement noted at this time * CT scan of chest for further evaluation (4) Hypertension: Qualifiers: Hypertension type: essential hypertension Qualified Code(s): I10 - Essential (primary) hypertension Code(s): I10 - Essential (primary) hypertension Status: Chronic Assessment and Plan: * relatively stable * a bit low with dialysis today * amlodipine already decreased * follow trend of hemodynamics (5) Anemia: Qualifiers: Anemia type: unspecified type Qualified Code(s): D64.9 - Anemia, unspecified Code(s): D64.9 - Anemia, unspecified Status: Chronic Assessment and Plan: * due to ESRD * Epogen with HD * follow trend of H/H (6) Generalized weakness: Code(s): R53.1 - Weakness Status: Acute Assessment and Plan: * possibly related to cardiomyopathy and valvular heart disease along with pulmonary hypertension * PT/OT as tolerated Will continue to follow. Subjective Date/time seen: 04/24/20 11:35 Tolerated dialysis yesterday but still feels weak and has on/off cough still; no acute distress noted; no issues/events overnight or earlier today; just leaving for CT scan of chest for further evaluation of his ongoing cough. Exam 2 Narrative: Exam Narrative: General: WD/WN male in NAD Heart: normal S1 and S2; no rub Lungs: clear but decreased at bases Abdomen: soft, nontender, nondistended, positive bowel sounds Extremities: no cyanosis or clubbing; no edema Skin: warm and intact Objective Data Vital Signs Vital Signs: Vital Signs Temp Pulse Resp BP Pulse Ox 04/24/20 09:30 64 02/23/21 09:25 68 18 04/24/20 09:11 65 18 04/24/20 04:54 35.9 C L 67 18 147/71 H 99 04/24/20 04:00 74 04/24/20 02:30 80 18 04/24/20 02:29 101 H 18 91 04/24/20 00:00 74 04/23/20 23:50 36.6 C 69 18 139/74 97 04/23/20 22:00 86 04/23/20 21:55 37.1 C 71 18 129/70 97 04/23/20 21:40 68 20 04/23/20 21:29 64 20 91 04/23/20 20:00 68 19 98 04/23/20 16:00 77 04/23/20 15:31 88 04/23/20 14:55 36.6 C 75 19 145/72 H 98 04/23/20 13:55 66 18 04/23/20 13:50 67 18 Intake/Output Intake/Output: Intake & Output 04/21/20 04/22/20 04/23/20 04/24/20 23:59 23:59 23:59 23:59 Intake Total 1975 1300 1380 510 Output Total
[2020-04-24 11:45] LABS: NT Pro B Type Natriuretic Pept > 35000 PG/ML (5-100)
[2020-04-24] MEDS: SPIRONOLACTONE 25 MG TABLET PO (12:53)
--- NOTE | 2020-04-24 13:02 | PCNFU ---
Nutrition Follow-Up Complete: Suboptimal oral intake related to decreased appetite as evidenced by patient statements, intake records. Goal: Patient to consume 50% of meals and supplements or greater. Patient is meeting goal 75% of the time. No new goal at this time. Pt current nutrition is Renal Dialysis Diet with Nepro BID. Last recorded weight is 51.7 kg. Stable weight upon admission. Bowel Motility: + BM 04/23 Labs Reviewed: Hgb 10.3, Hct 31.7, Na 128, GFR 7, BUN 62, Cr 7.3 Meds Noted: Albutein, Proventil, Lipitor, Coreg, Lovenox, Pepcid, Retacrit, Lasix Tablet, Atrovent neb, Lactulose, Cozaar, Flomax, Vitamin D, Aldactone, Renvela, Zosyn, Zofran, Albuterol Additional Notes: When I went to check on patient he was asleep. Spoke with patient's visitor. She reported patient is not eating well. Oral intake documented at 25-90% of most trays. When he has his good days he eats well, but when he has his bad days he will not eat anything. She also said to continue sending Nepro BID providing an additional 425 calories and 19 grams of protein because patient usually consumes most of those. Follow up in 5 days.
--- NOTE | 2020-04-24 13:13 | PCNSR ---
On 04/24/20, the student, Maty Jimenez, provided care and completed [facility] documentation on this patient. I have reviewed the student's documentation and agree with the findings.
[2020-04-25] VITALS (18 sets, daily range): BP systolic 113–142; BP diastolic 55–83; PULSE 52–68; RESP 14–22; TEMP 35.6–37.1; O2SAT 92–99
[2020-04-25] MEDS: ALBUTEROL SULFATE NEB 2.5 MG/0.5 ML INH INHALATION ×2 (02:16→09:09)
[2020-04-25] MEDS: IPRATROPIUM BR 0.02% INH SOLN 0.5 MG/2.5 ML VIAL INHALATION ×2 (02:16→09:09)
--- NOTE | 2020-04-25 07:56 | PM.PNCARD ---
Progress Note: A&P Assessment and Plan (1) Elevated troponin level: Code(s): R77.8 - Other specified abnormalities of plasma proteins Status: Acute Assessment and Plan: No clinical symptoms to suggest ACS. Troponin are mildly elevated and essentially flat up to .205. Known cardiomyopathy with no significant CAD in Jan 2020 at [facility]; Diag shows mod disease with 70% ostial stenosis and otherwise 30-50% CAD stenosis in LAD, LCx, RCA territories. (2) Hyperlipidemia: Qualifiers: Hyperlipidemia type: unspecified Qualified Code(s): E78.5 - Hyperlipidemia, unspecified Code(s): E78.5 - Hyperlipidemia, unspecified Status: Chronic Assessment and Plan: On Atorvastatin. (3) Hypertension: Qualifiers: Hypertension type: essential hypertension Qualified Code(s): I10 - Essential (primary) hypertension Code(s): I10 - Essential (primary) hypertension Status: Chronic Assessment and Plan: Controlled on Coreg and Losartan 25 mg daily. (4) End-stage renal disease on hemodialysis: Code(s): N18.6 - End stage renal disease; Z99.2 - Dependence on renal dialysis Status: Chronic (5) Non-ischemic cardiomyopathy: Code(s): I42.8 - Other cardiomyopathies Status: Acute Assessment and Plan: Echo 04/19/20 shows EF 20-25%. Spoke with patient's , Brigid, who states this is not new since it was known at [facility] in Jan 2020. He had cardiac cath in Jan 2020 at [facility] which did not show significant CAD to warrant revascularization. Started Losartan 25 mg daily. Already on Coreg. Discussed Life Vest to prevent sudden cardiac arrest and she is agreeing for it. The rep for Life Vest came out to instruct on how to wear it on 04/20/20, however, it was deemed he was not able to comprehend on how to wear it or use it. He seems less confused today and getting instructions on Life Vest now. Will recheck echo in 3 months. If EF<35%, will consider ICD implant. (6) Pneumonia: Code(s): J18.9 - Pneumonia, unspecified organism Status: Acute Assessment and Plan: CXR shows perihilar infiltrates. On Antibiotics. Managed by hospitalist. Subjective Date/time seen: 04/25/20 07:56 Denies chest pain or sob. No longer coughing. Getting instructions on Life Vest. More alert and oriented today. Exam Const: General: cooperative, healthy appearing and comfortable Resp: Auscultation: clear to auscultation bilaterally, no crackles, no rales, no rhonchi and no wheezes Cardio: Jugular venous distension: no JVD Rate: regular rate Rhythm: regular rhythm Heart sounds: no murmurs Peripheral pulses: dorsalis pedis present GI: GI Palp: No abdominal tenderness and Yes Soft to palpation Neuro: General: oriented to person, No oriented to place and No oriented to time Extrem: Right lower extremity: no edema Left lower extremity: no edema Objective Data Vital Signs Vital Signs: Vital Signs - 24 hr 04/24/20 08:00 04/24/20 09:11 04/24/20 09:25 Temperature Pulse Rate 64 65 68 Respiratory Rate 18 18 Blood Pressure Pulse Oximetry 04/24/20 09:30 04/24/20 12:00 04/24/20 14:54 Temperature Pulse Rate 64 67 60 Respiratory Rate 18 Blood Pressure Pulse Oximetry 04/24/20 14:59 04/24/20 16:00 04/24/20 19:17 Temperature 97.5 F L Pulse Rate 57 L 58 L 60 Respiratory Rate 18 18 Blood Pressure 104/54 L Pulse Oximetry 97 04/24/20 19:27 04/24/20 21:52 04/24/20 22:00 Temperature 98.1 F Pulse Rate 63 77 73 Respiratory Rate 18 18 Blood Pressure 130/68 Pulse Oximetry 96 04/25/20 02:18 04/25/20 03:51 Temperature Pulse Rate 58 L 59 L Respiratory Rate 18 18 Blood Pressure Pulse Oximetry Intake/Output Intake/Output: Intake & Output 04/22/20 04/23/20 04/24/20 04/25/20 23:59 23:59 23:59 23:59 Intake Total 1300 1380 1390 50 Output Total 550 600 150 Balance 937 463 6018 50 Meds/Result
[2020-04-25 08:34] LABS: Albumin Level 3.3 g/dL (3.5-5.1); Anion Gap 11 mmol/L (8-16); Blood Urea Nitrogen 44 mg/dL (9-20); Calcium 10.3 mg/dL (8.4-10.2); Carbon Dioxide 29 mmol/L (22-30); Chloride 93 mmol/L (98-107); Estimated CRCL calculation 7 ml/min; Estimated Glomerular Filt Rate 8; Glucose 95 mg/dL (75-110); Phosphorus 5.5 mg/dL (2.5-4.5); Potassium 4.2 mmol/L (3.4-5.0); Sodium 133 mmol/L (137-145)
[2020-04-25] MEDS: ENOXAPARIN 30 MG/0.3 ML SYRINGE SUB-Q (09:00)
[2020-04-25] MEDS: carvediloL 12.5 MG TABLET BY MOUTH ×2 (09:00→21:44)
[2020-04-25] MEDS: CHOLECALCIFEROL 1,000 UNITS TABLET 2000 UNITS PO (09:01)
[2020-04-25] MEDS: SEVELAMER CARBONATE 800 MG TABLET BY MOUTH ×3 (09:02→16:49)
[2020-04-25] MEDS: LOSARTAN POTASSIUM 25 MG TABLET PO (09:02)
[2020-04-25] MEDS: SPIRONOLACTONE 25 MG TABLET PO (09:02)
[2020-04-25] MEDS: ATORVASTATIN 10 MG TABLET PO (09:02)
[2020-04-25] MEDS: calcium polycarbophiL 625 MG TABLET 1250 MG PO ×2 (09:03→16:49)
[2020-04-25] MEDS: TAMSULOSIN HCL 0.4 MG CAPSULE PO ×2 (09:03→16:49)
[2020-04-25] MEDS: FAMOTIDINE 20 MG TABLET PO (09:03)
[2020-04-25] MEDS: guaiFENesin 200 MG/10 ML UDC PO (09:04)
--- NOTE | 2020-04-25 12:58 | PM.DS ---
DS: Admitting Diagnosis Admitting Diagnosis Admitting Diagnosis: Shortness of breath DS: Discharge Diagnosis Discharge Diagnosis (1) Altered mental status: Code(s): R41.82 - Altered mental status, unspecified Status: Resolved Assessment and Plan: Likely due to Ambien and Codeine (2) Pneumonia: Code(s): J18.9 - Pneumonia, unspecified organism Status: Acute Assessment and Plan: Ordered CT chest before stopping abx, pt still actively coughing possible gerd or secondary to mild pulmonary edema (3) DURGA (obstructive sleep apnea): Code(s): G47.33 - Obstructive sleep apnea (adult) (pediatric) Status: Acute Assessment and Plan: CPAP at night time pt did not tolerate it. If pt wants cpap at home needs to have formal sleep study. (4) Multilobar lung infiltrate: Code(s): R91.8 - Other nonspecific abnormal finding of lung field Status: Resolved Assessment and Plan: Pt was given iv abx in the hospital, wcc normal. no fever. (5) Acute and chronic respiratory failure with hypoxia: Code(s): J96.21 - Acute and chronic respiratory failure with hypoxia Status: Resolved Assessment and Plan: Secondary to CHF and CAP (6) Non-ischemic cardiomyopathy: Code(s): I42.8 - Other cardiomyopathies Status: Acute Assessment and Plan: Patient has been recommended lifevest. Pt seen by cardiology follow recommendations explained EF is 20% added spironolactone lasix ordered at use at home dose changed in hospital. (7) Cough: Code(s): R05 - Cough Status: Acute Assessment and Plan: ongoing likely secondary to fluid overload BNP ordered ct chest ordered prior to discharge (8) Suspected 2019 novel coronavirus infection: Code(s): Z20.822 - Contact with and (suspected) exposure to COVID-19 Status: Acute Assessment and Plan: Ruled out. (9) Elevated troponin level: Code(s): R77.8 - Other specified abnormalities of plasma proteins Status: Acute Assessment and Plan: Had work up done R/L cath at [place] (10) End-stage renal disease on hemodialysis: Code(s): N18.6 - End stage renal disease; Z99.2 - Dependence on renal dialysis Status: Chronic Assessment and Plan: Continue HD. Doing well. To continue dialysis sessions as outpatient. DS: Summary Hospital Course Hospital Course: 69-year-old male with known history of end-stage renal disease on dialysis Wednesdays and Fridays who presented to the hospital [facility] for evaluation of generalized weakness and nonproductive cough after getting home today from dialysis. Pt is ESRD pt and has EF of 20% awaiting life vest. Partner very concerned about cough, bnp ordered, ct chest ordered, cough likely secondary to GERD or mild pulmonary edema. Time Spent with Patient Time attestation: Total time spent providing and/or coordinating discharge services:40 minutes on day of discharge Exam Narrative: Exam Narrative: Lying in bed. Const: General: other (Chronically ill looking.) Nutritional Appearance: thin and underweight Orientation/consciousness: oriented to person HENMT: Head: normocephalic Resp: Effort & Inspection: normal respiratory effort, able to speak in complete sentences and Actively coughing dry Auscultation: clear to auscultation bilaterally Cardio: Jugular venous distension: no JVD Rate: regular rate Rhythm: regular rhythm Heart sounds: no murmurs GI: Inspection: normal to inspection Auscultation: normal bowel sounds Skin: General skin exam: normal color and no rashes or lesions noted Rashes: no rashes Wounds: no wounds Neuro: General: oriented to person and CN's II-XI intact bilaterally Speech: normal speech Gait exam (Neuro): Normal gait present Motor exam (neuro): 5/5 motor strength present throughout Sensory Exam: normal sensation Extrem: General: no pedal edema Lef
--- NOTE | 2020-04-25 14:26 | PC.NURSE ---
patient brought to dialysis
--- NOTE | 2020-04-25 14:38 | PC.NURSE ---
On 04/25/20, the student, [Gale Delacruz ], provided care and completed [facility] documentation on this patient. I have reviewed the student's documentation and agree with the findings.
--- NOTE | 2020-04-25 14:57 | P.PNNP_ITS ---
Progress Note: A&P Assessment and Plan (1) End stage renal disease: Code(s): N18.6 - End stage renal disease Status: Chronic Assessment and Plan: * HD today and continue M/W/F schedule while hospitalized * follow electrolytes, volume status, and clearance (2) Altered mental status: Code(s): R41.82 - Altered mental status, unspecified Status: Resolved Assessment and Plan: * etiology? * slow improvement noted * suspect due medication effect * CT brain is negative * secondary to pneumoina(?) * follow mentation (3) Acute and chronic respiratory failure with hypoxia: Code(s): J96.21 - Acute and chronic respiratory failure with hypoxia Status: Resolved Assessment and Plan: * suspect multfactorial: - pulmonary edema - pneumonia - cardiomyopathy * improvement noted at this time * CT scan of chest for further evaluation (4) Hypertension: Qualifiers: Hypertension type: essential hypertension Qualified Code(s): I10 - Essential (primary) hypertension Code(s): I10 - Essential (primary) hypertension Status: Chronic Assessment and Plan: * relatively stable * a bit low with dialysis today * amlodipine already decreased * follow trend of hemodynamics (5) Anemia: Qualifiers: Anemia type: unspecified type Qualified Code(s): D64.9 - Anemia, unspecified Code(s): D64.9 - Anemia, unspecified Status: Chronic Assessment and Plan: * due to ESRD * Epogen with HD * follow trend of H/H (6) Generalized weakness: Code(s): R53.1 - Weakness Status: Acute Assessment and Plan: * possibly related to cardiomyopathy and valvular heart disease along with pulmonary hypertension * PT/OT as tolerated Will continue to follow. Subjective Date/time seen: 04/25/20 14:57 Tolerating dialysis treatment at the time of my visit (seen on HD at 2:50PM); seems a bit restless but in no acute distress; no other acute issues or problems voiced; no events overnight or earlier this AM. Exam Narrative: Exam Narrative: General: WD/WN male in NAD Heart: normal S1 and S2; no rub Lungs: clear but decreased at bases Abdomen: soft, nontender, nondistended, positive bowel sounds Extremities: no cyanosis or clubbing; no edema Skin: no rash Objective Data Vital Signs Vital Signs: Vital Signs Temp Pulse Resp BP Pulse Ox 04/25/20 13:44 35.8 C L 66 22 H 132/55 L 98 04/25/20 09:31 67 18 04/25/20 09:20 66 18 95 04/25/20 09:00 68 04/25/20 08:00 35.6 C L 56 L 14 121/59 L 99 04/25/20 06:00 36.4 C 68 20 142/58 H 98 04/25/20 03:51 59 L 18 04/25/20 02:18 58 L 18 04/24/20 22:00 36.7 C 73 18 130/68 96 04/24/20 21:52 77 04/24/20 19:27 63 18 04/24/20 19:17 60 18 Intake/Output Intake/Output: Intake & Output 04/22/20 04/23/20 04/24/20 04/25/20 23:59 23:59 23:59 23:59 Intake Total 1300 1380 1390 740 Output Total 550 600 150 150 Balance 112 459 8154 590 Meds/Results Medications: Active Medications Generic Name Dose Route Start Last Admin Trade Name Freq PRN Reason Stop Dose
--- NOTE | 2020-04-25 14:57 | PM.PNNEP ---
Progress Note: A&P Assessment and Plan (1) End stage renal disease: Code(s): N18.6 - End stage renal disease Status: Chronic Assessment and Plan: HD today and continue M/W/F schedule while hospitalized follow electrolytes, volume status, and clearance (2) Altered mental status: Code(s): R41.82 - Altered mental status, unspecified Status: Resolved Assessment and Plan: etiology? slow improvement noted suspect due medication effect CT brain is negative secondary to pneumoina(?) follow mentation (3) Acute and chronic respiratory failure with hypoxia: Code(s): J96.21 - Acute and chronic respiratory failure with hypoxia Status: Resolved Assessment and Plan: suspect multfactorial: - pulmonary edema - pneumonia - cardiomyopathy improvement noted at this time CT scan of chest for further evaluation (4) Hypertension: Qualifiers: Hypertension type: essential hypertension Qualified Code(s): I10 - Essential (primary) hypertension Code(s): I10 - Essential (primary) hypertension Status: Chronic Assessment and Plan: relatively stable a bit low with dialysis today amlodipine already decreased follow trend of hemodynamics (5) Anemia: Qualifiers: Anemia type: unspecified type Qualified Code(s): D64.9 - Anemia, unspecified Code(s): D64.9 - Anemia, unspecified Status: Chronic Assessment and Plan: due to ESRD Epogen with HD follow trend of H/H (6) Generalized weakness: Code(s): R53.1 - Weakness Status: Acute Assessment and Plan: possibly related to cardiomyopathy and valvular heart disease along with pulmonary hypertension PT/OT as tolerated Will continue to follow. Subjective Date/time seen: 04/25/20 14:57 Tolerating dialysis treatment at the time of my visit (seen on HD at 2:50PM); seems a bit restless but in no acute distress; no other acute issues or problems voiced; no events overnight or earlier this AM. Exam Narrative: Exam Narrative: General: WD/WN male in NAD Heart: normal S1 and S2; no rub Lungs: clear but decreased at bases Abdomen: soft, nontender, nondistended, positive bowel sounds Extremities: no cyanosis or clubbing; no edema Skin: no rash Objective Data Vital Signs Vital Signs: Vital Signs Temp Pulse Resp BP Pulse Ox 04/25/20 13:44 35.8 C L 66 22 H 132/55 L 98 04/25/20 09:31 67 18 04/25/20 09:20 66 18 95 04/25/20 09:00 68 04/25/20 08:00 35.6 C L 56 L 14 121/59 L 99 04/25/20 06:00 36.4 C 68 20 142/58 H 98 04/25/20 03:51 59 L 18 04/25/20 02:18 58 L 18 04/24/20 22:00 36.7 C 73 18 130/68 96 04/24/20 21:52 77 04/24/20 19:27 63 18 04/24/20 19:17 60 18 Intake/Output Intake/Output: Intake & Output 04/22/20 04/23/20 04/24/20 04/25/20 23:59 23:59 23:59 23:59 Intake Total 1300 1380 1390 740 Output Total 550 600 150 150 Balance 061 335 6050 590 Meds/Results Medications: Active Medications Generic Name Dose Route Start Last Admin Trade Name Freq PRN Reason Stop Dose Admin Acetaminophen 650 mg 04/21/20 23:26 04/25/20 16:48 Acetaminophen 325 Mg Tablet PO 650 mg Q4H PRN Administration Headache Albuterol 2 puff 04/17/20 04:48 04/18/20 16:21 Albuterol Sulfate (*Sp) Aerosol 1 Puff INHALATION 2 puff Q4-6H PRN Administration shortness of breath or wheezing Atorvastatin Calcium 10 mg 04/17/20 09:00 04/25/20 09:02 Atorvastatin 10 Mg Tablet PO 10 mg DAILY JESSA Administration Bupropion HCl 150 mg 04/23/20 21:00 04/25/20 09:01 Bupropion Hcl Sr (12hr) 150 Mg Tab PO 150 mg Q12HR JESSA Administration Calcium Polycarbophil 1,250 mg 04/17/20 09:00 04/25/20 16:49 Calcium Polycarbophil 625 Mg Tablet PO 1,250 mg BID JESSA Administration Carvedilol 12.5
[2020-04-25] MEDS: ACETAMINOPHEN 325 MG TABLET 650 MG PO (16:48)
--- NOTE | 2020-04-25 20:54 | PCHDNOTE ---
This patient gave me problems last time I did his treatment. Pt was no different this time. I did ask fofr a sitter, and or his could sit with him while he gets his treatment..
[2020-04-25 22:12] LABS: Vancomycin Random 19.3 ug/mL (10-20)
[2020-04-26] VITALS (16 sets, daily range): BP systolic 92–145; BP diastolic 50–72; PULSE 53–68; RESP 16–18; TEMP 36.1–37; O2SAT 95
[2020-04-26 05:45] LABS: Estimated CRCL calculation 7 ml/min; Estimated Glomerular Filt Rate 8
--- NOTE | 2020-04-26 08:02 | PM.IMPN ---
Progress Note: A&P Assessment and Plan (1) Altered mental status: Code(s): R41.82 - Altered mental status, unspecified Status: Resolved Assessment and Plan: Likely due to Ambien and Codeine (2) Pneumonia: Code(s): J18.9 - Pneumonia, unspecified organism Status: Resolved Assessment and Plan: Coughing improved (3) DURGA (obstructive sleep apnea): Code(s): G47.33 - Obstructive sleep apnea (adult) (pediatric) Status: Acute Assessment and Plan: CPAP at night time pt did not tolerate it. If pt wants cpap at home needs to have formal sleep study. (4) Multilobar lung infiltrate: Code(s): R91.8 - Other nonspecific abnormal finding of lung field Status: Resolved Assessment and Plan: Pt was given iv abx in the hospital, wcc normal. no fever. (5) Acute and chronic respiratory failure with hypoxia: Code(s): J96.21 - Acute and chronic respiratory failure with hypoxia Status: Resolved Assessment and Plan: Secondary to CHF and CAP (6) Non-ischemic cardiomyopathy: Code(s): I42.8 - Other cardiomyopathies Status: Acute Assessment and Plan: Patient has been recommended lifevest. Pt seen by cardiology follow recommendations explained EF is 20% added spironolactone lasix ordered at use at home dose changed in hospital. (7) Cough: Code(s): R05 - Cough Status: Acute Assessment and Plan: ongoing likely secondary to fluid overload BNP ordered ct chest ordered prior to discharge (8) Suspected 2019 novel coronavirus infection: Code(s): Z20.822 - Contact with and (suspected) exposure to COVID-19 Status: Acute Assessment and Plan: Ruled out. (9) Elevated troponin level: Code(s): R77.8 - Other specified abnormalities of plasma proteins Status: Acute Assessment and Plan: Had work up done R/L cath at [place] (10) End-stage renal disease on hemodialysis: Code(s): N18.6 - End stage renal disease; Z99.2 - Dependence on renal dialysis Status: Chronic Assessment and Plan: Continue HD. Doing well. To continue dialysis sessions as outpatient. Subjective Date/time seen: 04/25/20 08:02 Interval history: 69-year-old male with known history of end-stage renal disease on dialysis Wednesdays and Fridays who presented to the [facility] for evaluation of generalized weakness and nonproductive cough after getting home today after dialysis. pt is ESRD pt and has ef of 20% awaiting life vest. Review of Systems Review of Systems: All systems reviewed & are unremarkable except as noted in HPI and below Exam Narrative: Exam Narrative: Lying in bed. Const: General: other (Chronically ill looking.) Nutritional Appearance: thin and underweight Orientation/consciousness: oriented to person HENMT: Head: normocephalic Resp: Effort & Inspection: normal respiratory effort, able to speak in complete sentences and Actively coughing dry Auscultation: clear to auscultation bilaterally Cardio: Jugular venous distension: no JVD Rate: regular rate Rhythm: regular rhythm Heart sounds: no murmurs GI: Inspection: normal to inspection Auscultation: normal bowel sounds Skin: General skin exam: normal color and no rashes or lesions noted Rashes: no rashes Wounds: no wounds Neuro: General: oriented to person and CN's II-XI intact bilaterally Speech: normal speech Gait exam (Neuro): Normal gait present Motor exam (neuro): 5/5 motor strength present throughout Sensory Exam: normal sensation Extrem: General: no pedal edema Left upper extremity: shoulder/upper arm ( Fistula in place.) Right lower extremity: lower leg ( Ecchymosis is noted of right lower extremity++ ) Psych: Mental Status: mental status grossly normal Affect: normal affect Objective Data Vital Signs Vital Signs: Vital Signs - 24 hr 04/25/20 09:00 04/25/20 09:20
[2020-04-26] MEDS: ENOXAPARIN 30 MG/0.3 ML SYRINGE SUB-Q (09:05)
[2020-04-26] MEDS: ATORVASTATIN 10 MG TABLET PO (09:06)
[2020-04-26] MEDS: TAMSULOSIN HCL 0.4 MG CAPSULE PO (09:06)
[2020-04-26] MEDS: SEVELAMER CARBONATE 800 MG TABLET BY MOUTH (09:06)
[2020-04-26] MEDS: LOSARTAN POTASSIUM 25 MG TABLET PO (09:06)
[2020-04-26] MEDS: carvediloL 12.5 MG TABLET BY MOUTH (09:06)
[2020-04-26] MEDS: calcium polycarbophiL 625 MG TABLET 1250 MG PO (09:06)
[2020-04-26] MEDS: SPIRONOLACTONE 25 MG TABLET PO (09:06)
[2020-04-26] MEDS: CHOLECALCIFEROL 1,000 UNITS TABLET 2000 UNITS PO (09:06)
[2020-04-26] MEDS: FAMOTIDINE 20 MG TABLET PO (09:17)
--- NOTE | 2020-04-26 09:38 | PC.NURSE ---
Patient to dialysis via bed.
--- NOTE | 2020-04-26 10:09 | PCOTNOTE ---
Patient out of the room this A.M. Patient is in dialysis this A.M. Will check back at a later time.
--- NOTE | 2020-04-26 10:31 | PM.PNCARD ---
Progress Note: A&P Assessment and Plan (1) Elevated troponin level: Code(s): R77.8 - Other specified abnormalities of plasma proteins Status: Acute Assessment and Plan: No clinical symptoms to suggest ACS. Troponin are mildly elevated and essentially flat up to .205. Known cardiomyopathy with no significant CAD in Jan 2020 at [facility]; Diag shows mod disease with 70% ostial stenosis and otherwise 30-50% CAD stenosis in LAD, LCx, RCA territories. (2) Hyperlipidemia: Qualifiers: Hyperlipidemia type: unspecified Qualified Code(s): E78.5 - Hyperlipidemia, unspecified Code(s): E78.5 - Hyperlipidemia, unspecified Status: Chronic Assessment and Plan: On Atorvastatin. (3) Hypertension: Qualifiers: Hypertension type: essential hypertension Qualified Code(s): I10 - Essential (primary) hypertension Code(s): I10 - Essential (primary) hypertension Status: Chronic Assessment and Plan: Controlled on Coreg and Losartan 25 mg daily. (4) End-stage renal disease on hemodialysis: Code(s): N18.6 - End stage renal disease; Z99.2 - Dependence on renal dialysis Status: Chronic (5) Non-ischemic cardiomyopathy: Code(s): I42.8 - Other cardiomyopathies Status: Acute Assessment and Plan: Echo 04/19/20 shows EF 20-25%. Spoke with patient's , Brigid, who states this is not new since it was known at [facility] in Jan 2020. He had cardiac cath in Jan 2020 at [facility] which did not show significant CAD to warrant revascularization. Started Losartan 25 mg daily. Already on Coreg. Discussed Life Vest to prevent sudden cardiac arrest and she is agreeing for it. The rep for Life Vest came out to instruct on how to wear it on 04/20/20, however, it was deemed he was not able to comprehend on how to wear it or use it. Instructions given on how to wear Life Vest with his present. Will recheck echo in 3 months. If EF<35%, will consider ICD implant. (6) Pneumonia: Code(s): J18.9 - Pneumonia, unspecified organism Status: Resolved Assessment and Plan: CXR shows perihilar infiltrates. On Antibiotics. Managed by hospitalist. Subjective Date/time seen: 04/26/20 10:31 Denies chest pain or sob. He thinks he's in [place] and does not know the year. Exam Const: General: cooperative, healthy appearing and comfortable Resp: Auscultation: clear to auscultation bilaterally, no crackles, no rales, no rhonchi and no wheezes Cardio: Jugular venous distension: no JVD Rate: regular rate Rhythm: regular rhythm Heart sounds: no murmurs Peripheral pulses: dorsalis pedis present GI: GI Palp: No abdominal tenderness and Yes Soft to palpation Neuro: General: oriented to person, No oriented to place and No oriented to time Extrem: Right lower extremity: no edema Left lower extremity: no edema Objective Data Vital Signs Vital Signs: Vital Signs - 24 hr 04/25/20 13:44 04/25/20 14:24 04/25/20 14:30 Temperature 96.5 F L 98.7 F Pulse Rate 66 61 57 L Respiratory Rate 22 H 18 Blood Pressure 132/55 L 138/83 127/63 Pulse Oximetry 98 04/25/20 14:45 04/25/20 15:00 04/25/20 15:15 Temperature Pulse Rate 56 L 58 L 52 L Respiratory Rate Blood Pressure 120/64 124/72 113/78 Pulse Oximetry 04/25/20 15:30 04/25/20 15:45 04/25/20 21:12 Temperature 98.6 F 97.1 F L Pulse Rate 56 L 61 66 Respiratory Rate 18 16 Blood Pressure 120/72 138/83 132/72 Pulse Oximetry 92 04/25/20 21:44 04/26/20 05:00 04/26/20 09:06 Temperature 97.4 F L Pulse Rate 66 62 68 Respiratory Rate 16 Blood Pressure 145/61 H Pulse Oximetry 95 Intake/Output Intake/Output: Intake & Output 04/23/20 04/24/20 04/25/20 04/26/20 23:59 23:59 23:59 23:59 Intake Total 1380 1390 1140 380 Output Total 571 298 2560 Balance 780 1240 -30 380 Meds/Results Medications: Active Medications Generic Name Dose Route Start Last Admin
[2020-04-26] MEDS: EPOETIN ALFA-EPBX 10,000 UNITS/ML VIAL 10000 UNITS IV PUSH (11:19)
--- NOTE | 2020-04-26 13:00 | PM.PNNEP ---
Progress Note: A&P Assessment and Plan (1) End stage renal disease: Code(s): N18.6 - End stage renal disease Status: Chronic Assessment and Plan: HD today and resume M/W/ schedule tomorrow follow electrolytes, volume status, and clearance (2) Altered mental status: Code(s): R41.82 - Altered mental status, unspecified Status: Resolved Assessment and Plan: resolved suspect due medication effect CT brain is negative follow mentation (3) Acute and chronic respiratory failure with hypoxia: Code(s): J96.21 - Acute and chronic respiratory failure with hypoxia Status: Resolved Assessment and Plan: suspect multfactorial: - pulmonary edema - pneumonia - cardiomyopathy improvement noted at this time CT scan of chest results noted/reviewed (4) Hypertension: Qualifiers: Hypertension type: essential hypertension Qualified Code(s): I10 - Essential (primary) hypertension Code(s): I10 - Essential (primary) hypertension Status: Chronic Assessment and Plan: relatively stable follow trend of hemodynamics (5) Anemia: Qualifiers: Anemia type: unspecified type Qualified Code(s): D64.9 - Anemia, unspecified Code(s): D64.9 - Anemia, unspecified Status: Chronic Assessment and Plan: due to ESRD Epogen with HD follow trend of H/H (6) Generalized weakness: Code(s): R53.1 - Weakness Status: Acute Assessment and Plan: possibly related to cardiomyopathy and valvular heart disease along with pulmonary hypertension PT/OT as tolerated Will continue to follow - not opposed to discharge if otherwise medically stable. Subjective Date/time seen: 04/26/20 13:00 Only received about 1 hour of treatment yesterday as he apparent tried to get out of bed while still connected to dialysis machine resulting in dislodgement of one of his needles; received 2 hours of dialysis earlier this AM to make-up for what he missed yesterday; no apparent distress noted and happy about going home today. Exam Narrative: Exam Narrative: General: WD/WN male in NAD Heart: normal S1 and S2; no rub Lungs: clear but decreased at bases Abdomen: soft, nontender, nondistended, positive bowel sounds Extremities: no cyanosis or clubbing; no edema Skin: no nodules Objective Data Vital Signs Vital Signs: Vital Signs Temp Pulse Resp BP Pulse Ox 04/26/20 12:15 36.1 C L 63 16 138/72 02/25/21 12:07 65 121/71 04/26/20 12:00 61 134/72 04/26/20 11:45 64 125/70 04/26/20 11:30 55 L 119/65 04/26/20 11:15 60 113/64 04/26/20 11:00 61 109/65 04/26/20 10:45 62 121/66 04/26/20 10:30 54 L 106/59 L 04/26/20 10:15 60 102/50 L 04/26/20 10:00 53 L 92/53 L 04/26/20 09:52 61 99/58 L 04/26/20 09:40 36.3 C L 56 L 18 110/62 04/26/20 09:06 68 04/26/20 05:00 36.3 C L 62 16 145/61 H 95 04/25/20 21:44 66 04/25/20 21:12 36.2 C L 66 16 132/72 92 04/25/20 15:45 37.0 C 61 18 138/83 04/25/20 15:30 56 L 120/72 04/25/20 15:15 52 L 113/78 04/25/20 15:00 58 L 124/72 04/25/20 14:45 56 L 120/64 04/25/20 14:30 57 L 127/63 04/25/20 14:24 37.1 C 61 18 138/83 04/25/20 13:44 35.8 C L 66 22 H 132/55 L 98 Intake/Output Intake/Output: Intake & Output 04/23/20 04/24/20 04/25/20 04/26/20 23:59 23:59 23:59 23:59 Intake Total 1380 1390 1140 380 Output Total 128 636 2511 500 Balance 780 1240 -30 -120 Meds/Results Medications: Active Medications Generic Name Dose Route Start Last Admin Trade Name Freq PRN Reason Stop Dose Admin Acetaminophen 650 mg 04/21/20 23:26 04/25/20 16:48 Acetaminophen 325 Mg Tablet PO 650 mg Q4H PRN Administration Headache Albuterol 2 puff 04/17/20 04:48 04/18/20 16:21 Albuterol Sulfate
== END 2020-04-26 13:41 | disposition home or self-care (01) | DRG 291 ==
LOC: ANHED 21:52 → ANHIMU 04-17 → ANH2MED 04-19 12:54 → ANHIMU 04-27 13:08
PROVIDERS: Emergency Medicine; Internal Medicine; Internal Medicine Nephrology; Admitting Provider Family Medicine; Emergency Provider Emergency Medicine; PCP Internal Medicine; Visit Provider Family Medicine
DX: I13.2 Hypertensive heart and chronic kidney disease with heart failure and with stage 5 chronic kidney disease, or end stage renal disease (principal); N18.6 End stage renal disease; J96.21 Acute and chronic respiratory failure with hypoxia; J18.9 Pneumonia, unspecified organism; Z94.0 Kidney transplant status; T86.12 Kidney transplant failure; I50.9 Heart failure, unspecified; I42.8 Other cardiomyopathies; Z20.822 Contact with and (suspected) exposure to COVID-19; D63.1 Anemia in chronic kidney disease; N40.0 Benign prostatic hyperplasia without lower urinary tract symptoms; F32.9 Major depressive disorder, single episode, unspecified; K21.9 Gastro-esophageal reflux disease without esophagitis; G43.909 Migraine, unspecified, not intractable, without status migrainosus; N25.0 Renal osteodystrophy; E55.9 Vitamin D deficiency, unspecified; R79.89 Other specified abnormal findings of blood chemistry; R41.82 Altered mental status, unspecified; T40.2X5A Adverse effect of other opioids, initial encounter; T42.6X5A Adverse effect of other antiepileptic and sedative-hypnotic drugs, initial encounter; Z72.820 Sleep deprivation; R91.8 Other nonspecific abnormal finding of lung field; G47.33 Obstructive sleep apnea (adult) (pediatric); G89.29 Other chronic pain; M54.5 Low back pain; E78.5 Hyperlipidemia, unspecified; Z99.2 Dependence on renal dialysis; Z86.73 Personal history of transient ischemic attack (TIA), and cerebral infarction without residual deficits; Z85.820 Personal history of malignant melanoma of skin; Z86.711 Personal history of pulmonary embolism; Z98.42 Cataract extraction status, left eye; Z98.41 Cataract extraction status, right eye
CPT/HCPCS: 36415; 51701; 70450; 71045; 71046; 71250; 80048; 80053; 80069; 80202; 81001; 82140; 82533; 82565; 82607; 82746; 82948; 83605; 83880; 84443; 84484; 85025; 85027; 87040; 87804; 92611; 93005; 93306; 94640; 94660; 96372; 97161; 97165; 99285; A9270; C9803; G0257; G0378; J1650; J2543; J3370; J7030; Q5106; U0003; U0005

== ENCOUNTER 2020-07-16 13:57 | Outpatient (CLI) | payer MEDICARE, OTHER, SELFPAY ==
--- NOTE | 2020-07-16 14:05 | ECHO_ITS ---
Patient Info Name: Atilio Sarmiento Age: 69 years : 1950 Gender: Male Ht: 66 in Wt: 135 lbs BSA: 1.69 m2 HR: 62 bpm BP: 127 / 69 mmHg Technical Quality: Good Exam Date: 07/16/2020 2:15 PM Exam Location: [facility] Patient Status: Outpatient Admit Date: 07/16/2020 Staff Ordering Physician: Onofre Aly DO Manager Policy: Aron Montelongo RDCS, RT Attending Provider: Onofre Aly DO Referring Physician: Jermain MEADOWS; Exam Type: CA echo doppler color flow Study Info Indications I42.8 - Other cardiomyopathies Complete two-dimensional, color flow and Doppler transthoracic echocardiogram is performed. Summary 1. Complete two-dimensional, color flow and Doppler transthoracic echocardiogram is performed. 2. Left ventricular chamber dimension is severely enlarged. 3. Left ventricular systolic function is moderately reduced, estimated at 40-45%. 4. There is moderately increased left ventricular wall thickness. 5. The left ventricular diastolic function is grade I diastolic dysfunction. 6. E/e' 18 is elevated. 7. Left atrial chamber dimension is severely enlarged. 8. There is mild aortic valve sclerosis. 9. There is mild to moderate aortic valve regurgitation. 10. There is mild to moderate mitral valve regurgitation. 11. There is mild tricuspid valve regurgitation. 12. Mild pulmonary hypertension, estimated pulmonary arterial systolic pressure is 40 mmHg. 13. There is trace pulmonic regurgitation. 14. There is moderate size pericardial effusion on right side and small size pericardial effusion in other areas around the heart. No cardiac tamponade. Left Ventricle E/e' 18 is elevated. Left ventricular chamber dimension is severely enlarged. Left ventricular systolic function is moderately reduced, estimated at 40-45%. There is moderately increased left ventricular wall thickness. The left ventricular diastolic function is grade I diastolic dysfunction. Right Ventricle Right ventricular systolic function is normal with normal TAPSE 2.2 cm. Right ventricular chamber dimension is normal. Left Atria Left atrial chamber dimension is severely enlarged. Right Atria Right atrial chamber dimension is normal. Aortic Valve The aortic valve is trileaflet. There is mild aortic valve sclerosis. There is no aortic valve stenosis. There is mild to moderate aortic valve regurgitation. Pulmonic Valve There is trace pulmonic regurgitation. Mitral Valve There is no mitral valve stenosis. There is mild to moderate mitral valve regurgitation. Tricuspid Valve There is mild tricuspid valve regurgitation. Mild pulmonary hypertension, estimated pulmonary arterial systolic pressure is 40 mmHg. Pericardium/Pleural There is moderate size pericardial effusion on right side and small size pericardial effusion in other areas around the heart. No cardiac tamponade. Inferior Vena Cava Normal inferior vena cava with >50% collapse upon inspiration consistent with normal right atrial pressure, 5 mmHg. Aorta The aortic root size at the sinus of Valsalva is normal. Left Ventricular Outflow Tract Name Value Normal LVOT 2D LVOT Diameter 2.1 cm LVOT Doppler
== END 2020-07-16 13:58 | disposition home or self-care (01) ==
PROVIDERS: PCP Internal Medicine; Visit Provider Internal Medicine Cardiovascular Disease
DX: I42.8 Other cardiomyopathies (principal); I08.3 Combined rheumatic disorders of mitral, aortic and tricuspid valves; I27.20 Pulmonary hypertension, unspecified; I31.3 Pericardial effusion (noninflammatory)
CPT/HCPCS: 93306

== ENCOUNTER 2020-09-10 03:14 | Emergency (ER) | payer MEDICARE, OTHER, SELFPAY ==
--- NOTE | ~2020-09-10 | CT_ITS ---
EXAMINATION: CT cervical spine wo con DATE: 09/10/2020 04:23 INDICATION: Head injury. TECHNIQUE: Computed tomography (CT) of the cervical spine was performed without intravenous contrast. Automated exposure control and iterative reconstruction technique were employed. The dose-length pro duct was 283.01 mGy-cm. COMPARISON: Chest CT 04/24/2020 FINDINGS: There is mild scarring at the lung apices. There is a small right mastoid effusion. There i s a segmental comminuted fracture of the C1 ring. There is an oblique fracture of the base of the den s. The dens demonstrate 2 mm posterior displacement, 14 degrees rightward angulation, and 46 degrees posterior angulation with respect to the C2 body. There is 2 mm retrolisthesis of C3 on C4, 3 mm ante rolisthesis of C4 on C5, and 2 mm retrolisthesis of C5 on C6. There are compression fractures of T2 a nd T3 with less than 1/5 loss of height, new from 04/24/2020. There is a healing fracture of right T1 transverse process. There are nodules in the thyroid measuring up to 10 mm, likely not clinically sig nificant. The following disc levels are specifically discussed: C2-C3: There is no uncovertebral joint osteoarthritis. There is moderate bilateral facet joint osteoa rthritis. There is no neural foraminal stenosis. There is no central canal stenosis. C3-C4: There is moderate right and severe left uncovertebral joint osteoarthritis. There is severe bi lateral facet joint osteoarthritis. There is mild bilateral neural foraminal stenosis. There is mild central canal stenosis. C4-C5: There is severe right uncovertebral joint osteoarthritis. There is severe bilateral facet join t osteoarthritis. There is moderate right and mild left neural foraminal stenosis. There is mild cent ral canal stenosis. C5-C6: There is severe bilateral uncovertebral joint osteoarthritis. There is mild bilateral facet aida int osteoarthritis. There is moderate right and mild left neural foraminal stenosis. There is mild ce ntral canal stenosis. C6-C7: There is severe bilateral uncovertebral joint osteoarthritis. There is moderate right and melissa re left facet joint osteoarthritis. There is mild right and moderate left neural foraminal stenosis. There is mild central canal stenosis. C7-T1: There is no uncovertebral joint osteoarthritis. There is severe right and moderate left facet joint osteoarthritis. There is mild right neural foraminal stenosis. There is no central canal stenos is. IMPRESSION: 1. Comminuted fracture of the C1 ring. 2. Type II odontoid fracture. 3. Healing fracture of right T1 transverse process. 4. Acute versus subacute T2 and T3 compression fractures. 5. Severe cervical spondylosis. Reviewed, dictated and finalized at location A.
--- NOTE | ~2020-09-10 | CT_ITS ---
EXAMINATION: CT brain wo con DATE: 09/10/2020 04:23 INDICATION: Head injury. TECHNIQUE: Computed tomography (CT) of the head was performed without intravenous contrast. The mA wa s adjusted according to patient size. Iterative reconstruction technique was employed. The dose-lengt h product was 681.00 mGy-cm. COMPARISON: Head CT 04/21/2020 FINDINGS: There are old lacunar infarcts in the bilateral basal ganglia. There is no intracranial hem orrhage, acute infarction, or abnormal intracranial mass lesion. The ventricles are normal in size. T here is left frontal scalp soft tissue swelling with soft tissue gas, consistent with laceration. The re are likely changes of ocular lens replacement surgeries. There is mucosal thickening in the parana nahum sinuses. There is a small right mastoid effusion. There is a comminuted fracture of C1 ring. IMPRESSION: 1. Old lacunar infarcts in the bilateral basal ganglia. 2. Comminuted C1 fracture. Reviewed, dictated and finalized at location A.
--- NOTE | ~2020-09-10 | XR_ITS ---
EXAMINATION: XR chest 1V portable DATE: 09/10/2020 04:47 INDICATION: Fall. TECHNIQUE: A single frontal view of the chest was obtained. COMPARISON: Chest CT 04/24/2020, chest single view 04/23/2020 FINDINGS: The lung volumes are normal. There is a diffuse interstitial pattern in the lungs. No pleur al effusion or pneumothorax. The heart size is normal. There is a moderate-sized hiatal hernia. A rig ht subclavian central venous catheter is seen with tip in the superior vena cava. There are suture an chors in right humeral head. IMPRESSION: 1. Diffuse interstitial pattern in the lungs, likely mild pulmonary edema. 2. Cardiomegaly. 3. Moderate-sized hiatal hernia. Reviewed, dictated and finalized at location A.
[2020-09-10 03:21] VITALS: BP 158/75; PULSE 59; RESP 15; TEMP 36.9; O2SAT 100
--- NOTE | 2020-09-10 03:42 | PC.NURSE ---
Dr. Caldwell at bedside suturing laceration at this time.
--- NOTE | 2020-09-10 04:00 | PC.NURSE ---
in with pt suturing wound
[2020-09-10 04:26] LABS: Basophils Percent Auto 0.2 % (0.2-1.2); Eosinophils Absolute Auto 0.2 K/mm3 (0-0.3); Eosinophils Percent Auto 1.9 % (0-4.4); Hemoglobin 7.3 g/dL (14.0-18.0); Immature Granulocyte Absolute 0.03 K/mm3 (0.00-0.031); Immature Granulocyte Percent A 0.4 % (0-0.5); Lymphocytes Absolute Auto 1.03 K/mm3 (0.9-3.2); Lymphocytes Percent Auto 12.4 % (18.3-44.2); Mean Corpuscular HGB Conc 31.7 g/dl (32-36); Mean Corpuscular Hemoglobin 31.9 pg (26-34); Mean Corpuscular Volume 100.4 fl (80-100); Mean Platelet Volume 10.1 fl (7.4-10.4); Monocytes Absolute Auto 0.8 K/mm3 (0.1-0.6); Monocytes Percent Auto 9.5 % (2.6-8.5); Neutrophils Absolute Auto 6.3 K/mm3 (1.3-6.7); Neutrophils Percent Auto 75.6 % (45.5-73.1); Platelet Count Result 196 k/mm3 (150-375); Red Blood Count 2.29 M/mm3 (4.6-6.20); Red Cell Distribution Width 15.4 % (11.5-14.5); White Blood Count 8.3 K/mm3 (4.5-10.0)
[2020-09-10 04:36] LABS: INR 1.3; Prothrombin Time 15.8 Seconds (11.1-14.7)
[2020-09-10 04:38] LABS: Partial Thromboplastin Time 45.4 SECONDS (22.3-36.8)
[2020-09-10 04:41] LABS: Lipase 247 U/L (23-300)
[2020-09-10 04:42] LABS: Alanine Aminotransferase 15 U/L (4-50); Albumin Level 3.4 g/dL (3.5-5.1); Alkaline Phosphatase 150 U/L (38-126); Anion Gap 9 mmol/L (8-16); Aspartate Amino Transferase 29 U/L (17-59); Bilirubin,Total 0.4 mg/dL (0.2-1.3); Blood Urea Nitrogen 75 mg/dL (9-20); Carbon Dioxide 27 mmol/L (22-30); Chloride 90 mmol/L (98-107); Estimated CRCL calculation 9 ml/min; Estimated Glomerular Filt Rate 9; Glucose 105 mg/dL (75-110); Potassium 7.1 mmol/L (3.4-5.0); Sodium 126 mmol/L (137-145)
--- NOTE | 2020-09-10 04:42 | ECG_ITS ---
Measurements Intervals [place] Rate: 58 P: 71 ME: 157 QRS: 42 QRSD: 118 T: 68 QT: 414 QTc: 408 Interpretive Statements SINUS BRADYCARDIA NON-CONDUCTED PREMATURE ATRIAL COMPLEX POSSIBLE LEFT VENTRICULAR HYPERTROPHY PEAKED T WAVES- CONSIDER HYERKALEMIA OR ISCHEMIA ABNORMAL ECG Electronically Signed On 09-10-2020 6:57:37 CDT by Onofre Aly D.O.
[2020-09-10] MEDS: ONDANSETRON INJ 4 MG/2 ML VIAL IV PUSH (04:56)
[2020-09-10] MEDS: DEXTROSE 50% 25 GM/50 ML SYRINGE IV PUSH (04:59)
[2020-09-10] MEDS: INSULIN HUMAN REGULAR (*BKC) 100 UNITS/ML 10 UNITS IV PUSH (05:02)
--- NOTE | 2020-09-10 05:06 | ED.FALL ---
HPI - Fall General Chief Complaint: Fall Stated Complaint: ground level fall/ head lac Time Seen by Provider: 09/10/20 03:17 Source: RN notes reviewed History of Present Illness HPI Narrative: Patient presents to emergency department from [facility] via EMS for a fall. Patient is been having nausea and vomiting for the past 24 hours he gotten up to throw up this evening when he fell forward striking his head on the wall patient had been in a c-collar from a previous C1 fracture that is being cared for Johnson admitted July per EMS there was a large amount of blood at the facility and the patient has a large head wound to the forehead that continues to bleed state they removed the patient's c-collar he had on because it was soaked in blood and placed a new hard collar on the patient patient currently complains of pain to his head he is unsure if he is lost consciousness he denies any chest pain or shortness of breath. The patient is a dialysis patient with dialysis Thursday Related Data Home Medications Medication Instructions Recorded Confirmed atorvastatin 10 mg tablet 10 mg PO DAILY 02/25/19 07/24/20 acetaminophen 500 mg capsule 500 mg PO Q6H PRN 03/04/19 07/24/20 calcium polycarbophil [FiberCon] 1,250 mg PO BID 07/20/19 07/24/20 cholecalciferol (vitamin D3) 50 mcg PO DAILY 07/20/19 07/24/20 lactulose See Rx Instructions .ROUTE 07/20/19 07/24/20 .COMPLEX PRN sevelamer carbonate [Renvela] 800 mg TID 07/20/19 07/24/20 carvedilol 12.5 mg tablet 3.125 mg PO BID tablet 07/24/20 07/24/20 Allergies Allergy/AdvReac Type Severity Reaction Status Date / Time lisinopril Allergy Severe Swelling Verified 09/10/20 03:51 celecoxib AdvReac Mild back pain Verified 09/10/20 03:51 Anti-InflammatORY MEDS AdvReac Mild Other Uncoded 09/10/20 03:51 Review of Systems Review of Systems: Narrative: Gen.: Denies fevers or chills Eyes: Denies eye pain or visual change ENT: Denies congestion Respiratory: Denies shortness of breath or cough CV: Denies chest pain or palpitations GI: See HPI denies burning, urgency, frequency or hematuria Musculoskeletal: Denies back pain or muscle pain Neuro: Denies numbness, tingling, weakness or focal weakness Skin: See HPI Except as documented, all other systems reviewed and negative PMFSH Past Medical History Medical History Altered mental status Anemia in chronic kidney disease With history of blood transfusion. Angioedema (~11/2015) Attributed to DARRYN-inhibitor. Benign prostatic hyperplasia Cerebrovascular accident (~2010) Without residual deficit. Chronic back pain Colon polyp (~11/2017) Colonoscopy per Dr. Beltran revealed transverse colon polyp (tubular adenoma), diverticulosis, and internal hemorrhoids. Depression End-stage renal disease on hemodialysis Gastroesophageal reflux disease Hyperlipidemia Hypertension Melanoma in situ Physical deconditioning Pulmonary embolism Renal transplant failure and rejection (~01/2019) Surgical History Surgical History History of bilateral cataract extraction History of inguinal hernia repair History of kidney transplant History of melanoma excision Melanoma in situ excised from the face. History of repair of anterior cruciate ligament of left knee History of repair of right rotator cuff History of toe surgery Right 2nd toe surgery with hardware. Status post creation of arteriovenous fistula Left upper extremity. Family History Family History Mother Cerebrovascular accident Sibling Diabetes mellitus Hypertension Father Coronary artery disease Congestive heart disease Social History Social History Social History: The patient is and lives with his in [place]. 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 He is a l
[2020-09-10] MEDS: SODIUM BICARBONATE 8.4% 50 MEQ/50 ML SYRINGE IV PUSH (05:10)
[2020-09-10 05:13] VITALS: BP 148/69; PULSE 68; RESP 16; O2SAT 100
[2020-09-10 05:41] VITALS: BP 147/73; PULSE 68; RESP 15; O2SAT 100
== END 2020-09-10 05:45 | disposition short-term general hospital (02) ==
PROVIDERS: Emergency Provider Emergency Medicine; PCP Family Medicine
DX: S12.030A Displaced posterior arch fracture of first cervical vertebra, initial encounter for closed fracture (principal); S01.81XA Laceration without foreign body of other part of head, initial encounter; D64.9 Anemia, unspecified; E87.5 Hyperkalemia; R11.2 Nausea with vomiting, unspecified; I10 Essential (primary) hypertension; E78.5 Hyperlipidemia, unspecified; I12.0 Hypertensive chronic kidney disease with stage 5 chronic kidney disease or end stage renal disease; N18.6 End stage renal disease; Z86.73 Personal history of transient ischemic attack (TIA), and cerebral infarction without residual deficits; Z86.711 Personal history of pulmonary embolism; W18.39XA Other fall on same level, initial encounter
CPT/HCPCS: 12014; 36415; 70450; 71045; 72125; 80053; 83690; 85025; 85610; 85730; 86850; 86900; 86901; 93005; 96374; 96375; 99285; J1815; J2405